=== PATIENT | male | born 1945 | race Caucasian/White ===

== ENCOUNTER 2016-07-06 10:10 | Observation (INO) ==
[2016-07-06] MEDS ORDERED: ENOXAPARIN 100 MG/ML SYRINGE SUBCUT STA (10:34)
--- NOTE | 2016-07-06 10:38 | EKG Report ---
Stationary ECG Study [facility] ER Test Date: 07/06/2016 10:18:29 AM Pat Name: RAHUL AWAN Department: Room: 265 Gender: M Records Assistant: : 1945 Requested by: Jadiel Stevenson Order Number: [id number] Reading MD: MITZI SANTIAGO Intervals [place] Rate: 73 P: 999 MN: 135 QRS: 265 QRSD: 172 T: 88 QT: 415 QTc: 440 Interpretive Statements ELECTRONIC ATRIO-VENTRICULAR SEQUENTIAL PACEMAKER Electronically Signed On 07-08-16 11:31:21 CDT by MITZI SANTIAGO [email or web address]
[2016-07-06] MEDS ORDERED: ENOXAPARIN 120 MG/0.8 ML SYRINGE SUBCUT ONE ×2 (10:44→22:00)
[2016-07-06] MEDS ORDERED: ACETAMINOPHEN 325 MG TABLET ONE (10:47)
[2016-07-06 10:50] LABS: Basophils # 0.1 10*3/uL (0.0-0.2); Basophils % 0.8 % (0.0-0.8); Eosinophils # 0.2 10*3/uL (0.0-0.87); Eosinophils % 2.8 % (0.00-10.9); Hematocrit 39.5 VOL% (42.0-52.0); Hemoglobin 13.8 GM/DL (14.0-18.0); Immature Granulocytes % 0.5 %; Immature Granulocytes Absolute 0.03 #; Lymphocytes # 1.2 10*3/uL (1.4-4.0); Lymphocytes % 20.3 % (21.2-54.2); Mean Corpuscular HGB Conc 34.9 GM/DL (32-36); Mean Corpuscular Hemoglobin 32 PG (27-34); Mean Corpuscular Volume 90.8 FL (87-102); Mean Platelet Volume 9.5 FL (9.6-12.0); Monocytes # 0.5 10*3/uL (0.11-0.8); Monocytes % 8.8 % (1.7-12.7); Neutrophils # 4.1 10*3/uL (1.4-7.4); Neutrophils % 66.8 % (38.7-73.9); Platelet Count 199 T/CUMM (130-400); Red Blood Count 4.35 MC/CUMM (3.8-5.5); Red Cell Distribution Width 12.9 % (9.3-17.3); White Blood Count 6.1 T/CUMM (4-12)
[2016-07-06] MEDS ORDERED: ACETAMINOPHEN 325 MG TABLET PO ONE (10:50)
--- NOTE | 2016-07-06 10:57 | XRay Report ---
Portable chest Date: 07/06/2016 Clinical history: Chest pain Comparison: 04/13/2016 Technique: Portable AP sitting chest Findings: The heart is borderline in size with left subclavian atrioventricular AICD. Chronic scarring in the lungs with stable mediastinum and osseous structures. Old healed clavicular fractures noted. Impression: No significant change in the appearance of the chest. The heart remains borderline in size with left subclavian atrioventricular AICD with chronic scarring in the lungs. PROCEDURE INTERPRETED AT [facility] DEPARTMENT OF RADIOLOGY Final Report Signed by: Dr. Valeria Turner
[2016-07-06 11:35] LABS: Albumin 3.5 G/DL (3.4-5.0); Bilirubin,Total 0.8 MG/DL (0.2-1.0); Calcium 8.8 MG/DL (8.5-10.1); Potassium 4.1 MMOL/L (3.5-5.1)
--- NOTE | 2016-07-06 11:46 | Emergency Department Note ---
Fco Walter Hilary, am scribing for, and in the presence of, Jadiel Franklin MD 10:38. Noemi Walter Phillip K, MD, personally performed the services described in this documentation, ascribed by Shira Eagle in my presence, and it is both accurate and complete 146 . Arrival - Arrival Chief Complaint: Chest Pain Stated Complaint: left pain in arm and chest pain ED Nursing Triage Note: c/o pain in chest onset 0600. c/o numbness in lt arm and headache. Mode of Arrival: Wheelchair Limitations: No Limitations Source: Patient, RN Notes Reviewed - History of Present Illness HPI Narrative: Pt is a 71 y/o male presenting to the ED with c/o left arm pain and chest pain which onset 0600. Pt confirms left arm pain and numbness, nausea, and slight chest pains but denies diaphoresis, fever, cough, swelling in legs or SOB. Pt states that the pain worsens with exertion and when he takes a Nitro it eases up but comes back. Pt has a PMHx of Cardiac Dysrhythmia, HTN, RI, Pacemaker,PVD , CAD and had a Cardiac cath Apr 13 2016. Onset (ago): hour(s) Consistency: constant Allergies/Adverse Reactions: Allergies Allergy/AdvReac Type Severity Reaction Status Date / Time hydrocodone [From Lortab] Allergy RASH Verified 11/01/14 09:45 indomethacin [From Indocin] Allergy ANAPHYLAXIS Verified 11/01/14 09:45 Penicillins Allergy HIVES Verified 11/01/14 09:45 Home Medications: Home Medications Medication Instructions Recorded Confirmed Type Ascorbic Acid [Vitamin C] 1,000 mg PO BID 11/01/14 07/06/16 History Aspirin [Ecotrin] 81 mg PO DAILY 11/01/14 07/06/16 History Atorvastatin Calcium [Lipitor] 80 mg PO BEDTIME 11/01/14 07/06/16 History Carvedilol [Coreg] 12.5 mg PO BID 11/01/14 07/06/16 History Cholecalciferol (Vitamin D3) 2,000 unit PO BID 11/01/14 07/06/16 History [Vitamin D3] Coenzyme Q10 200 mg PO DAILY 11/01/14 07/06/16 History Cyanocobalamin (Vitamin B-12) 2,000 mcg PO BID 11/01/14 07/06/16 History [Vitamin B-12] Digoxin Tab [Lanoxin Tab] 0.25 mg PO BEDTIME 11/01/14 07/06/16 History Docusate Sodium Cap [Colace Cap] 200 mg PO BID 11/01/14 07/06/16 History Eplerenone [Inspra] 25 mg PO DAILY 11/01/14 07/06/16 History Folic Acid 200 mg PO BID 11/01/14 07/06/16 History Furosemide Tab [Lasix Tab] 40 mg PO QAM 11/01/14 07/06/16 History Gabapentin 300 mg PO BEDTIME 11/01/14 07/06/16 History Iron 65 mg PO QOTHER DAY 11/01/14 07/06/16 History Isosorbide Mononitrate [Imdur] 60 mg PO DAILY 11/01/14 07/06/16 History Magnesium 500 mg PO BEDTIME 11/01/14 07/06/16 History NIFEdipine XL TAB [Procardia Xl] 30 mg PO DAILY 11/01/14 07/06/16 History Nitroglycerin Sl Tab [Nitrostat] 0.4 mg SL Q5M PRN 11/01/14 07/06/16 History Omeprazole [Prilosec] 20 mg PO BID 11/01/14 07/06/16 History Potassium Chloride 20 meq PO BID 11/01/14 07/06/16 History Pyridoxine HCl [Vitamin B-6] 200 mg PO BEDTIME 11/01/14 07/06/16 History QUEtiapine [SEROquel] 75 mg PO BEDTIME 11/01/14 07/06/16 History Ranolazine [Ranexa] 1,000 mg PO BID 11/01/14 07/06/16 History Sertraline [Zoloft] 200 mg PO DAILY 11/01/14 07/06/16 History Thyroid [[place] Thyroid] 120 mg PO DAILY 11/01/14 07/06/16 History buPROPion SR [Wellbutrin Sr] 300 mg PO DAILY 11/01/14 07/06/16 History Clopidogrel [Plavix] 75 mg PO DAILY #30 tablet 01/24/15 07/06/16 Rx Cilostazol [Pletal] 100 mg PO BID #60 tablet 04/14/16 07/06/16 Rx Review of System - Review of System 12 point system: reviewed and no additional remarkable complaints except as stated - Review of System Constitutional: Absent: diaphoresis, fever Respiratory: Present: respiratory distress (chronic SOB). Absent: cough Cardiovascular: Present: chest pain (Slight) Gastrointestinal: Absent: abdominal pain Musculoskeletal: Present: arm pain (Left arm pain and numbness). Absent: joint swelling Neurological: Present: numbness (left arm) Medical,Surgical,& Family Hx - Medical History Cardio: History of: Cardiac Dysrhythmia, CAD, Hypertension, RI, Pacemaker, PVD Psychological: History of: Anxiety Disorders, Depression, Psychiatric Problems Neurology: No history of: Seizures HEENT: History of: Eye Problem (right cataract) Endocrine: History of: Thyroid Disorder Gastrointestinal: History of: GERD Musculoskeletal: History of: Back/Neck Problems, Degenerative Disk Disease - Surgical History Cardiac Surgeries: Sugical HX of: Cardiac Catheterization (stents), Internal Defibrillator - Family History Family History: Reports;: Family Hypertension - Social History Smoking Status: Former smoker Frequency of Alcohol Use: None Type of Drug Use: None Exam Vital Signs: Vital Signs Temperature 97.9 F 07/06/16 10:22 Pulse Rate 70 07/06/16 11:00 Respiratory Rate 12 07/06/16 11:00 Blood Pressure 127/78 07/06/16 11:00 O2 Sat by Pulse Oximetry 96 07/06/16 11:00 - General General appearance: alert, in no apparent distress - Head Head exam: Present: atraumatic, normocephalic - Eye Eye exam: Present: normal appearance, PERRL, EOMI - ENT ENT exam: Present: mucous membranes moist, TM's normal bilaterally. Absent: mucous membranes dry - Neck Neck exam: Present: trachea midline. Absent: tenderness - Chest Chest inspection: Present: symmetric chest wall rise. Absent: tenderness - Respiratory Respiratory exam: Present: normal lung sounds bilaterally. Absent: respiratory distress - Cardiovascular Cardiovascular exam: Present: regular rate, normal rhythm, normal heart sounds. Absent: murmur, rubs, gallop - Abdominal Exam Abdominal exam: Present: soft, normal bowel sounds. Absent: distention, tenderness - Extremities Exam Extremities exam: Present: full ROM. Absent: tenderness, pedal edema - Back Exam Back exam: Present: full ROM, CVA tenderness (R), other (Right Paracervical tenderness, Right thoracic tenderness) - Neurological Exam Neurological exam: Present: alert, oriented X3, CN II-XII intact. Absent: motor sensory deficit - Psychiatric Psychiatric exam: Present: normal affect, normal mood - Skin Skin exam: Present: warm, dry, intact, normal color. Absent: rash Results - Labs CBC & BMP: 07/06/16 10:39 07/06/16 10:39 Lab Results: I have reviewed the patients labs (cardiac enzymes are negative) Labs: Laboratory Tests 07/06/16 10:39 WBC 6.1 RBC 4.35 Hgb 13.8 L Hct 39.5 L MPV 9.5 L Lymph % (Auto) 20.3 L Lymph # (Auto) 1.2 L Laboratory Tests 07/06/16 10:39 Sodium 143 Potassium 4.1 Chloride 107 Carbon Dioxide 28 Glucose 116 H Albumin/Globulin Ratio 1.0 L - EKG EKG results: interpreted by AJIT (pacemaker rhythm) - Diagnostic Findings Procedure: Chest x-ray: report reviewed by me (No significant change in the appearance of the chest. The heart remains borderline in size with left subclavian atrioventricular AICD with chronic scarring in the lungs. ) Disposition Clinical Impression: Unstable angina pectoris, Chest pain Case discussed with: patient, patient's family Disposition: Still a Patient Condition: Guarded Additional Instructions: Admitted to cardiology for further workup.
[2016-07-06] MEDS ORDERED: MAGNESIUM SULF RIDER 2 GM in PREMIX 1 EACH IV PRN ×3 (12:50→13:47)
[2016-07-06] MEDS ORDERED: DOCUSATE SODIUM 100 MG CAPSULE PO PRN (12:50)
[2016-07-06] MEDS ORDERED: ONDANSETRON 4 MG/2 ML VIAL IV PRN (12:50)
[2016-07-06] MEDS ORDERED: ZALEPLON 5 MG CAPSULE PO PRN (12:50)
[2016-07-06] MEDS ORDERED: MAGNESIUM SULF RIDER 4 GM in PREMIX 1 EACH IV PRN ×2 (12:50→13:47)
[2016-07-06] MEDS ORDERED: diphenhydrAMINE CAP 25 MG CAPSULE PO ONE (12:54)
[2016-07-06] MEDS ORDERED: DIAZEPAM 5 MG TABLET PO ONE (12:54)
[2016-07-06] MEDS ORDERED: POTASSIUM CHLORIDE RIDER 10 MEQ in PREMIX 1 EACH IV PRN (12:54)
--- NOTE | 2016-07-06 12:55 | Cardiology History & Physical ---
<Karina Mark E - Last Filed: 07/06/16 14:03> Assessment and Plan - Time spent with patient Time spent with patient: Greater than 30 minutes (1) CAD (coronary artery disease) Status: Chronic Assessment and plan: See plan of care listed below Current Visit: No (2) HTN (hypertension) Status: Chronic Assessment and plan: See plan of care listed below Current Visit: No (3) Hyperlipidemia Status: Chronic Assessment and plan: See plan of care listed below Current Visit: No (4) Paroxysmal atrial fibrillation Status: Chronic Assessment and plan: See plan of care listed below Current Visit: No (5) Chest pain Status: Acute Assessment and plan: See plan of care listed below Current Visit: Yes (6) ICD (implantable cardioverter-defibrillator) in place Status: Chronic Assessment and plan: See plan of care listed below Current Visit: No (7) Biventricular ICD (implantable cardioverter-defibrillator) in place Status: Chronic Assessment and plan: See plan of care listed below Current Visit: No (8) Ischemic cardiomyopathy Status: Chronic Assessment and plan: See plan of care listed below Current Visit: No (9) Left bundle branch block (LBBB) Status: Chronic Assessment and plan: See plan of care listed below Current Visit: No (10) Sleep apnea Status: Chronic Assessment and plan: See plan of care listed below Current Visit: No History of Present Illness Chief complaint: left arm pain, chest pain, SOB, known CAD History of present illness: NURSES' ASSOCIATION EXECUTIVE DIRECTOR: DR. JOSE CARLOS HAMMER PATIENT IS BEING SEEN IN THE ER OF [facility] Mr. Flood, 71WM, routinely followed by Dr. Hammer. He was last seen in marketing database analyst clinic April 27, 2016. Risk factors include: Age, known coronary artery disease, hypertension, hyperlipidemia, sedentary lifestyle, family history of premature coronary artery disease. He also has a history of compensated ischemic cardiomyopathy, status post ICD implantation, atrial fibrillation and sleep apnea. History of severe, complex, diffuse multivessel coronary artery disease. Most recently, April 13, 2016, patient underwent cardiac catheterization requiring PCI to the mid LAD, p.o. twice daily of the ostium of the first diagonal coronary artery. November 20, 2015 he underwent PCI of the mid LAD just proximal to and overlapping with the previously placed stent. PCI of some in-stent restenosis in the previously placed LAD artery stent. PCI to the first diagonal branch where it was jailed. Heart catheterization January 2015 patient required PCI to the mid LAD. At most recent discharge, patient has been maintained on aspirin, Plavix and Pletal. He has been compliant with his medications. Patient presented to the emergency department this morning after experiencing left arm pain. This is been occurring intermittently for approximately 3 weeks. He describes the discomfort as an aching sensation and cannot be reproduced with movement or palpation. He states that this discomfort is the same type of discomfort he had when PCI was being performed during heart catheterization. Patient also acknowledges he has had chest discomfort he labels as "indigestion" but describes as a heaviness and squeezing sensation in the center of his chest, occurring laterally across the mid chest area. This has been occurring over the past week intermittently. He is sedentary and therefore cannot identify a significant change in his exercise tolerance but does believe he is more short of breath with exertion over the past several weeks. He can identify no aggravating factors nor any alleviating factors. He rates the discomfort as a 7 on a scale of 1-10. He is currently chest pain and arm pain free. Patient also reports that this past week he felt as if he received an unusual sensation from his ICD. He felt as if he was "falling backwards" yet he was in bed asleep first 2 times. The third time he was awake sitting on the bedside when it occurred. He was not sure if it actually "fired" or just "felt funny". He had the device interrogated [facility]. He was found to be working appropriately without defibrillation. Cardiac biomarkers are negative. We will continue to cycle. EKG reveals a chronic left bundle branch block. I discussed with Dr. Bledsoe. Will admit him to telemetry, keep him n.p.o. after midnight tonight for cardiac catheterization to be performed by Dr. Hammer tomorrow around noon. He has received aspirin and Lovenox, nitrates. We will continue beta-blockers, lipid- lowering agents. Hold DOMINIC inhibitor until after heart catheterization. ASSESSMENT/PLAN: 1. CHEST PAIN - patient has severe, complex, diffuse multivessel coronary artery disease. Will keep n.p.o. for cardiac catheterization tomorrow 2. LEFT ARM PAIN -patient reports a left arm pain is "the exact pain Dr. Hammer was able to reproduce during the Product Sales Engineer procedure." Suspicious for angina 3. KNOWN, SEVERE CAD - see plan of care listed above 4. HYPERTENSION - will adjust medications accordingly during hospital stay 5. DYSLIPIDEMIA - continue lipid-lowering agent 6. SLEEP DISORDER - use sleep device while hospitalized 7. S/P ICD - recently interrogated and found to be working appropriately without a recent firing of the ICD Home Medications Medication Instructions Recorded Confirmed Type Ascorbic Acid [Vitamin C] 1,000 mg PO BID 11/01/14 07/06/16 History Aspirin [Ecotrin] 81 mg PO DAILY 11/01/14 07/06/16 History Atorvastatin Calcium [Lipitor] 80 mg PO BEDTIME 11/01/14 07/06/16 History Carvedilol [Coreg] 12.5 mg PO BID 11/01/14 07/06/16 History Cholecalciferol (Vitamin D3) 2,000 unit PO BID 11/01/14 07/06/16 History [Vitamin D3] Coenzyme Q10 200 mg PO DAILY 11/01/14 07/06/16 History Cyanocobalamin (Vitamin B-12) 2,000 mcg PO BID 11/01/14 07/06/16 History [Vitamin B-12] Digoxin Tab [Lanoxin Tab] 0.25 mg PO BEDTIME 11/01/14 07/06/16 History Docusate Sodium Cap [Colace Cap] 200 mg PO BID 11/01/14 07/06/16 History Eplerenone [Inspra] 25 mg PO DAILY 11/01/14 07/06/16 History Folic Acid 200 mg PO BID 11/01/14 07/06/16 History Furosemide Tab [Lasix Tab] 40 mg PO QAM 11/01/14 07/06/16 History Gabapentin 300 mg PO BEDTIME 11/01/14 07/06/16 History Iron 65 mg PO QOTHER DAY 11/01/14 07/06/16 History Isosorbide Mononitrate [Imdur] 60 mg PO DAILY 11/01/14 07/06/16 History Magnesium 500 mg PO BEDTIME 11/01/14 07/06/16 History NIFEdipine XL TAB [Procardia Xl] 30 mg PO DAILY 11/01/14 07/06/16 History Nitroglycerin Sl Tab [Nitrostat] 0.4 mg SL Q5M PRN 11/01/14 07/06/16 History Omeprazole [Prilosec] 20 mg PO BID 11/01/14 07/06/16 History Potassium Chloride 20 meq PO BID 11/01/14 07/06/16 History Pyridoxine HCl [Vitamin B-6] 200 mg PO BEDTIME 11/01/14 07/06/16 History QUEtiapine [SEROquel] 75 mg PO BEDTIME 11/01/14 07/06/16 History Ranolazine [Ranexa] 1,000 mg PO BID 11/01/14 07/06/16 History Sertraline [Zoloft] 200 mg PO DAILY 11/01/14 07/06/16 History Thyroid [[place] Thyroid] 120 mg PO DAILY 11/01/14 07/06/16 History buPROPion SR [Wellbutrin Sr] 300 mg PO DAILY 11/01/14 07/06/16 History Clopidogrel [Plavix] 75 mg PO DAILY #30 tablet 01/24/15 07/06/16 Rx Cilostazol [Pletal] 100 mg PO BID #60 tablet 04/14/16 07/06/16 Rx Allergies Allergy/AdvReac Type Severity Reaction Status Date / Time hydrocodone [From Lortab] Allergy RASH Verified 11/01/14 09:45 indomethacin [From Indocin] Allergy ANAPHYLAXIS Verified 11/01/14 09:45 Penicillins Allergy HIVES Verified 11/01/14 09:45 Review of systems: REVIEW OF SYSTEMS: See HPI - Constitutional Constitutional: Present: Chronic fatigue. Absent: syncope, anorexia, night sweats - EENT Eyes: Absent: blurry vision, loss of vision, diplopia Ears: Absent: decreased hearing, ear pain, ear discharge - Cardiovascular Cardiovascular: Present: chest pain with exertion and at rest. Dyspnea on exertion. Denies edema or palpitations. Absent: chest pain with deep breath, claudication - Respiratory Respiratory: Present: ZULETA, denies cough. Absent: wheezing, hemoptysis, change in phlegm color - Gastrointestinal Gastrointestinal: Denies constipation. Did have nausea this morning. Absent: abdominal pain, hematemesis, hematochezia, melena, change in bowel habits, nausea - Genitourinary Genitourinary: Absent: difficulty urinating, dysuria, urinary hesitancy, flank pain - Musculoskeletal Musculoskeletal: Present: back pain in mid and lower back previously requiring injections. Absent: joint swelling, muscle cramps, muscle weakness - Neurological Neurological: Present: normal gait without frequent falls. Absent: dizziness, hemiparesis - Psychiatric Psychiatric: Absent: anxiety, depression, difficulty concentrating - Endocrine Endocrine: Present: fatigue. Absent: cold intolerance, heat intolerance, polyuria, polyphagia, polydipsia - Hematologic/Lymphatic Hematologic/Lymphatic: Present: easy bruising. Absent: easy bleeding -Integumentary Integumentary: Absent: lesions, rashes, skin breakdown Medical,Surgical,& Family Hx - Medical History Cardio: History of: Cardiac Dysrhythmia, CAD, Hypertension, [place], Pacemaker, PVD Psychological: History of: Anxiety Disorders, Depression, Psychiatric Problems Neurology: No history of: Seizures HEENT: History of: Eye Problem (right cataract) Endocrine: History of: Thyroid Disorder Gastrointestinal: History of: GERD Musculoskeletal: History of: Back/Neck Problems, Degenerative Disk Disease - Surgical History Cardiac Surgeries: Sugical HX of: Cardiac Catheterization (stents), Internal Defibrillator - Family History Family History: Reports;: Family Hypertension - Social History Smoking Status: Former smoker Have you smoked in the last 12 months: No Frequency of Alcohol Use: None Type of Drug Use: None Marital Status: Lives With:: Spouse Functional capacity: independent ambulation Cardiology Physical Exam - Constitutional Vitals: Vital Signs Temp Pulse Resp BP Pulse Ox 97.9 F 72 13 137/74 95 07/06/16 10:22 07/06/16 11:30 07/06/16 11:30 07/06/16 11:30 07/06/16 11:30 Intake and Output 07/05/16 07/06/16 07/06/16 23:59 07:59 15:59 Other: Weight 113.852 kg Patient Weight 07/06/16 23:59 Weight 113.852 kg Exam: General: Awake alert and oriented 3. [Pleasant and cooperative. ] [Appears comfortable.] HEENT: [PERRL, normocephalic, atraumatic. Mucous membranes moist. No jaundice noted. Conjunctiva moist and clear, sclerae anicteric] Neck: No JVD/HJR, no thyromegaly or lymphadenopathy noted. No carotid bruit appreciated Cardiac: [Regular rate and rhythm.] [No obvious murmur rub or gallop.] 9 tender chest and shoulder area. Lungs: [Clear to auscultation without accessory muscle use to assist the respiratory pattern.] Using oxygen intermittently Abdomen: Soft, bowel sounds normoactive. Nontender and nondistended. No abdominal bruit or thrill noted. No masses noted. Musculoskeletal: No fluid collection. Decreased range of motion is noted. Extremities: No clubbing, cyanosis noted. [ No edema noted.] Upper extremity pulses 2+. Lower extremity pulses 2+. Capillary refill less than 3 seconds. Skin: No unusual lesions or rashes. No skin breakdown appreciated. Neuro: Moves all extremities well without hemiparesis or paralysis. No essential tremor is appreciated. Result/EKG - Labs CBC & BMP: 07/06/16 10:39 07/06/16 10:39 Lab Results: I have reviewed the past 24 hour labs Labs: Laboratory Results - last 24 hr 07/06/16 07/06/16 07/06/16 10:39 10:39 10:39 WBC 6.1 RBC 4.35 Hgb 13.8 L Hct 39.5 L MCV 90.8 MCH 32 MCHC 34.9 RDW 12.9 Plt Count 199 MPV 9.5 L Neut % (Auto) 66.8 Lymph % (Auto) 20.3 L [place] % (Auto) 8.8 Eos % (Auto) 2.8 Baso % (Auto) 0.8 Neut # (Auto) 4.1 Lymph # (Auto) 1.2 L [place] # (Auto) 0.5 Eos # (Auto) 0.2 Baso # (Auto) 0.1 Immature Gran % 0.5 Nucleated RBC % 0.0 Immature Gran # 0.03 Nucleated RBCs # 0.00 Sodium 143 Potassium 4.1 Chloride 107 Carbon Dioxide 28 Anion Gap 12.1 BUN 13 Creatinine 0.90 GFR Calculation 120 BUN/Creatinine Ratio 14.00 Glucose 116 H Calculated Osmolality 285.0 Calcium 8.8 Magnesium Total Bilirubin 0.80 AST 21 ALT 27 Alkaline Phosphatase 84 Troponin I 0.044 B-Natriuretic Peptide Total Protein 7.0 Albumin 3.5 Globulin 3.5 Albumin/Globulin Ratio 1.0 L 07/06/16 07/06/16 10:39 10:39 WBC RBC Hgb Hct MCV MCH MCHC RDW Plt Count MPV Neut % (Auto) Lymph % (Auto) [place] % (Auto) Eos % (Auto) Baso % (Auto) Neut # (Auto) Lymph # (Auto) [place] # (Auto) Eos # (Auto) Baso # (Auto) Immature Gran % Nucleated RBC % Immature Gran # Nucleated RBCs # Sodium Potassium Chloride Carbon Dioxide Anion Gap BUN Creatinine GFR Calculation BUN/Creatinine Ratio Glucose Calculated Osmolality Calcium Magnesium 2.3 Total Bilirubin AST ALT Alkaline Phosphatase Troponin I B-Natriuretic Peptide 79 Total Protein Albumin Globulin Albumin/Globulin Ratio - Diagnostic Findings Procedure: Chest x-ray: report reviewed by me - EKG EKG results: interpreted by me EKG shows: sinus rhythm (Left bundle branch block, chronic) <Caitlyn Bledsoe - Last Filed: 07/06/16 19:51> History of Present Illness History of present illness: I have personally interviewed and evaluated the patient, reviewed the chart and discussed medical decision-making with Practitioner Deedee. I have read this note and agree with her documentation here in. The patient has an anginal equivalent or left arm pain, and has been experiencing exertional symptoms of this angina. We will proceed with left heart catheterization tomorrow with Dr. Hammer. Patient is agreeable. No history of dye allergy. Cardiology Physical Exam - Constitutional Vitals: Vital Signs Temp Pulse Resp BP Pulse Ox 98.5 F 75 18 152/89 96 07/06/16 19:24 07/06/16 19:24 07/06/16 19:24 07/06/16 19:24 07/06/16 19:24 Intake and Output 07/06/16 07/06/16 07/06/16 07:59 15:59 23:59 Other: Weight 113.852 kg Patient Weight 07/06/16 23:59 Weight 113.852 kg Result/EKG - Labs CBC & BMP: 07/06/16 10:39 07/06/16 10:39 Labs: Laboratory Results - last 24 hr 07/06/16 07/06/16 15:48 18:42 Troponin I 0.031 0.043
[2016-07-06] MEDS: SODIUM CHLORIDE 0.45% 1,000 ML IV SCH (16:00)
[2016-07-06] MEDS: CARVEDILOL 12.5 MG TABLET PO SCH (22:59)
[2016-07-06] MEDS: POTASSIUM CHLORIDE 20 MEQ TABLET PO SCH (23:00)
[2016-07-06] MEDS: DIGOXIN 0.25 MG TABLET PO SCH (23:00)
[2016-07-06] MEDS: ATORVASTATIN 80 MG TABLET PO SCH (23:00)
[2016-07-06] MEDS: FOLIC ACID 0.4 MG TABLET PO SCH (23:00)
[2016-07-06] MEDS: GABAPENTIN 300 MG CAPSULE PO SCH (23:01)
[2016-07-06] MEDS: MAGNESIUM GLUCONATE 500 MG TABLET PO SCH (23:01)
[2016-07-06] MEDS: QUEtiapine 25 MG TABLET PO SCH (23:05)
[2016-07-06] MEDS: RANOLAZINE 500 MG TABLET PO SCH (23:05)
[2016-07-06] MEDS: CYANOCOBALAMIN 500 MCG TABLET PO SCH (23:05)
[2016-07-06] MEDS: PYRIDOXINE 100 MG TABLET PO SCH (23:05)
[2016-07-06] MEDS: CILOSTAZOL 100 MG TABLET PO SCH (23:05)
[2016-07-06] MEDS: CHOLECALCIFEROL 1,000 UNIT TABLET PO SCH (23:06)
[2016-07-06] MEDS: ASCORBIC ACID 500 MG TABLET PO SCH (23:06)
[2016-07-07] MEDS: NITROGLYCERIN SL 0.4 MG TABLET SL PRN ×3 (02:47→02:58)
[2016-07-07] MEDS ORDERED: MORPHINE 2 MG/1 ML SYRINGE ONE (03:11)
[2016-07-07] MEDS ORDERED: MORPHINE 2 MG/1 ML SYRINGE IV PRN (03:12)
[2016-07-07 04:50] LABS: Basophils % 0.5 % (0.0-0.8); Eosinophils # 0.2 10*3/uL (0.0-0.87); Eosinophils % 3.6 % (0.00-10.9); Hematocrit 36.2 VOL% (42.0-52.0); Hemoglobin 12.6 GM/DL (14.0-18.0); Immature Granulocytes % 0.5 %; Immature Granulocytes Absolute 0.03 #; Lymphocytes # 1.6 10*3/uL (1.4-4.0); Lymphocytes % 27.5 % (21.2-54.2); Mean Corpuscular HGB Conc 34.8 GM/DL (32-36); Mean Corpuscular Hemoglobin 32 PG (27-34); Mean Corpuscular Volume 91.4 FL (87-102); Mean Platelet Volume 9.6 FL (9.6-12.0); Monocytes # 0.5 10*3/uL (0.11-0.8); Monocytes % 8.7 % (1.7-12.7); Neutrophils # 3.4 10*3/uL (1.4-7.4); Neutrophils % 59.2 % (38.7-73.9); Platelet Count 172 T/CUMM (130-400); Red Blood Count 3.96 MC/CUMM (3.8-5.5); Red Cell Distribution Width 12.8 % (9.3-17.3); White Blood Count 5.8 T/CUMM (4-12)
[2016-07-07 05:29] LABS: Albumin 3.2 G/DL (3.4-5.0); Bilirubin,Total 0.8 MG/DL (0.2-1.0); Calcium 8.3 MG/DL (8.5-10.1); Osmolality,Calculated 283.1 MOS/KG (273-304); Potassium 3.6 MMOL/L (3.5-5.1); Risk Ratio 2.96; Total Protein 6.1 G/DL (6.4-8.3); VLDL CHOLESTEROL 20.4 MG/DL
--- NOTE | 2016-07-07 07:09 | EKG Report ---
Stationary ECG Study [facility] Test Date: 07/06/2016 5:13:58 PM Pat Name: RAHUL AWAN Department: Room: 265 Gender: M Pulverizer Feeder: Ct : 1945 Requested by: Jadiel Stevenson Order Number: [id number] Reading MD: PANFILO REMY Intervals [place] Rate: 70 P: 999 NV: 141 QRS: -69 QRSD: 168 T: 91 QT: 426 QTc: 447 Interpretive Statements ELECTRONIC VENTRICULAR PACEMAKER NO FURTHER INTERPRETATION POSSIBLE ATYPICAL ECG Electronically Signed On 07-08-16 15:16:26 CDT by PANFILO REMY [email or web address]
--- NOTE | 2016-07-07 07:10 | EKG Report ---
Stationary ECG Study [facility] Test Date: 07/07/2016 2:46:21 AM Pat Name: RAHUL AWAN Department: Room: 265 Gender: M It Technical Support Specialist: Giovanni : 1945 Requested by: Cl Galvan Order Number: [id number] Reading MD: CL GALVAN Intervals [place] Rate: 70 P: 999 NV: 101 QRS: 266 QRSD: 167 T: 80 QT: 442 QTc: 463 Interpretive Statements ELECTRONIC A-VENTRICULAR PACEMAKER NO FURTHER INTERPRETATION POSSIBLE ATYPICAL ECG Electronically Signed On 07-08-16 14:55:29 CDT by CL GALVAN [email or web address]
[2016-07-07] MEDS: CYANOCOBALAMIN 500 MCG TABLET PO SCH ×2 (09:10→22:15)
[2016-07-07] MEDS: buPROPion SR 150 MG TABLET PO SCH (09:11)
[2016-07-07] MEDS: RANOLAZINE 500 MG TABLET PO SCH ×2 (09:11→22:12)
[2016-07-07] MEDS: ASCORBIC ACID 500 MG TABLET PO SCH ×2 (09:12→22:17)
[2016-07-07] MEDS: CILOSTAZOL 100 MG TABLET PO SCH ×2 (09:12→22:15)
[2016-07-07] MEDS: CHOLECALCIFEROL 1,000 UNIT TABLET PO SCH ×2 (09:12→22:16)
[2016-07-07] MEDS: COENZYME Q10 100 MG CAPSULE PO SCH (09:13)
[2016-07-07] MEDS: THYROID 60 MG TABLET PO SCH (09:13)
[2016-07-07] MEDS: EPLERENONE 25 MG TABLET PO SCH (09:13)
[2016-07-07] MEDS: FOLIC ACID 0.4 MG TABLET PO SCH ×2 (09:13→22:13)
[2016-07-07] MEDS: CLOPIDOGREL 75 MG TABLET PO SCH (09:14)
[2016-07-07] MEDS: ISOSORBIDE MONONITRATE 60 MG TABLET PO SCH (09:14)
[2016-07-07] MEDS: CARVEDILOL 12.5 MG TABLET PO SCH ×2 (09:14→22:13)
[2016-07-07] MEDS: PANTOPRAZOLE 40 MG TABLET PO SCH (09:14)
[2016-07-07] MEDS: POTASSIUM CHLORIDE 20 MEQ TABLET PO SCH ×2 (09:14→22:14)
[2016-07-07] MEDS: SERTRALINE 100 MG TABLET PO SCH (09:14)
[2016-07-07] MEDS: ASPIRIN EC 81 MG TABLET PO SCH (09:15)
[2016-07-07] MEDS: FUROSEMIDE 40 MG TABLET PO SCH (09:16)
[2016-07-07] MEDS ORDERED: LIDOCAINE 1% 20 ML VIAL ONE ×2 (09:56→11:01)
[2016-07-07] MEDS ORDERED: DIAZEPAM 5 MG TABLET PO ONE (10:00)
[2016-07-07] MEDS ORDERED: diphenhydrAMINE CAP 25 MG CAPSULE PO ONE (10:00)
[2016-07-07] MEDS: SODIUM CHLORIDE 0.45% 1,000 ML IV SCH (10:04)
[2016-07-07] MEDS ORDERED: HEPARIN/NACL 0.9% 2 UNITS/ML 1,000 ML IV ONE (11:01)
[2016-07-07] MEDS ORDERED: HYDROmorphone 2 MG/1 ML VIAL ONE (11:35)
[2016-07-07] MEDS ORDERED: MIDAZOLAM 2 MG/2 ML VIAL ONE (11:35)
[2016-07-07] MEDS ORDERED: ENOXAPARIN 60 MG/0.6 ML SYRINGE ONE (11:52)
[2016-07-07] MEDS ORDERED: CLOPIDOGREL 300 MG TABLET ONE (11:55)
[2016-07-07] MEDS ORDERED: ACETAMINOPHEN 325 MG TABLET PO PRN (12:20)
[2016-07-07] MEDS ORDERED: ACETAMINOPHEN/CODEINE 300-30 MG TABLET PO PRN (12:20)
[2016-07-07] MEDS ORDERED: SODIUM CHLORIDE 0.9% 1,000 ML IV SCH (12:30)
--- NOTE | 2016-07-07 12:31 | Cardiac Catheterization ---
Date of Procedure:: 07/07/16 Procedure: CLINICAL SUMMARY: The patient presented with recurrent symptoms of unstable angina. He has known severe diffuse multivessel coronary artery disease and is now undergoing cardiac catheterization for definitive coronary artery assessment and possible revascularization. PROCEDURES PERFORMED: 1. Right femoral percutaneous arteriotomy 2. Resting hemodynamics. 3. Coronary arteriography. 4. Successful percutaneous coronary intervention to the proximal left anterior descending coronary artery with a 2.5 x 12 mm Xience Alpine drug-eluting stent. 5. Successful percutaneous coronary intervention to the first diagonal branch with balloon angioplasty through the side of the stent with a 2.5 x 12 mm Farrell angioplasty balloon. 6. Right femoral arteriogram. 7. Angio-Seal closure of the right femoral artery. DESCRIPTION OF PROCEDURE: After obtaining informed consent, the patient was brought to the cardiac catheterization lab where the right groin was prepped and draped in the usual sterile manner. Using IV sedation, local anesthesia, and Modified Seldinger technique, a needle was placed in the right femoral artery and a sheath was positioned without difficulty. A left coronary catheter was advanced over a guidewire under fluoroscopic control to the ascending aorta where angiograms of the left coronary artery were undertaken in multiple views. After adequate angiograms, this catheter was withdrawn and we proceeded directly to percutaneous coronary intervention. We engaged the left main coronary artery with an EBU 3.75 interventional guide and passed PT Graphix wire beyond the area of stenosis in the proximal left anterior setting coronary artery. Performed balloon angioplasty of a high-grade lesion with a 2.5 x 12 mm Farrell angioplasty balloon. I then pulled the wire backing crossed into the diagonal branch and used the same balloon to perform balloon angioplasty of the ostial first diagonal branch. I then reposition the wire in the distal left anterior descending coronary artery and I stented the left anterior descending coronary artery with a 2.5 x 12 mm Xience Alpine drug- eluting stent. This stent was within a previously placed in an overlapping with the next previously placed stent. An excellent angiographic result was achieved at the site of intervention with no significant residual stenosis. We then pulled our wire back and passed into the diagonal branch again. We had to use a new 2.5 x 12 mm Farrell balloon but we were able to perform balloon angioplasty of the jailed first diagonal branch. A good angiographic result was achieved. There were no problems or complications with the intervention. After the intervention, a right femoral arteriogram was performed showing adequate sheath placement for closure device deployment. The sheath was then removed and an Angio-Seal device was used to obtain hemostasis. The patient was transferred back to the room having suffered no immediate complications. HEMODYNAMICS: See the accompanying data sheet. CORONARY ARTERIOGRAPHY: LEFT MAIN: The left main coronary artery is a large caliber vessel, which trifurcates into the left anterior descending , ramus intermedius and left circumflex coronary arteries. The left main coronary artery has no significant obstructive disease. LEFT CIRCUMFLEX: The left circumflex coronary artery is a moderate size vessel which gives off a small diffusely diseased first obtuse marginal branch and a moderate size second obtuse marginal branch. There are some diffuse atherosclerotic disease but no significant focal obstruction in the left circumflex system. There has been no significant change in this vessel since the previous catheterization. RAMUS INTERMEDIUS: Ramus intermedius is a moderate size vessel which courses over the anterolateral wall. It has diffuse mild to moderate atherosclerosis but no significant focal obstruction. There is a stent in the distal portion of this vessel which is widely patent. LEFT ANTERIOR DESCENDING: The left anterior descending artery is a moderate size vessel which gives off a moderate-sized diagonal branch proximally. The left anterior descending artery wraps the apex. There is significant in-stent restenosis within the previously placed in the proximal left anterior descending coronary artery involving the origin of the first diagonal branch of up to 90%. There is also a 90% stenosis of the origin of the diagonal branch. The previously placed stents in the midportion of the vessel which were done at his previous catheterization are widely patent. The distal left anterior see a artery has some diffuse disease but no focal high-grade obstruction. RIGHT CORONARY ARTERY: The right coronary artery is known to be occluded in its midsegment from multiple catheterizations in the past and was not reengaged at this time. There is filling of the distal vessel via contralateral collaterals. LEFT VENTRICULOGRAPHY: Left ventriculogram was not performed at this time. PERIPHERAL ARTERIOGRAPHY: Right femoral arteriogram shows a normal right iliofemoral artery with adequate sheath placement for closure device deployment. IMPRESSIONS: 1. Successful for continues coronary intervention to the proximal left anterior setting coronary artery at the site of in-stent restenosis with a 2.5 x 12 mm Xience Alpine drug-eluting stent. 2. Successful percutaneous coronary intervention to the jailed first diagonal branch with a 2.5 x 12 mm Farrell angioplasty balloon. 3. The right coronary artery is known to be occluded. The distal vessel fills via collaterals. 4. Known severe ischemic cardiomyopathy. I did not repeat ventriculography at this time. 5. Normal right iliofemoral artery with successful and distal closure. PLAN: The patient was transferred to his room for post-interventional monitoring and management. If he does well overnight and probably send him home tomorrow with follow-up in a week or 2. Anesthesia: minimal conscious sedation Surgeon / Physician: Jose Hammer Estimated blood loss: minimal Condition: stable Disposition: floor - Medications / Follow-up
--- NOTE | 2016-07-07 13:53 | EKG Report ---
Stationary ECG Study [facility] Test Date: 07/07/2016 1:53:14 PM Pat Name: RAHUL AWAN Department: Room: 265 Gender: M Physician Assistant Psychiatry: ALEXUS : 1945 Requested by: Maryuri Garcia Order Number: [id number] Lc MD: NASEEM SOLOMON Intervals [place] Rate: 70 P: 114 AK: 164 QRS: 263 QRSD: 180 T: 86 QT: 430 QTc: 451 Interpretive Statements AV SEQUENTIAL PACED RHYTHM NO OTHER INTERPRETATION POSSIBLE Electronically Signed On 07-12-16 07:16:11 CDT by NASEEM SOLOMON [email or web address]
[2016-07-07] MEDS: QUEtiapine 25 MG TABLET PO SCH (22:13)
[2016-07-07] MEDS: DIGOXIN 0.25 MG TABLET PO SCH (22:14)
[2016-07-07] MEDS: ATORVASTATIN 80 MG TABLET PO SCH (22:14)
[2016-07-07] MEDS: PYRIDOXINE 100 MG TABLET PO SCH (22:14)
[2016-07-07] MEDS: GABAPENTIN 300 MG CAPSULE PO SCH (22:14)
[2016-07-07] MEDS: MAGNESIUM GLUCONATE 500 MG TABLET PO SCH (22:15)
[2016-07-08 04:38] LABS: Basophils % 0.5 % (0.0-0.8); Eosinophils # 0.2 10*3/uL (0.0-0.87); Eosinophils % 3.6 % (0.00-10.9); Hematocrit 36.7 VOL% (42.0-52.0); Hemoglobin 12.8 GM/DL (14.0-18.0); Immature Granulocytes % 0.4 %; Immature Granulocytes Absolute 0.02 #; Lymphocytes # 0.9 10*3/uL (1.4-4.0); Lymphocytes % 16.9 % (21.2-54.2); Mean Corpuscular HGB Conc 34.9 GM/DL (32-36); Mean Corpuscular Hemoglobin 32 PG (27-34); Mean Corpuscular Volume 92.7 FL (87-102); Mean Platelet Volume 9.4 FL (9.6-12.0); Monocytes # 0.5 10*3/uL (0.11-0.8); Monocytes % 8.8 % (1.7-12.7); Neutrophils # 3.9 10*3/uL (1.4-7.4); Neutrophils % 69.8 % (38.7-73.9); Platelet Count 158 T/CUMM (130-400); Red Blood Count 3.96 MC/CUMM (3.8-5.5); Red Cell Distribution Width 12.8 % (9.3-17.3); White Blood Count 5.6 T/CUMM (4-12)
[2016-07-08 05:29] LABS: Blood Urea Nitrogen 15 MG/DL (7-18); Calcium 8.8 MG/DL (8.5-10.1); Glucose 112 MG/DL (74-106); Osmolality,Calculated 284.1 MOS/KG (273-304); Potassium 4.3 MMOL/L (3.5-5.1); Sodium 142 MMOL/L (136-145)
[2016-07-08 05:38] LABS: Troponin I Only 0.194 NG/ML (0.00-0.045)
[2016-07-08] MEDS: SODIUM CHLORIDE 0.45% 1,000 ML IV SCH ×2 (06:09→06:11)
[2016-07-08 07:48] VITALS: BP 138/75
--- NOTE | 2016-07-08 08:26 | EKG Report ---
Stationary ECG Study [facility] Test Date: 07/08/2016 8:25:49 AM Pat Name: RAHUL AWAN Department: Room: 265 Gender: M Turner And Former Automatic: ALEXUS : 1945 Requested by: Maryuri Garcia Order Number: [id number] Lc MD: NASEEM SOLOMON Intervals [place] Rate: 82 P: 106 IA: 163 QRS: -89 QRSD: 180 T: 122 QT: 407 QTc: 445 Interpretive Statements ELECTRONIC ATRIAL PACEMAKER ELECTRONIC VENTRICULAR PACEMAKER ABNORMAL RHYTHM ECG Electronically Signed On 07-12-16 07:45:42 CDT by NASEEM SOLOMON [email or web address]
[2016-07-08] MEDS: RANOLAZINE 500 MG TABLET PO SCH (08:54)
[2016-07-08] MEDS: CYANOCOBALAMIN 500 MCG TABLET PO SCH (08:54)
[2016-07-08] MEDS: CHOLECALCIFEROL 1,000 UNIT TABLET PO SCH (08:55)
[2016-07-08] MEDS: PANTOPRAZOLE 40 MG TABLET PO SCH (08:55)
[2016-07-08] MEDS: POTASSIUM CHLORIDE 20 MEQ TABLET PO SCH (08:55)
[2016-07-08] MEDS: ISOSORBIDE MONONITRATE 60 MG TABLET PO SCH (08:55)
[2016-07-08] MEDS: FUROSEMIDE 40 MG TABLET PO SCH (08:55)
[2016-07-08] MEDS: CARVEDILOL 12.5 MG TABLET PO SCH (08:55)
[2016-07-08] MEDS: CLOPIDOGREL 75 MG TABLET PO SCH (08:55)
[2016-07-08] MEDS: FOLIC ACID 0.4 MG TABLET PO SCH (08:55)
[2016-07-08] MEDS: SERTRALINE 100 MG TABLET PO SCH (08:55)
[2016-07-08] MEDS: THYROID 60 MG TABLET PO SCH (08:56)
[2016-07-08] MEDS: CILOSTAZOL 100 MG TABLET PO SCH (08:56)
[2016-07-08] MEDS: COENZYME Q10 100 MG CAPSULE PO SCH (08:56)
[2016-07-08] MEDS: EPLERENONE 25 MG TABLET PO SCH (08:56)
[2016-07-08] MEDS: ASPIRIN EC 81 MG TABLET PO SCH (08:56)
[2016-07-08] MEDS ORDERED: FERROUS SULFATE 325 MG TABLET PO SCH (09:00)
[2016-07-08] MEDS: buPROPion SR 150 MG TABLET PO SCH (09:00)
[2016-07-08] MEDS: ASCORBIC ACID 500 MG TABLET PO SCH (09:00)
--- NOTE | 2016-07-08 10:52 | Discharge Summary ---
<Karina Mark E - Last Filed: 07/08/16 10:52> Hospital Course - Hospital Course Hospital Course: MANA[employer]: DR. JOSE HAMMER Patient presented to the emergency department at [facility] July 06, 2016 with complaints of left arm pain. The symptoms were concerning for angina. He underwent elective cardiac catheterization July 07, [address] Hammer with the following impression noted: IMPRESSIONS: 1. Successful for continues coronary intervention to the proximal left anterior setting coronary artery at the site of in-stent restenosis with a 2.5 x 12 mm Xience Alpine drug-eluting stent. 2. Successful percutaneous coronary intervention to the jailed first diagonal branch with a 2.5 x 12 mm [place] angioplasty balloon. 3. The right coronary artery is known to be occluded. The distal vessel fills via collaterals. 4. Known severe ischemic cardiomyopathy. I did not repeat ventriculography at this time. 5. Normal right iliofemoral artery with successful and distal closure. He tolerated the procedure well without complication was returned to our telemetry unit in stable condition. Overnight, he did well without chest pain, heaviness, tightness. No complaints of left arm and shoulder pain. He has been ambulating without complaints. Labs are stable. Right groin soft, free of hematoma or bruit. He is anxious for release home. Having felt him at maximal medical therapy, patient is being discharged home in stable condition. He is being given a 1-2 week follow-up appointment with Dr. Hammer. At that visit the following will be obtained: BMP, magnesium, CBC. EKG Cardiac discharge medications include the following: Aspirin 81 mg orally daily Coreg 12.5 mg orally twice daily Plavix 75 mg orally daily Cilostazol 100 mg orally twice daily Digoxin 0.25 mg orally each evening Lasix 40 mg orally daily Imdur 60 mg orally daily Nifedipine 30 Milgram's orally daily Ranexa 1000mg orally BID Atorvastatin 80 mg orally each evening BP unable to tolerate DOMINIC-Inhibitor. - Time spent with patient Time with patient DS: Greater than 30 minutes Diagnosis - Discharge Diagnosis (1) CAD (coronary artery disease) Status: Chronic (2) HTN (hypertension) Status: Chronic (3) Hyperlipidemia Status: Chronic (4) Paroxysmal atrial fibrillation Status: Chronic (5) Chest pain Status: Resolved (6) ICD (implantable cardioverter-defibrillator) in place Status: Chronic (7) Biventricular ICD (implantable cardioverter-defibrillator) in place Status: Chronic (8) Ischemic cardiomyopathy Status: Chronic (9) Left bundle branch block (LBBB) Status: Chronic (10) Sleep apnea Status: Chronic Specialty Discharge - Follow Up or Referrals Follow up with: Jose Hammer MD [Primary Care Provider] - 07/20/16 1:20 pm (BMP, Mg, CBC. EKG. BE there at 1:10 pm for lab work. ) Discharge Plan - Discharge Data Disposition: Disch To Home/Self Care Condition at Discharge: Stable Discharge Diet: heart healthy Activity: other (Post cath expectations) Hygiene: other (Post cath expectations) Weight Bearing at Discharge: other (Post cath expectations) Driving: other (Post cath expectations) Contact your physician if you experience:: fever over 101, Difficulty voiding, Redness or swelling, Nausea/Vomiting, Shortness of breath, Bleeding, pain uncontrolled by pain medications - Discharge Medications Continue Nitroglycerin Sl Tab [Nitrostat] 0.4 mg SL Q5M PRN PRN Reason: Chest Pain Ascorbic Acid [Vitamin C] 1,000 mg PO BID Pyridoxine HCl [Vitamin B-6] 200 mg PO BEDTIME Magnesium 500 mg PO BEDTIME Folic Acid 200 mg PO BID Cyanocobalamin (Vitamin B-12) [Vitamin B-12] 2,000 mcg PO BID Coenzyme Q10 200 mg PO DAILY Cholecalciferol (Vitamin D3) [Vitamin D3] 2,000 unit PO BID Gabapentin 300 mg PO BEDTIME Docusate Sodium Cap [Colace Cap] 200 mg PO BID Potassium Chloride 20 meq PO BID Omeprazole [Prilosec] 20 mg PO BID Sertraline [Zoloft] 200 mg PO DAILY QUEtiapine [SEROquel] 75 mg PO BEDTIME buPROPion SR [Wellbutrin Sr] 300 mg PO DAILY Digoxin Tab [Lanoxin Tab] 0.25 mg PO BEDTIME Atorvastatin Calcium [Lipitor] 80 mg PO BEDTIME Carvedilol [Coreg] 12.5 mg PO BID Ranolazine [Ranexa] 1,000 mg PO BID Eplerenone [Inspra] 25 mg PO DAILY NIFEdipine XL TAB [Procardia Xl] 30 mg PO DAILY Aspirin [Ecotrin] 81 mg PO DAILY Isosorbide Mononitrate [Imdur] 60 mg PO DAILY Iron 65 mg PO QOTHER DAY Thyroid [[place] Thyroid] 120 mg PO DAILY Furosemide Tab [Lasix Tab] 40 mg PO QAM Clopidogrel [Plavix] 75 mg PO DAILY #30 tablet Cilostazol [Pletal] 100 mg PO BID #60 tablet - Follow Up or Referral Follow Up: Jose Hammer MD [Primary Care Provider] - 07/20/16 1:20 pm (BMP, Mg, CBC. EKG. BE there at 1:10 pm for lab work. ) - Forms/Instructions Instructions: Right Heart Catheterization (DC), Acute Coronary Syndrome Exam - Constitutional Vitals: Period Temp Pulse Resp BP Sys/Franco Pulse Ox Last 24 Hr 97.8 F-98.2 F 69-84 18-20 120-138/57-79 92-95 Exam: General: [Appears well with no apparent distress.] [Pleasant and cooperative. ] [Appears comfortable.] HEENT: [PERRL, normocephalic, atraumatic. Mucous membranes moist. No jaundice noted. Conjunctiva moist and clear, sclerae anicteric] Neck: No JVD/HJR, no thyromegaly or lymphadenopathy noted. No carotid bruit appreciated Cardiac: [Regular rate and rhythm.] [No murmur rub or gallop.] Lungs: [Clear to auscultation without accessory muscle use to assist the respiratory pattern.] Not requiring oxygen Abdomen: Soft, bowel sounds normoactive. Nontender and nondistended. No abdominal bruit or thrill noted. No masses noted. Musculoskeletal: No fluid collection. Decreased range of motion is noted. Extremities: Right groin soft, free of hematoma or bruit no clubbing, cyanosis noted. [ No edema noted.] Upper extremity pulses 2+. Lower extremity pulses 2+ . Capillary refill less than 3 seconds. Skin: No unusual lesions or rashes. No skin breakdown appreciated. Neuro: Awake, alert and oriented 3. Moves all extremities well without hemiparesis or paralysis. No essential tremor is appreciated. Discharge Results Labs on day of discharge: Labs from last 24 hours 07/08/16 07/08/16 04:09 04:09 WBC 5.6 RBC 3.96 Hgb 12.8 L Hct 36.7 L MCV 92.7 MCH 32 MCHC 34.9 RDW 12.8 Plt Count 158 MPV 9.4 L Neut % (Auto) 69.8 Lymph % (Auto) 16.9 L [place] % (Auto) 8.8 Eos % (Auto) 3.6 Baso % (Auto) 0.5 Neut # (Auto) 3.9 Lymph # (Auto) 0.9 L [place] # (Auto) 0.5 Eos # (Auto) 0.2 Baso # (Auto) 0.0 Immature Gran % 0.4 Nucleated RBC % 0.0 Immature Gran # 0.02 Nucleated RBCs # 0.00 Sodium 142 Potassium 4.3 Chloride 107 Carbon Dioxide 29 Anion Gap 10.3 BUN 15 Creatinine 0.90 GFR Calculation 120 BUN/Creatinine Ratio 16.00 Glucose 112 H Calculated Osmolality 284.1 Calcium 8.8 Total Creatine Kinase 48 CK-MB (CK-2) 1.8 Troponin I 0.194 H D - Imaging and Cardiology Cardiology Procedure: report reviewed by me Procedure: Chest x-ray: report reviewed by me DS: Provider Date of admission: 07/06/16 13:47 Primary care physician: Jose Hammer MD Attending physician on admission: Caitlyn Bledsoe, Consults: 07/06/16 15:03 Consult to Pharmacy [CONS] Routine Reason for Pharmacy Consult: Adjust Meds Renal Funct Discharging clinician: Karina Mark NP Expected date of discharge: 07/08/16 <Caitlyn Bledsoe - Last Filed: 07/08/16 15:14> Hospital Course - Hospital Course Hospital Course: I have personally interviewed and evaluated the patient, reviewed the chart and discussed medical decision-making with Practitioner Deedee. I have read this note and agree with her documentation here in.
== END 2016-07-08 11:47 | disposition home or self-care (01) ==
LOC: N.ED 10:10 → N.EDINP 10:10 → N.TELES 14:04
PROVIDERS: ADMIT Internal Medicine Cardiovascular Disease; ATTEND Internal Medicine Cardiovascular Disease

== ENCOUNTER 2016-10-11 06:20 | Observation (INO) ==
[2016-10-11] MEDS ORDERED: NITROGLYCERIN 2% OINT 1 INCH/GM PACK TOP STA (06:41)
[2016-10-11] MEDS ORDERED: ONDANSETRON 4 MG/2 ML VIAL IV STA (06:41)
--- NOTE | 2016-10-11 06:44 | EKG Report ---
Stationary ECG Study [facility] ER Test Date: 10/11/2016 6:30:33 AM Pat Name: RAHUL AWAN Department: Room: Gender: M Gas Controller: : 1945 Requested by: Archie Nova Order Number: [id number] Lc MD: ELO KRISHNAMURTHY Intervals [place] Rate: 73 P: 121 LA: 164 QRS: -85 QRSD: 181 T: 86 QT: 454 QTc: 480 Interpretive Statements ELECTRONIC ATRIAL PACEMAKER ELECTRONIC VENTRICULAR PACEMAKER ABNORMAL RHYTHM ECG Electronically Signed On 10-11-16 11:02:49 CDT by ELO KRISHNAMURTHY [email or web address]
--- NOTE | 2016-10-11 06:45 | Emergency Department Note ---
Arrival - Arrival Chief Complaint: Chest Pain Stated Complaint: Heart attack ED Nursing Triage Note: pt presented to triage ambulatory and c/o intermittent L CP x 1 week. pain worse this morning and woke him from his sleep. Nitro taken COUNTER HELPER. pt brought immediately back to RM 14 and triaged, gown and connected to monitor. Mode of Arrival: Ambulatory Limitations: No Limitations Source: Patient Time Seen by Provider: 10/11/16 06:41 - History of Present Illness HPI Narrative: This 71-year-old white male presents with one-week of intermittent left arm pain associated with shortness of breath, diaphoresis, and nausea. The patient has a prior history of ischemic heart disease followed by Dr. Hammer for which is recently in June he has had stenting. He had been doing well up until the past week. He presents this morning after awakening to several bouts of discomfort although at this moment he is pain-free. He does have a history of prior myocardial infarct and pacemaker. At the moment he is medically stable. Onset (ago): week(s) (Patient presents with one-week of symptoms) Allergies/Adverse Reactions: Allergies Allergy/AdvReac Type Severity Reaction Status Date / Time hydrocodone [From Lortab] Allergy RASH Verified 11/01/14 09:45 indomethacin [From Indocin] Allergy ANAPHYLAXIS Verified 11/01/14 09:45 Penicillins Allergy HIVES Verified 11/01/14 09:45 Home Medications: Home Medications Medication Instructions Recorded Confirmed Type Ascorbic Acid [Vitamin C] 1,000 mg PO BID 11/01/14 07/06/16 History Aspirin [Ecotrin] 81 mg PO DAILY 11/01/14 07/06/16 History Atorvastatin Calcium [Lipitor] 80 mg PO BEDTIME 11/01/14 07/06/16 History Carvedilol [Coreg] 12.5 mg PO BID 11/01/14 07/06/16 History Cholecalciferol (Vitamin D3) 2,000 unit PO BID 11/01/14 07/06/16 History [Vitamin D3] Coenzyme Q10 200 mg PO DAILY 11/01/14 07/06/16 History Cyanocobalamin (Vitamin B-12) 2,000 mcg PO BID 11/01/14 07/06/16 History [Vitamin B-12] Digoxin Tab [Lanoxin Tab] 0.25 mg PO BEDTIME 11/01/14 07/06/16 History Docusate Sodium Cap [Colace Cap] 200 mg PO BID 11/01/14 07/06/16 History Eplerenone [Inspra] 25 mg PO DAILY 11/01/14 07/06/16 History Folic Acid 200 mg PO BID 11/01/14 07/06/16 History Furosemide Tab [Lasix Tab] 40 mg PO QAM 11/01/14 07/06/16 History Gabapentin 300 mg PO BEDTIME 11/01/14 07/06/16 History Iron 65 mg PO QOTHER DAY 11/01/14 07/06/16 History Isosorbide Mononitrate [Imdur] 60 mg PO DAILY 11/01/14 07/06/16 History Magnesium 500 mg PO BEDTIME 11/01/14 07/06/16 History NIFEdipine XL TAB [Procardia Xl] 30 mg PO DAILY 11/01/14 07/06/16 History Nitroglycerin Sl Tab [Nitrostat] 0.4 mg SL Q5M PRN 11/01/14 07/06/16 History Omeprazole [Prilosec] 20 mg PO BID 11/01/14 07/06/16 History Potassium Chloride 20 meq PO BID 11/01/14 07/06/16 History Pyridoxine HCl [Vitamin B-6] 200 mg PO BEDTIME 11/01/14 07/06/16 History QUEtiapine [SEROquel] 75 mg PO BEDTIME 11/01/14 07/06/16 History Ranolazine [Ranexa] 1,000 mg PO BID 11/01/14 07/06/16 History Sertraline [Zoloft] 200 mg PO DAILY 11/01/14 07/06/16 History Thyroid [[place] Thyroid] 120 mg PO DAILY 11/01/14 07/06/16 History buPROPion SR [Wellbutrin Sr] 300 mg PO DAILY 11/01/14 07/06/16 History Clopidogrel [Plavix] 75 mg PO DAILY #30 tablet 01/24/15 07/06/16 Rx Cilostazol [Pletal] 100 mg PO BID #60 tablet 04/14/16 07/06/16 Rx Review of System - Review of System 12 point system: reviewed and no additional remarkable complaints except as stated - Review of System Constitutional: Present: as per HPI Respiratory: Present: as per HPI Cardiovascular: Present: as per HPI Gastrointestinal: Present: as per HPI Medical,Surgical,& Family Hx - Medical History Cardio: History of: Cardiac Dysrhythmia, CAD, Hypertension, [place], Pacemaker, PVD Psychological: History of: Anxiety Disorders, Depression, Violent Behavior (PTSD ), Psychiatric Problems Neurology: No history of: Seizures HEENT: History of: Eye Problem (right cataract) Endocrine: History of: Thyroid Disorder Gastrointestinal: History of: GERD Musculoskeletal: History of: Back/Neck Problems, Degenerative Disk Disease - Surgical History Cardiac Surgeries: Sugical HX of: Cardiac Catheterization (stents), Internal Defibrillator - Family History Family History: Reports;: Family Hypertension - Social History Smoking Status: Former smoker Frequency of Alcohol Use: Occasionally Type of Drug Use: None Exam Physical Examination: GENERAL: Well developed, well nourished elderly white male in no acute distress. HEENT: Normocephalic. No trauma. Moist mucous membranes. EOMI. PERRLA. ENT NML NECK: Supple. No adenopathy. CARDIAC: Regular. No murmurs. Heart rate 73 CHEST: Clear to auscultation. No respiratory distress. O2 sat 96% ABDOMEN: Soft. Nontender. Active bowel sounds. EXTREMITIES: No trauma. Normal ROM. No pedal edema. SKIN: No diaphoresis. No rash. NEURO: Alert. Oriented 3. Motor, sensory, vibratory intact. No focal deficits. Vital Signs: Vital Signs Temperature 98 F 10/11/16 06:42 Pulse Rate 74 10/11/16 06:42 Respiratory Rate 16 10/11/16 06:42 Blood Pressure 166/86 10/11/16 06:42 O2 Sat by Pulse Oximetry 96 10/11/16 06:24 Course - Reevaluation(s) Reevaluation #1: Discussed with patient and family the need for hospitalization to further elaborate his chest pain. - Consultations Consultation #1: Discussed with Dr. Bledsoe who will see the patient for further evaluation. Results - Labs CBC & BMP: 10/11/16 06:36 10/11/16 06:36 - Impressions EKG: Paced rhythm at 72. No other comments can be made. - Diagnostic Findings Procedure: Chest x-ray: image reviewed by me, report reviewed by me (Borderline cardiomegaly with some peripheral scarring and left chest pacemaker with no interval change in appearance.) Disposition Clinical Impression: Chest pain, Ischemic heart disease, Pacemaker Case discussed with: patient, patient's family Disposition: Still a Patient Condition: Guarded Time of Disposition: 07:32
[2016-10-11] MEDS ORDERED: ONDANSETRON 4 MG/2 ML VIAL ONE (06:47)
[2016-10-11] MEDS ORDERED: NITROGLYCERIN 2% OINT 1 INCH/GM PACK TOP ONE (06:47)
[2016-10-11 06:50] LABS: Basophils % 0.4 % (0.0-0.8); Eosinophils # 0.2 10*3/uL (0.0-0.87); Eosinophils % 3.4 % (0.00-10.9); Hematocrit 38.2 VOL% (42.0-52.0); Hemoglobin 13.8 GM/DL (14.0-18.0); Immature Granulocytes % 0.4 %; Immature Granulocytes Absolute 0.03 #; Lymphocytes # 1.4 10*3/uL (1.4-4.0); Lymphocytes % 21.4 % (21.2-54.2); Mean Corpuscular HGB Conc 36.1 GM/DL (32-36); Mean Corpuscular Hemoglobin 33 PG (27-34); Mean Corpuscular Volume 91.8 FL (87-102); Mean Platelet Volume 9.3 FL (9.6-12.0); Monocytes # 0.5 10*3/uL (0.11-0.8); Monocytes % 7.6 % (1.7-12.7); Neutrophils # 4.4 10*3/uL (1.4-7.4); Neutrophils % 66.8 % (38.7-73.9); Platelet Count 173 T/CUMM (130-400); Red Blood Count 4.16 MC/CUMM (3.8-5.5); Red Cell Distribution Width 12.8 % (9.3-17.3); White Blood Count 6.7 T/CUMM (4-12)
[2016-10-11 07:00] LABS: PT Patient Result 10.4 SECS
[2016-10-11 07:11] LABS: Alanine Aminotransferase 29 U/L (16-61); Albumin 3.4 G/DL (3.4-5.0); Alkaline Phosphatase 81 U/L (45-117); Aspartate Amino Transferase 21 U/L (0-37); Blood Urea Nitrogen 14 MG/DL (7-18); Calcium 9.2 MG/DL (8.5-10.1); Glucose 128 MG/DL (74-106); Osmolality,Calculated 285.1 MOS/KG (273-304); Potassium 3.6 MMOL/L (3.5-5.1); Sodium 142 MMOL/L (136-145); Total Protein 6.8 G/DL (6.4-8.3)
[2016-10-11 07:12] LABS: Troponin I Only 0.077 NG/ML (0.00-0.045)
--- NOTE | 2016-10-11 07:59 | XRay Report ---
XR chest 2V Indication: Chest pain Comparison: Chest x-ray dated July 06, 2016 Technique: Frontal and lateral views of the chest. Findings: Continued borderline cardiomegaly. Pacemaker apparatus again demonstrated. Chronic change of the lungs without focal consolidation, pleural effusion, or pneumothorax. Visualized osseous and surrounding soft tissue structures appear grossly unchanged. IMPRESSION: Stable chest x-ray without acute cardiopulmonary process demonstrated. PROCEDURE INTERPRETED AT [facility] DEPARTMENT OF RADIOLOGY Final Report Signed by: Dr Conner Sibley
--- NOTE | 2016-10-11 08:26 | Cardiology History & Physical ---
<Karina Mark E - Last Filed: 10/11/16 08:43> Assessment and Plan - Time spent with patient Time spent with patient: Greater than 30 minutes (1) Cardiac enzymes elevated Status: Chronic Assessment and plan: SEE PLAN OF CARE Current Visit: No (2) Biventricular ICD (implantable cardioverter-defibrillator) in place Status: Chronic Assessment and plan: SEE PLAN OF CARE Current Visit: No (3) CAD (coronary artery disease) Status: Chronic Assessment and plan: SEE PLAN OF CARE Current Visit: No Qualifiers: Coronary Disease-Associated Artery/Lesion type: [place] artery [place] vs. transplanted heart: [place] heart (4) HTN (hypertension) Status: Chronic Assessment and plan: SEE PLAN OF CARE Current Visit: No (5) Hyperlipidemia Status: Chronic Assessment and plan: SEE PLAN OF CARE Current Visit: No (6) Ischemic cardiomyopathy Status: Chronic Assessment and plan: SEE PLAN OF CARE Current Visit: No (7) Left bundle branch block (LBBB) Status: Chronic Assessment and plan: SEE PLAN OF CARE Current Visit: No (8) PTSD (post-traumatic stress disorder) Status: Chronic Assessment and plan: SEE PLAN OF CARE Current Visit: No (9) Paroxysmal atrial fibrillation Status: Chronic Assessment and plan: SEE PLAN OF CARE Current Visit: No (10) Sleep apnea Status: Chronic Assessment and plan: SEE PLAN OF CARE Current Visit: No History of Present Illness Chief complaint: chest pain History of present illness: PIGMENT WEIGHER: DR. JOSE CARLOS HAMMER PATIENT IS BEING SEEN IN THE ER OF [facility] Mr. Flood, 71WM, routinely followed by Dr. Hammer. [facility]. Risk factors include: age, known coronary artery disease, hypertension, hyperlipidemia, sedentary lifestyle, family history of premature coronary artery disease. He also has a history of compensated ischemic cardiomyopathy, status post ICD implantation, atrial fibrillation and sleep apnea. History of severe, complex, diffuse multivessel coronary artery disease. Most recently, July 07, 2016, patient underwent cardiac catheterization requiring PCI to the proximal LAD, POBA through side of D1 stent. He has had numerous heart catheterizations over the past year requiring PCI. He is now maintained on Aspirin, Plavix and Pletal. He reports compliance with medications. Patient presented to the ED of [facility] this morning after lower left chest pain located along the rib cage. This is been occurring for approximately 1 week and seemed to worsen this morning. He is exquisitely tender to touch, movement and palpation reproducing the discomfort. Not associated with shortness of breath. It is been reported he has been diaphoretic with this intense pain described as "sharp and tender" rates the discomfort as a 7 on a scale of 1-10. Currently chest pain-free. Patient does have ICD. During the night, while sleeping, he believes he may have received defibrillation 3 or [address] to the ED, he felt a jolt as if he was defibrillated again. Denies having shortness of breath with exertion. Troponin 0.077 and 0.075. EKG does not reveal an acute LA. Chest x-ray stable. Mid epigastric area and left upper abdominal quadrant is tender to palpation as well. No prior history of pancreatitis. reports that he falls frequently due to poor gait. We will verify patient has received aspirin, Plavix and Pletal. Will administer 1 dose of Lovenox as well. Continue cycle cardiac biomarkers. I have asked that the ICD be interrogated to determine if the patient received shock. Continue with nitrates. Will further discuss with Dr. Bledsoe and await additional recommendations. ASSESSMENT/PLAN: 1. CHEST PAIN - patient has severe, complex, diffuse multivessel coronary artery disease. The chest pain for which he sought medical advice is reproducible. However, patient's cardiac disease is quite complicated. Will continue cycle cardiac biomarkers, follow EKG. Treat with NSAIDs. Device interrogation. 2. KNOWN, SEVERE CAD - see plan of care listed above 3. HYPERTENSION - will adjust medications accordingly during hospital stay 4. DYSLIPIDEMIA - continue lipid-lowering agent 5. SLEEP DISORDER - use sleep device while hospitalized 6. S/P ICD - interrogation this morning. 7. LEFT UPPER ABDOMINAL QUAD PAIN - adding amylase and lipase. Home Medications Medication Instructions Recorded Confirmed Type Ascorbic Acid [Vitamin C] 1,000 mg PO BID 11/01/14 10/11/16 History Aspirin [Ecotrin] 81 mg PO DAILY 11/01/14 10/11/16 History Atorvastatin Calcium [Lipitor] 80 mg PO BEDTIME 11/01/14 10/11/16 History Carvedilol [Coreg] 12.5 mg PO BID 11/01/14 10/11/16 History Cholecalciferol (Vitamin D3) 2,000 unit PO BID 11/01/14 10/11/16 History [Vitamin D3] Coenzyme Q10 200 mg PO DAILY 11/01/14 10/11/16 History Cyanocobalamin (Vitamin B-12) 2,000 mcg PO BID 11/01/14 10/11/16 History [Vitamin B-12] Digoxin Tab [Lanoxin Tab] 0.25 mg PO BEDTIME 11/01/14 10/11/16 History Docusate Sodium Cap [Colace Cap] 100 mg PO BID 11/01/14 10/11/16 History Eplerenone [Inspra] 25 mg PO DAILY 11/01/14 10/11/16 History Furosemide Tab [Lasix Tab] 40 mg PO QAM 11/01/14 10/11/16 History Gabapentin 300 mg PO BEDTIME 11/01/14 10/11/16 History Iron 65 mg PO BEDTIME 11/01/14 10/11/16 History Isosorbide Mononitrate [Imdur] 60 mg PO QAM 11/01/14 10/11/16 History Magnesium 500 mg PO BEDTIME 11/01/14 10/11/16 History NIFEdipine XL TAB [Procardia Xl] 30 mg PO DAILY 11/01/14 10/11/16 History Nitroglycerin Sl Tab [Nitrostat] 0.4 mg SL Q5M PRN 11/01/14 10/11/16 History Omeprazole [Prilosec] 20 mg PO BID 11/01/14 10/11/16 History Potassium Chloride 20 meq PO BID 11/01/14 10/11/16 History Pyridoxine HCl [Vitamin B-6] 200 mg PO BEDTIME 11/01/14 10/11/16 History Ranolazine [Ranexa] 1,000 mg PO BID 11/01/14 10/11/16 History Sertraline [Zoloft] 200 mg PO QAM 11/01/14 10/11/16 History Thyroid [[place] Thyroid] 60 mg PO DAILY 11/01/14 10/11/16 History Clopidogrel [Plavix] 75 mg PO DAILY #30 tablet 01/24/15 10/11/16 Rx Cilostazol [Pletal] 100 mg PO BID #60 tablet 04/14/16 10/11/16 Rx Folic Acid Tab 0.4 mg PO QAM 10/11/16 10/11/16 History Quetiapine Fumarate [Seroquel] 75 mg PO BEDTIME 10/11/16 10/11/16 History buPROPion XL [Wellbutrin Xl] 300 mg PO QAM 10/11/16 10/11/16 History Allergies Allergy/AdvReac Type Severity Reaction Status Date / Time hydrocodone [From Lortab] Allergy RASH Verified 11/01/14 09:45 indomethacin [From Indocin] Allergy ANAPHYLAXIS Verified 11/01/14 09:45 Penicillins Allergy HIVES Verified 11/01/14 09:45 Review of systems: REVIEW OF SYSTEMS: See HPI - Constitutional Constitutional: Present: Fatigue. Absent: syncope, anorexia, night sweats - EENT Eyes: Absent: blurry vision, loss of vision, diplopia Ears: Absent: decreased hearing, ear pain, ear discharge - Cardiovascular Cardiovascular: Present: chest pain with movement and palpation. Denies dyspnea on exertion, edema, palpitations. Absent: chest pain with deep breath, claudication, - Respiratory Respiratory: Denies: ZULETA, cough. Absent: wheezing, hemoptysis, change in phlegm color - Gastrointestinal Gastrointestinal: Absent: constipation. Present: Left upper abdominal quadrant pain, mid epigastric pain to palpation. Recent diarrhea. - Genitourinary Genitourinary: Absent: difficulty urinating, dysuria, urinary hesitancy, flank pain - Musculoskeletal Musculoskeletal: Present: back pain Absent: joint swelling, muscle cramps, muscle weakness - Neurological Neurological: Present: Poor gait with frequent falls per . Absent: dizziness, hemiparesis - Psychiatric Psychiatric: Absent: anxiety, depression, difficulty concentrating - Endocrine Endocrine: Present: fatigue. Absent: cold intolerance, heat intolerance, polyuria, polyphagia, polydipsia - Hematologic/Lymphatic Hematologic/Lymphatic: Present: easy bruising. Absent: easy bleeding -Integumentary Integumentary: Absent: lesions, rashes, skin breakdown Medical,Surgical,& Family Hx - Medical History Cardio: History of: Cardiac Dysrhythmia, CAD, Hypertension, LA, Pacemaker, PVD Psychological: History of: Anxiety Disorders, Depression, Violent Behavior (PTSD ), Psychiatric Problems Neurology: No history of: Seizures HEENT: History of: Eye Problem (right cataract) Endocrine: History of: Thyroid Disorder Gastrointestinal: History of: GERD Musculoskeletal: History of: Back/Neck Problems, Degenerative Disk Disease - Surgical History Cardiac Surgeries: Sugical HX of: Cardiac Catheterization (stents), Internal Defibrillator - Family History Family History: Reports;: Family Hypertension - Social History Smoking Status: Former smoker Have you smoked in the last 12 months: No Frequency of Alcohol Use: Occasionally Type of Drug Use: None Marital Status: Lives With:: Spouse Functional capacity: independent ambulation Cardiology Physical Exam - Constitutional Vitals: Vital Signs Temp Pulse Resp BP Pulse Ox 98 F 74 16 166/86 96 10/11/16 06:42 10/11/16 06:42 10/11/16 06:42 10/11/16 06:42 10/11/16 06:24 Intake and Output 10/10/16 10/11/16 10/11/16 23:59 07:59 15:59 Other: Weight 114.759 kg Patient Weight 10/11/16 23:59 Weight 114.759 kg Exam: General: [Appears well with no apparent distress.] [Pleasant and cooperative. ] [Appears comfortable.] HEENT: [PERRL, normocephalic, atraumatic. Mucous membranes moist. No jaundice noted. Conjunctiva moist and clear, sclerae anicteric] Neck: No JVD/HJR, no thyromegaly or lymphadenopathy noted. No carotid bruit appreciated Cardiac: [Regular rate and rhythm.] [No murmur rub or gallop.] PMI is nondisplaced. Lungs: [Clear to auscultation without accessory muscle use to assist the respiratory pattern.] Not requiring oxygen Abdomen: Soft, bowel sounds normoactive. Nontender and nondistended. No abdominal bruit or thrill noted. No masses noted. Musculoskeletal: No fluid collection. Decreased range of motion is noted. Extremities: No clubbing, cyanosis noted. [ No edema noted.] Upper extremity pulses 2+. Lower extremity pulses 2+. Capillary refill less than 3 seconds. Skin: No unusual lesions or rashes. No skin breakdown appreciated. Neuro: Awake, alert and oriented 3. Moves all extremities well without hemiparesis or paralysis. No essential tremor is appreciated. Result/EKG - Labs CBC & BMP: 10/11/16 06:36 10/11/16 06:36 Lab Results: I have reviewed the past 24 hour labs Labs: Laboratory Results - last 24 hr 07/31/17 07/31/17 07/31/17 06:36 06:36 06:36 WBC RBC Hgb Hct MCV MCH MCHC RDW Plt Count MPV Neut % (Auto) Lymph % (Auto) [place] % (Auto) Eos % (Auto) Baso % (Auto) Neut # (Auto) Lymph # (Auto) [place] # (Auto) Eos # (Auto) Baso # (Auto) Immature Gran % Nucleated RBC % Immature Gran # Nucleated RBCs # Immature Plt Fraction INR 1.0 PT Patient/Control Mix 10.4 Circ Anticoag PTT Sodium 142 Potassium 3.6 Chloride 107 Carbon Dioxide 28 Anion Gap 10.6 BUN 14 Creatinine 0.90 GFR Calculation 121 BUN/Creatinine Ratio 15.00 Glucose 128 H Calculated Osmolality 285.1 Calcium 9.2 Total Bilirubin 0.60 AST 21 ALT 29 Alkaline Phosphatase 81 Total Creatine Kinase 54 CK-MB (CK-2) 2.2 Troponin I 0.077 H B-Natriuretic Peptide 159 H Total Protein 6.8 Albumin 3.4 Globulin 3.4 Albumin/Globulin Ratio 1.0 L 10/11/16 10/11/16 10/11/16 06:36 06:36 06:36 WBC 6.7 RBC 4.16 Hgb 13.8 L Hct 38.2 L MCV 91.8 MCH 33 MCHC 36.1 H RDW 12.8 Plt Count 173 MPV 9.3 L Neut % (Auto) 66.8 Lymph % (Auto) 21.4 Grant % (Auto) 7.6 Eos % (Auto) 3.4 Baso % (Auto) 0.4 Neut # (Auto) 4.4 Lymph # (Auto) 1.4 Grant # (Auto) 0.5 Eos # (Auto) 0.2 Baso # (Auto) 0.0 Immature Gran % 0.4 Nucleated RBC % 0.0 Immature Gran # 0.03 Nucleated RBCs # 0.00 Immature Plt Fraction 0.0 INR PT Patient/Control Mix Circ Anticoag PTT 28.5 D Sodium Potassium Chloride Carbon Dioxide Anion Gap BUN Creatinine GFR Calculation BUN/Creatinine Ratio Glucose Calculated Osmolality Calcium Total Bilirubin AST ALT Alkaline Phosphatase Total Creatine Kinase CK-MB (CK-2) Troponin I 0.075 H B-Natriuretic Peptide Total Protein Albumin Globulin Albumin/Globulin Ratio - Diagnostic Findings Procedure: Chest x-ray: report reviewed by me - EKG EKG results: interpreted by va EKG shows: sinus rhythm (Pacing) <Caitlyn Bledsoe - Last Filed: 10/11/16 14:25> History of Present Illness History of present illness: I have personally interviewed and evaluated the patient, reviewed the chart and discussed medical decision-making with Practitioner Deedee. I have read this note and agree with her documentation here in. Patient's cardiac biomarkers have remain elevated. This afternoon he developed a secondary chest pain that is similar to his usual angina, and he has required PCI after episodes of this kind of chest pain. This was a central chest pressure that radiates into his left arm with some associated shortness of breath and tingling in the left arm. This has been waxing and waning. He also continues to have the secondary "chest pain" which is really left flank pain and left lower rib cage pain. This however is a separate entity. Given his complex cardiac history, mildly abnormal cardiac biomarkers, we will refer for cardiac catheterization. Cardiology Physical Exam - Constitutional Vitals: Vital Signs Temp Pulse Resp BP Pulse Ox 97.9 F 73 20 158/85 96 10/11/16 12:00 10/11/16 12:00 10/11/16 12:00 10/11/16 12:00 10/11/16 12:00 Intake and Output 10/10/16 10/11/16 10/11/16 23:59 07:59 15:59 Other: Weight 114.759 kg 112.264 kg Patient Weight 10/11/16 23:59 Weight 112.264 kg Result/EKG - Labs CBC & BMP: 10/11/16 06:36 10/11/16 06:36 Labs: Laboratory Results - last 24 hr 10/11/16 10/11/16 10/11/16 06:36 06:36 06:36 WBC RBC Hgb Hct MCV MCH MCHC RDW Plt Count MPV Neut % (Auto) Lymph % (Auto) [place] % (Auto) Eos % (Auto) Baso % (Auto) Neut # (Auto) Lymph # (Auto) Grant # (Auto) Eos # (Auto) Baso # (Auto) Immature Gran % Nucleated RBC % Immature Gran # Nucleated RBCs # Immature Plt Fraction INR 1.0 PT Patient/Control Mix 10.4 Circ Anticoag PTT Sodium 142 Potassium 3.6 Chloride 107 Carbon Dioxide 28 Anion Gap 10.6 BUN 14 Creatinine 0.90 GFR Calculation 121 BUN/Creatinine Ratio 15.00 Glucose 128 H Calculated Osmolality 285.1 Calcium 9.2 Total Bilirubin 0.60 AST 21 ALT 29 Alkaline Phosphatase 81 Total Creatine Kinase 54 CK-MB (CK-2) 2.2 Troponin I 0.077 H B-Natriuretic Peptide 159 H Total Protein 6.8 Albumin 3.4 Globulin 3.4 Albumin/Globulin Ratio 1.0 L Amylase Lipase TSH 3rd Generation 10/11/16 10/11/16 10/11/16 06:36 06:36 06:36 WBC 6.7 RBC 4.16 Hgb 13.8 L Hct 38.2 L MCV 91.8 MCH 33 MCHC 36.1 H RDW 12.8 Plt Count 173 MPV 9.3 L Neut % (Auto) 66.8 Lymph % (Auto) 21.4 Grant % (Auto) 7.6 Eos % (Auto) 3.4 Baso % (Auto) 0.4 Neut # (Auto) 4.4 Lymph # (Auto) 1.4 Grant # (Auto) 0.5 Eos # (Auto) 0.2 Baso # (Auto) 0.0 Immature Gran % 0.4 Nucleated RBC % 0.0 Immature Gran # 0.03 Nucleated RBCs # 0.00 Immature Plt Fraction 0.0 INR PT Patient/Control Mix Circ Anticoag PTT 28.5 D Sodium Potassium Chloride Carbon Dioxide Anion Gap BUN Creatinine GFR Calculation BUN/Creatinine Ratio Glucose Calculated Osmolality Calcium Total Bilirubin AST ALT Alkaline Phosphatase Total Creatine Kinase CK-MB (CK-2) Troponin I 0.075 H B-Natriuretic Peptide Total Protein Albumin Globulin Albumin/Globulin Ratio Amylase Lipase TSH 3rd Generation 10/11/16 10/11/16 10/11/16 06:36 06:36 11:44 WBC RBC Hgb Hct MCV MCH MCHC RDW Plt Count MPV Neut % (Auto) Lymph % (Auto) [place] % (Auto) Eos % (Auto) Baso % (Auto) Neut # (Auto) Lymph # (Auto) Grant # (Auto) Eos # (Auto) Baso # (Auto) Immature Gran % Nucleated RBC % Immature Gran # Nucleated RBCs # Immature Plt Fraction INR PT Patient/Control Mix Circ Anticoag PTT Sodium Potassium Chloride Carbon Dioxide Anion Gap BUN Creatinine GFR Calculation BUN/Creatinine Ratio Glucose Calculated Osmolality Calcium Total Bilirubin AST ALT Alkaline Phosphatase Total Creatine Kinase CK-MB (CK-2) Troponin I 0.064 H B-Natriuretic Peptide Total Protein Albumin Globulin Albumin/Globulin Ratio Amylase 20 L Lipase 92.0 TSH 3rd Generation 1.250
[2016-10-11] MEDS ORDERED: ENOXAPARIN 120 MG/0.8 ML SYRINGE SUBCUT STA (08:52)
[2016-10-11] MEDS ORDERED: MAGNESIUM SULF RIDER 4 GM in PREMIX 1 EACH IV PRN (08:54)
[2016-10-11] MEDS ORDERED: BISACODYL 5 MG TABLET PO PRN (08:54)
[2016-10-11] MEDS ORDERED: ACETAMINOPHEN 325 MG TABLET PO PRN (08:54)
[2016-10-11] MEDS ORDERED: MORPHINE 2 MG/1 ML SYRINGE IV PRN (08:54)
[2016-10-11] MEDS ORDERED: MAGNESIUM SULF RIDER 2 GM in PREMIX 1 EACH IV PRN ×2 (08:54→16:17)
[2016-10-11] MEDS ORDERED: PANTOPRAZOLE 40 MG TABLET PO SCH (09:00)
[2016-10-11] MEDS ORDERED: ISOSORBIDE MONONITRATE 60 MG TABLET PO SCH (09:00)
[2016-10-11] MEDS ORDERED: KETOROLAC 30 MG/1 ML VIAL IV ONE (12:32)
[2016-10-11] MEDS: FERROUS SULFATE 325 MG TABLET PO SCH (12:44)
[2016-10-11] MEDS: DOCUSATE SODIUM 100 MG CAPSULE PO SCH ×2 (12:44→22:19)
[2016-10-11] MEDS: FOLIC ACID 0.4 MG TABLET PO SCH ×2 (12:45→22:12)
[2016-10-11] MEDS: SERTRALINE 100 MG TABLET PO SCH (12:45)
[2016-10-11] MEDS: POTASSIUM CHLORIDE 20 MEQ TABLET PO SCH ×2 (12:45→22:12)
[2016-10-11] MEDS: THYROID 60 MG TABLET PO SCH (12:46)
[2016-10-11] MEDS: FUROSEMIDE 40 MG TABLET PO SCH (12:46)
[2016-10-11] MEDS: CLOPIDOGREL 75 MG TABLET PO SCH (12:46)
[2016-10-11] MEDS: RANOLAZINE 500 MG TABLET PO SCH ×2 (12:46→22:11)
[2016-10-11] MEDS: CARVEDILOL 12.5 MG TABLET PO SCH ×2 (12:46→22:19)
[2016-10-11] MEDS: ASPIRIN EC 81 MG TABLET PO SCH (12:46)
[2016-10-11] MEDS: EPLERENONE 25 MG TABLET PO SCH (12:47)
[2016-10-11] MEDS: PANTOPRAZOLE 40 MG TABLET PO SCH ×2 (12:47→22:12)
[2016-10-11] MEDS: CILOSTAZOL 100 MG TABLET PO SCH ×2 (12:47→22:11)
--- NOTE | 2016-10-11 13:34 | EKG Report ---
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
[2016-10-11] MEDS: NITROGLYCERIN SL 0.4 MG TABLET SL PRN ×2 (13:40→13:46)
--- NOTE | 2016-10-11 13:45 | EKG Report ---
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
[2016-10-11] MEDS ORDERED: ENOXAPARIN 120 MG/0.8 ML SYRINGE SUBCUT ONE (13:51)
[2016-10-11] MEDS: NITROGLYCERIN 2% OINT 1 INCH/GM PACK TOP SCH ×2 (13:52→17:22)
[2016-10-11] MEDS ORDERED: DIAZEPAM 5 MG TABLET PO ONE (16:17)
[2016-10-11] MEDS ORDERED: POTASSIUM CHLORIDE RIDER 10 MEQ in PREMIX 1 EACH IV PRN (16:17)
[2016-10-11] MEDS ORDERED: diphenhydrAMINE CAP 25 MG CAPSULE PO ONE (16:17)
[2016-10-11 17:22] LABS: Troponin I Only 0.067 NG/ML (0.00-0.045)
[2016-10-11] MEDS: SODIUM CHLORIDE 0.45% 1,000 ML IV SCH (17:22)
[2016-10-11] MEDS: DIGOXIN 0.25 MG TABLET PO SCH (22:10)
[2016-10-11] MEDS: PYRIDOXINE 100 MG TABLET PO SCH (22:11)
[2016-10-11] MEDS: ATORVASTATIN 80 MG TABLET PO SCH (22:12)
[2016-10-11] MEDS: MAGNESIUM GLUCONATE 500 MG TABLET PO SCH (22:12)
[2016-10-11] MEDS: QUEtiapine 25 MG TABLET PO SCH (22:19)
[2016-10-11] MEDS: GABAPENTIN 300 MG CAPSULE PO SCH (22:25)
[2016-10-12] MEDS: NITROGLYCERIN SL 0.4 MG TABLET SL PRN ×3 (00:38→01:27)
[2016-10-12] MEDS ORDERED: KETOROLAC 30 MG/1 ML VIAL IV ONE (01:00)
[2016-10-12] MEDS: NITROGLYCERIN 2% OINT 1 INCH/GM PACK TOP SCH ×4 (01:21→19:05)
[2016-10-12 01:27] LABS: Basophils % 0.7 % (0.0-0.8); Eosinophils # 0.2 10*3/uL (0.0-0.87); Eosinophils % 2.9 % (0.00-10.9); Hematocrit 37.1 VOL% (42.0-52.0); Immature Granulocytes % 0.5 %; Immature Granulocytes Absolute 0.03 #; Lymphocytes # 1.6 10*3/uL (1.4-4.0); Lymphocytes % 27.6 % (21.2-54.2); Mean Corpuscular Hemoglobin 33 PG (27-34); Mean Corpuscular Volume 93.2 FL (87-102); Mean Platelet Volume 9.7 FL (9.6-12.0); Monocytes # 0.5 10*3/uL (0.11-0.8); Monocytes % 8.2 % (1.7-12.7); Neutrophils # 3.5 10*3/uL (1.4-7.4); Neutrophils % 60.1 % (38.7-73.9); Platelet Count 175 T/CUMM (130-400); Red Blood Count 3.98 MC/CUMM (3.8-5.5); Red Cell Distribution Width 12.8 % (9.3-17.3); White Blood Count 5.9 T/CUMM (4-12)
[2016-10-12 01:51] LABS: Troponin I Only 0.068 NG/ML (0.00-0.045)
[2016-10-12 02:01] LABS: Bilirubin,Total 1.1 MG/DL (0.2-1.0); Calcium 8.6 MG/DL (8.5-10.1); Magnesium 2.3 MG/DL (1.8-2.4); Potassium 4.1 MMOL/L (3.5-5.1); Risk Ratio 3.43; VLDL CHOLESTEROL 31.4 MG/DL
[2016-10-12] MEDS: SODIUM CHLORIDE 0.45% 1,000 ML IV SCH (06:41)
--- NOTE | 2016-10-12 09:00 | EKG Report ---
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
[2016-10-12] MEDS: traMADol 50 MG TABLET PO PRN ×2 (09:03→15:49)
[2016-10-12] MEDS: POTASSIUM CHLORIDE 20 MEQ TABLET PO SCH ×2 (09:55→21:46)
[2016-10-12] MEDS: CLOPIDOGREL 75 MG TABLET PO SCH (09:55)
[2016-10-12] MEDS: CARVEDILOL 12.5 MG TABLET PO SCH ×2 (09:55→21:46)
[2016-10-12] MEDS: ASPIRIN EC 81 MG TABLET PO SCH (09:55)
[2016-10-12] MEDS: CILOSTAZOL 100 MG TABLET PO SCH ×2 (09:55→21:44)
[2016-10-12] MEDS: PANTOPRAZOLE 40 MG TABLET PO SCH ×2 (09:56→21:48)
[2016-10-12] MEDS ORDERED: LIDOCAINE 1%/EPI INJ 20 ML VIAL ONE ×2 (10:02→10:05)
[2016-10-12] MEDS ORDERED: HEPARIN/NACL 0.9% 2 UNITS/ML 1,000 ML IV ONE (10:05)
[2016-10-12] MEDS ORDERED: MIDAZOLAM 2 MG/2 ML VIAL ONE ×2 (10:05→10:34)
[2016-10-12] MEDS ORDERED: fentaNYL 100 MCG/2 ML VIAL ONE (10:05)
--- NOTE | 2016-10-12 10:18 | History and Physical Update ---
Sedation H&P Update - History and Physical H&P was reviewed, the patient examined and there: are no changes in the patients condition since last H&P was completed. - Sedation Plan for Sedation: moderate Patient Consent: Procedure disscussed with patient and patinet has consented., Risks and benefits were discussed with patient,including infection,, bleeding, injury to surrounding structures, seizure, temporary nerve, Patient understands and accepts potential risks/benefits and agrees to, proceed. ASA Class: III
[2016-10-12] MEDS ORDERED: diphenhydrAMINE CAP 25 MG CAPSULE PO ONE (10:30)
[2016-10-12] MEDS ORDERED: DIAZEPAM 5 MG TABLET PO ONE (10:30)
[2016-10-12] MEDS ORDERED: HEPARIN 5,000 UNIT/1 ML VIAL ONE (10:34)
[2016-10-12] MEDS ORDERED: TIROFIBAN 5,000 MCG/100 ML PREMIX IV ONE (10:39)
[2016-10-12] MEDS ORDERED: TIROFIBAN 5,000 MCG/100 ML PREMIX IV SCH (10:47)
[2016-10-12] MEDS ORDERED: CLOPIDOGREL 300 MG TABLET ONE (10:50)
--- NOTE | 2016-10-12 11:20 | Cardiac Catheterization ---
Date of Procedure:: 10/12/16 Pre-op Diagnosis: Patient with history of multiple stents now with anginal chest pain for evaluation Post-op diagnosis: same Procedure: Clinical summary: This is a 71-year-old man who has a history of cardiomyopathy had multiple stents placed to his LAD now with recurring anginal chest pain. He is for diagnostic evaluation intervention if indicated Procedure performed: 1: Left heart catheterization 2: Coronary angiography 3: Left ventriculography 4: Balloon angioplasty to focal restenotic segment of the prior stented site with a 2.5 x 8 mm arias trek balloon 5: Percutaneous coronary intervention with a 2.25 x 12 mm ZiJelastic Alpine drug- eluting stent to the distal portion of the prior stented segment with a good angiographic result 6: Right femoral sheath angiography 7: Minx closure right femoral arteriotomy site Description procedure: After obtaining informed consent the Origination Specialist of the right groin was prepped and draped in usual sterile manner. Using intravenous sedation local anesthesia needle was inserted right femoral artery without difficulty and a 6 Albanian sheath was positioned without difficulty. A Supriay left diagnostic catheter was advanced over guidewire under fluoroscopic control to the ascending aorta where the left main coronary was engaged. Multiple angiograms of the left coronary system were undertaken multiple views. After adequate angiograms of the left coronary artery were obtained this catheter was withdrawn and in a.m. Frank right coronary catheter was advanced over guidewire under fluoroscopic control deviation aorta where a angiograms of the right coronary was undertaken in multiple views. After adequate angiograms of the right coronary obtained this catheter was withdrawn and a pigtail ventriculographic catheter was advanced over guidewire under fluoroscopic control to the ascending aorta and then across the aortic valve where ventriculograms obtained in the MERAZ projection. Intraventricular pressures were measured before and after ventriculography. This catheter was then pulled back from the ventricle to the aorta under hemodynamic monitoring and removed. At this point we elected to proceed with percutaneous intervention of the proximal LAD and at the distal stented area. An EBU 4.0 catheter was advanced over guidewire under fluoroscopic control to the ascending aorta with the left main coronary was engaged. An 014 BMW wire was advanced to the distal LAD and a 2.5 x 8 mm arias trek balloon was advanced to the proximal area of stenosis and inflated to a maximum 12 dylon. There was good resolution of the prior restenotic segment and the balloon was then removed. There was a roughly 90% stenosis noted at the distal stent margin and this was treated with a two-point 2 5 x 12 mm Zi[employer]obead [employer]ine stent advanced to the distal stent margin deployed to a maximum 12 dylon. There was good resolution of the stenosis. There was FRANKI grade III flow down the vessel noted at the end of the procedure. At this point balloons and wires were removed from the guide. The guide was then pulled back and removed from the sheath. Patient underwent right femoral arterial sheath angiography which demonstrated anatomy appropriate for minx closure. This was performed without difficulty. Good hemostasis was obtained. The patient was transferred to his feng having suffered no significant immediate complications. Hemodynamics: Please see coming data sheet Coronary angiography Left coronary artery: Left main coronary developed and free of significant obstructing lesions. The circumflex is a large nondominant vessel that possesses no significant lesions through its course. The branches of the circumflex likewise are free of significant obstructing lesions. There is a large ramus branch which is free of significant obstructing lesions. Left anterior descending coronary is a large vessel extends around the apex of ventricle. There is intracoronary stent noted in the proximal one third of the LAD. There is a focal area of 90% stenosis noted in the mid segment of the stented area which is consistent with in-stent restenosis. The distal margin of the stented segment is an area of probably 90% stenosis noted as well. The distal vessel is diffusely diseased and fairly small but no significant focal stenosis can be identified. There is a large diagonal which arises from the stented segment which appears to be free of significant obstructing lesions. There is filling of the distal right coronary via collaterals from the circumflex and well as from the septal perforators of the LAD. Right coronary artery: Right coronary is completely occluded in its proximal portion. Filling of the distal right is noted only very faintly antegrade. Majority of the filling of the right coronary distally is noted from collaterals of the circumflex and of the LAD. Left ventriculography: After injection of contrast left ventricle is known to be enlarged with diffuse severe left ventricular hypokinesis. Overall ejection fraction measures in the 35-40% range. Mitral and aortic structures appear normal by ventriculography. Percutaneous coronary intervention: After the above-described procedure lesion went from roughly 90% flow-limiting to less than 0% flow-limiting after balloon angioplasty of the in-stent restenotic segment. The distal stented segment appeared to be widely patent with FRANKI grade III flow down the vessel noted after stent deployment distally. Right femoral sheath angiography: There is a high bifurcation and the sheath appears to enter right at the bifurcation of the profunda and the deep femoral. This appears to be appropriate for minx closure. No significant disease of the distal iliac, common femoral or bifurcation can be noted. Conclusions: 1: Successful percutaneous intervention of the restenotic segment of the prior stented proximal LAD with a good angiographic result 2: Percutaneous intervention of the distal stented segment with a 2.25 x 12 mm Zions drug-eluting stent with a good angiographic result 3: Total occlusion of the right coronary filling via collaterals from the circumflex and septal perforators of the LAD 4: Ischemic cardiomyopathy ejection fraction in the 35-40% range 5: Minx closure right femoral arteriotomy site Discussion and recommendations: Patient presents with precordial discomfort known history coronary disease. He is undergone evaluation which demonstrates a restenosis at the prior stented LAD segment. He also had not had what appears to be progression of the disease at the distal margin of the stent which is been successfully stented. Hopefully this will result in improvement in his symptoms. He will be maintained on appropriate antiplatelet and antithrombotic medications. Surgeon / Physician: Buddy Arciniega Estimated blood loss: minimal Specimens: none sent Condition: stable - Medications / Follow-up
[2016-10-12] MEDS ORDERED: ONDANSETRON 4 MG/2 ML VIAL IV PRN (11:21)
[2016-10-12] MEDS: DOCUSATE SODIUM 100 MG CAPSULE PO SCH ×2 (12:24→21:49)
[2016-10-12] MEDS: THYROID 60 MG TABLET PO SCH (12:25)
[2016-10-12] MEDS: SERTRALINE 100 MG TABLET PO SCH (12:25)
[2016-10-12] MEDS: RANOLAZINE 500 MG TABLET PO SCH ×2 (12:25→21:46)
[2016-10-12] MEDS: FOLIC ACID 0.4 MG TABLET PO SCH ×2 (12:26→21:46)
[2016-10-12] MEDS: FUROSEMIDE 40 MG TABLET PO SCH (12:26)
[2016-10-12] MEDS: EPLERENONE 25 MG TABLET PO SCH (12:26)
--- NOTE | 2016-10-12 15:30 | EKG Report ---
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
[2016-10-12] MEDS: PYRIDOXINE 100 MG TABLET PO SCH (21:44)
[2016-10-12] MEDS: DIGOXIN 0.25 MG TABLET PO SCH (21:45)
[2016-10-12] MEDS: GABAPENTIN 300 MG CAPSULE PO SCH (21:46)
[2016-10-12] MEDS: MAGNESIUM GLUCONATE 500 MG TABLET PO SCH (21:48)
[2016-10-12] MEDS: QUEtiapine 25 MG TABLET PO SCH (21:48)
[2016-10-13] MEDS: SODIUM CHLORIDE 0.45% 1,000 ML IV SCH ×2 (00:43→13:04)
[2016-10-13] MEDS: ATORVASTATIN 80 MG TABLET PO SCH (00:43)
[2016-10-13] MEDS: NITROGLYCERIN 2% OINT 1 INCH/GM PACK TOP SCH ×3 (00:44→13:04)
[2016-10-13 05:18] LABS: Basophils % 0.4 % (0.0-0.8); Eosinophils # 0.2 10*3/uL (0.0-0.87); Eosinophils % 3.2 % (0.00-10.9); Hematocrit 36.8 VOL% (42.0-52.0); Hemoglobin 12.9 GM/DL (14.0-18.0); Immature Granulocytes % 0.3 %; Immature Granulocytes Absolute 0.02 #; Lymphocytes # 1.1 10*3/uL (1.4-4.0); Lymphocytes % 15.2 % (21.2-54.2); Mean Corpuscular HGB Conc 35.1 GM/DL (32-36); Mean Corpuscular Hemoglobin 33 PG (27-34); Mean Corpuscular Volume 93.4 FL (87-102); Mean Platelet Volume 9.6 FL (9.6-12.0); Monocytes # 0.6 10*3/uL (0.11-0.8); Monocytes % 9.1 % (1.7-12.7); Neutrophils % 71.8 % (38.7-73.9); Platelet Count 162 T/CUMM (130-400); Red Blood Count 3.94 MC/CUMM (3.8-5.5); Red Cell Distribution Width 12.5 % (9.3-17.3)
[2016-10-13 06:06] LABS: Troponin I Only 0.209 NG/ML (0.00-0.045)
[2016-10-13 06:14] LABS: Calcium 8.1 MG/DL (8.5-10.1); Magnesium 2.2 MG/DL (1.8-2.4); Osmolality,Calculated 280.3 MOS/KG (273-304); Potassium 3.9 MMOL/L (3.5-5.1)
--- NOTE | 2016-10-13 07:50 | EKG Report ---
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
[2016-10-13] MEDS: FERROUS SULFATE 325 MG TABLET PO SCH (09:57)
[2016-10-13] MEDS: CILOSTAZOL 100 MG TABLET PO SCH (09:57)
[2016-10-13] MEDS: SERTRALINE 100 MG TABLET PO SCH (09:57)
[2016-10-13] MEDS: FUROSEMIDE 40 MG TABLET PO SCH (09:58)
[2016-10-13] MEDS: RANOLAZINE 500 MG TABLET PO SCH (09:58)
[2016-10-13] MEDS: CARVEDILOL 12.5 MG TABLET PO SCH (09:58)
[2016-10-13] MEDS: DOCUSATE SODIUM 100 MG CAPSULE PO SCH (09:58)
[2016-10-13] MEDS: FOLIC ACID 0.4 MG TABLET PO SCH (09:58)
[2016-10-13] MEDS: PANTOPRAZOLE 40 MG TABLET PO SCH (09:58)
[2016-10-13] MEDS: THYROID 60 MG TABLET PO SCH (09:58)
[2016-10-13] MEDS: ASPIRIN EC 81 MG TABLET PO SCH (09:59)
[2016-10-13] MEDS: EPLERENONE 25 MG TABLET PO SCH (10:01)
[2016-10-13] MEDS: CLOPIDOGREL 75 MG TABLET PO SCH (10:01)
[2016-10-13] MEDS: POTASSIUM CHLORIDE 20 MEQ TABLET PO SCH (10:01)
[2016-10-13 12:08] VITALS: BP 122/56
--- NOTE | 2016-10-13 12:18 | Discharge Summary ---
Sadiq Walter Vanessa, RN, am scribing for, and in the presence of, Caitlyn Bledsoe MD 12:16. Hospital Course - Hospital Course Hospital Course: PRIMARY WIRE MACHINE CUTTER: DR. HAMMER DISCHARGE SUMMARY: The patient was admitted with chest pain syndrome. He has a history of coronary artery disease, ischemic cardiomyopathy, and recent PCI to his LAD and first diagonal arteries. He was readmitted again with chest pain which was initially atypical, but evolved into more of his typical angina the following day. Artur biomarkers were very mildly elevated. He underwent cardiac catheterization which revealed restenosis of the previously stented segment as well as a distal stent edge stenosis and underwent PCI with stenting to these areas. Please see the operative report for full details. His postoperative course was otherwise uneventful and on the day of discharge he is without complaints. He is being discharged home in stable condition. - Time spent with patient Time with patient DS: Greater than 30 minutes Diagnosis - Discharge Diagnosis (1) Biventricular ICD (implantable cardioverter-defibrillator) in place Status: Chronic (2) Cardiac enzymes elevated Status: Chronic (3) HTN (hypertension) Status: Chronic (4) Hyperlipidemia Status: Chronic (5) Hypothyroidism Status: Chronic (6) Ischemic cardiomyopathy Status: Chronic (7) Left bundle branch block (LBBB) Status: Chronic (8) PTSD (post-traumatic stress disorder) Status: Chronic (9) Paroxysmal atrial fibrillation Status: Chronic (10) Sleep apnea Status: Chronic Specialty Discharge - Follow Up or Referrals Follow up with: Jose Hammer MD [Primary Care Provider] - 1 Week (Follow up appointment with Dr. Hammer in 1 week with EKG, CBC, BMP, Mg+.) Discharge Plan - Discharge Data Disposition: Disch To Home/Self Care Condition at Discharge: Stable Discharge Diet: advance to your usual diet, heart healthy, low fat, low cholesterol, low salt diet Activity: no lifting (For 1 week), other (routine post cath instructions) Hygiene: may shower, keep area(s) dry Weight Bearing at Discharge: full weight bearing Driving: not until seen by doctor Contact your physician if you experience:: fever over 101, Difficulty voiding, Redness or swelling, Nausea/Vomiting, Shortness of breath, Bleeding, pain uncontrolled by pain medications - Discharge Medications Continue Nitroglycerin Sl Tab [Nitrostat] 0.4 mg SL Q5M PRN PRN Reason: Chest Pain Ascorbic Acid [Vitamin C] 1,000 mg PO BID Pyridoxine HCl [Vitamin B-6] 200 mg PO BEDTIME Magnesium 500 mg PO BEDTIME Cyanocobalamin (Vitamin B-12) [Vitamin B-12] 2,000 mcg PO BID Coenzyme Q10 200 mg PO DAILY Cholecalciferol (Vitamin D3) [Vitamin D3] 2,000 unit PO BID Gabapentin 300 mg PO BEDTIME Docusate Sodium Cap [Colace Cap] 100 mg PO BID Potassium Chloride 20 meq PO BID Omeprazole [Prilosec] 20 mg PO BID Sertraline [Zoloft] 200 mg PO QAM Digoxin Tab [Lanoxin Tab] 0.25 mg PO BEDTIME Atorvastatin Calcium [Lipitor] 80 mg PO BEDTIME Carvedilol [Coreg] 12.5 mg PO BID Ranolazine [Ranexa] 1,000 mg PO BID Eplerenone [Inspra] 25 mg PO DAILY NIFEdipine XL TAB [Procardia Xl] 30 mg PO DAILY Aspirin [Ecotrin] 81 mg PO DAILY Isosorbide Mononitrate [Imdur] 60 mg PO QAM Iron 65 mg PO BEDTIME Thyroid [[place] Thyroid] 60 mg PO DAILY Furosemide Tab [Lasix Tab] 40 mg PO QAM Clopidogrel [Plavix] 75 mg PO DAILY #30 tablet Quetiapine Fumarate [Seroquel] 75 mg PO BEDTIME buPROPion XL [Wellbutrin Xl] 300 mg PO QAM Cilostazol [Pletal] 100 mg PO BID #60 tablet Folic Acid Tab 0.4 mg PO QAM - Follow Up or Referral Follow Up: Jose Hammer MD [Primary Care Provider] - 1 Week (Follow up appointment with Dr. Hammer in 1 week with EKG, CBC, BMP, Mg+.) - Forms/Instructions Instructions: Left Heart Catheterization (DC), Heart Healthy Diet (GEN), Coronary Intravascular Stent Placement (DC) Exam - Constitutional Vitals: Period Temp Pulse Resp BP Sys/Franco Pulse Ox Last 24 Hr 97.7 F-98.3 F 70-80 17-20 125-175/72-92 89-99 Exam: General: Appears well with no apparent distress. Pleasant and cooperative. HEENT: PERRL, normocephalic, atraumatic. Mucous membranes moist. No jaundice noted. Conjunctiva moist and clear, sclerae anicteric Neck: No JVD/HJR, no thyromegaly or lymphadenopathy noted. No carotid bruit appreciated Cardiac: Regular rate and rhythm. No murmur rub or gallop. PMI is nondisplaced. Lungs: Clear to auscultation without accessory muscle use to assist the respiratory pattern. Not requiring oxygen Abdomen: Soft, bowel sounds normoactive. Nontender and nondistended. No abdominal bruit or thrill noted. No masses noted. Musculoskeletal: No fluid collection. Decreased range of motion is noted. Extremities: No clubbing, cyanosis noted. No edema noted. Upper extremity pulses 2+. Capillary refill less than 3 seconds. RFA cath site area is soft without bruise, hematoma, or femoral bruit. Distal pulses are present and palpable bilaterally. Skin: No unusual lesions or rashes. No skin breakdown appreciated. Skin is warm, dry, and intact. Neuro: Awake, alert and oriented 3. Moves all extremities well without hemiparesis or paralysis. No essential tremor is appreciated. Patient is not anxious or depressed. Discharge Results Labs on day of discharge: Labs from last 24 hours 10/13/16 10/13/16 10/13/16 03:50 03:50 03:50 WBC 7.0 RBC 3.94 Hgb 12.9 L Hct 36.8 L MCV 93.4 MCH 33 MCHC 35.1 RDW 12.5 Plt Count 162 MPV 9.6 Neut % (Auto) 71.8 Lymph % (Auto) 15.2 L O'Brien % (Auto) 9.1 Eos % (Auto) 3.2 Baso % (Auto) 0.4 Neut # (Auto) 5.0 Lymph # (Auto) 1.1 L O'Brien # (Auto) 0.6 Eos # (Auto) 0.2 Baso # (Auto) 0.0 Immature Gran % 0.3 Nucleated RBC % 0.0 Immature Gran # 0.02 Nucleated RBCs # 0.00 Immature Plt Fraction 0.0 Sodium 141 Potassium 3.9 Chloride 105 Carbon Dioxide 31 Anion Gap 8.9 BUN 12 Creatinine 0.90 GFR Calculation 120 BUN/Creatinine Ratio 13.00 Glucose 96 Calculated Osmolality 280.3 Calcium 8.1 L Magnesium 2.2 Total Creatine Kinase 43 CK-MB (CK-2) 1.9 Troponin I 0.209 H D 10/12/16 10/12/16 19:48 11:50 WBC RBC Hgb Hct MCV MCH MCHC RDW Plt Count MPV Neut % (Auto) Lymph % (Auto) O'Brien % (Auto) Eos % (Auto) Baso % (Auto) Neut # (Auto) Lymph # (Auto) O'Brien # (Auto) Eos # (Auto) Baso # (Auto) Immature Gran % Nucleated RBC % Immature Gran # Nucleated RBCs # Immature Plt Fraction Sodium Potassium Chloride Carbon Dioxide Anion Gap BUN Creatinine GFR Calculation BUN/Creatinine Ratio Glucose Calculated Osmolality Calcium Magnesium Total Creatine Kinase CK-MB (CK-2) Troponin I 0.119 H D 0.054 H D DS: Provider Primary care physician: Caitlyn Bledsoe MD Consults: 10/12/16 11:21 Consult to Cardiac Rehabilitation [CONS] Routine Reason for Cardiac Rehabilitation: Risk Factor Modification Discharging clinician: Caitlyn Bledsoe MD Expected date of discharge: 10/13/16 Rakan Walter Jennifer, MD, personally performed the services described in this documentation, ascribed by Kasandra Babcock, RN in my presence, and it is both accurate and complete 218 .
== END 2016-10-13 13:15 | disposition home or self-care (01) ==
LOC: N.ED 06:20 → N.EDINP 06:20 → N.TELEN 12:01
PROVIDERS: ADMIT Internal Medicine Cardiovascular Disease; ATTEND Internal Medicine Cardiovascular Disease
PROC: CLCCHCL (ICD-10-PCS; 2016-10-12 12:15)

== ENCOUNTER 2017-07-12 16:54 | Inpatient (IN) ==
[2017-07-12] MEDS ORDERED: MAGNESIUM SULF RIDER 4 GM in PREMIX 1 EACH IV PRN (19:14)
[2017-07-12] MEDS ORDERED: POTASSIUM CHLORIDE 20 MEQ TABLET PO PRN (19:14)
[2017-07-12] MEDS ORDERED: ONDANSETRON 4 MG/2 ML VIAL IV PRN (19:14)
[2017-07-12] MEDS ORDERED: ACETAMINOPHEN 325 MG TABLET PO PRN (19:14)
[2017-07-12] MEDS ORDERED: POTASSIUM CHLORIDE 20 MEQ/15 ML UDCUP PER TUBE PRN (19:14)
[2017-07-12] MEDS ORDERED: MAGNESIUM SULF RIDER 2 GM in PREMIX 1 EACH IV PRN (19:14)
[2017-07-12] MEDS ORDERED: NITROGLYCERIN SL 0.4 MG TABLET SL PRN (19:18)
[2017-07-12] MEDS: FERROUS SULFATE 325 MG TABLET PO SCH (21:43)
[2017-07-12] MEDS: POTASSIUM CHLORIDE 20 MEQ TABLET PO SCH (21:44)
[2017-07-12] MEDS: DOCUSATE SODIUM 100 MG CAPSULE PO SCH (21:47)
[2017-07-12] MEDS: CARVEDILOL 12.5 MG TABLET PO SCH (21:47)
[2017-07-12] MEDS: DIGOXIN 0.25 MG TABLET PO SCH (21:47)
[2017-07-12] MEDS: ATORVASTATIN 80 MG TABLET PO SCH (21:48)
[2017-07-12] MEDS: MAGNESIUM GLUCONATE 500 MG TABLET PO SCH (21:48)
[2017-07-12] MEDS: GABAPENTIN 300 MG CAPSULE PO SCH (21:49)
[2017-07-12] MEDS: PANTOPRAZOLE 40 MG TABLET PO SCH (21:49)
[2017-07-12] MEDS: QUEtiapine 25 MG TABLET PO SCH (21:49)
[2017-07-12] MEDS: CYANOCOBALAMIN 500 MCG TABLET PO SCH (21:49)
[2017-07-12] MEDS: PYRIDOXINE 100 MG TABLET PO SCH (21:49)
[2017-07-12] MEDS: RANOLAZINE 500 MG TABLET PO SCH (21:49)
[2017-07-12] MEDS: CILOSTAZOL 100 MG TABLET PO SCH (21:49)
[2017-07-12] MEDS: CHOLECALCIFEROL 1,000 UNIT TABLET PO SCH (21:50)
[2017-07-12] MEDS: ASCORBIC ACID 500 MG TABLET PO SCH (21:50)
[2017-07-12] MEDS: FUROSEMIDE 40 MG/4 ML VIAL IV SCH (21:54)
[2017-07-13 01:17] LABS: Basophils # 0.1 10*3/uL (0.0-0.2); Eosinophils # 0.2 10*3/uL (0.0-0.87); Eosinophils % 3.4 % (0.00-10.9); Hematocrit 37.8 VOL% (42.0-52.0); Hemoglobin 13.3 GM/DL (14.0-18.0); Immature Granulocytes % 0.9 %; Immature Granulocytes Absolute 0.06 #; Lymphocytes # 1.5 10*3/uL (1.4-4.0); Lymphocytes % 22.7 % (21.2-54.2); Mean Corpuscular HGB Conc 35.2 GM/DL (32-36); Mean Corpuscular Hemoglobin 32 PG (27-34); Mean Corpuscular Volume 92.2 FL (87-102); Mean Platelet Volume 10.1 FL (9.6-12.0); Monocytes # 0.6 10*3/uL (0.11-0.8); Monocytes % 9.2 % (1.7-12.7); Neutrophils # 4.2 10*3/uL (1.4-7.4); Neutrophils % 62.8 % (38.7-73.9); Platelet Count 184 T/CUMM (130-400); White Blood Count 6.7 T/CUMM (4-12)
[2017-07-13 01:38] LABS: Calcium 8.3 MG/DL (8.5-10.1); Osmolality,Calculated 284.1 MOS/KG (273-304); Potassium 3.3 MMOL/L (3.5-5.1); Risk Ratio 2.66; VLDL CHOLESTEROL 10.6 MG/DL
[2017-07-13] MEDS ORDERED: ASPIRIN CHEW 81 MG TABLET PO ONE (02:22)
[2017-07-13] MEDS: FUROSEMIDE 40 MG/4 ML VIAL IV SCH ×4 (02:38→20:57)
[2017-07-13] MEDS ORDERED: ISOSORBIDE MONONITRATE 60 MG TABLET PO SCH (09:00)
[2017-07-13] MEDS ORDERED: CLOPIDOGREL 75 MG TABLET PO SCH (09:00)
[2017-07-13] MEDS ORDERED: THYROID 60 MG TABLET PO SCH (09:00)
[2017-07-13] MEDS ORDERED: COENZYME Q10 100 MG CAPSULE PO SCH (09:00)
[2017-07-13] MEDS ORDERED: ENOXAPARIN 40 MG/0.4 ML SYRINGE SUBCUT SCH (09:00)
[2017-07-13] MEDS ORDERED: SERTRALINE 100 MG TABLET PO SCH (09:00)
[2017-07-13] MEDS ORDERED: ASPIRIN EC 81 MG TABLET PO SCH (09:00)
[2017-07-13] MEDS ORDERED: EPLERENONE 25 MG TABLET PO SCH ×2 (09:00→13:42)
[2017-07-13] MEDS ORDERED: FOLIC ACID 0.4 MG TABLET PO SCH (09:00)
[2017-07-13] MEDS: DOCUSATE SODIUM 100 MG CAPSULE PO SCH ×2 (09:25→21:06)
[2017-07-13] MEDS: CARVEDILOL 12.5 MG TABLET PO SCH ×2 (09:25→20:57)
[2017-07-13] MEDS: CILOSTAZOL 100 MG TABLET PO SCH ×2 (09:26→20:51)
[2017-07-13] MEDS: POTASSIUM CHLORIDE 20 MEQ TABLET PO SCH ×2 (09:26→20:50)
[2017-07-13] MEDS: PANTOPRAZOLE 40 MG TABLET PO SCH ×2 (09:27→20:57)
[2017-07-13] MEDS: CYANOCOBALAMIN 500 MCG TABLET PO SCH ×2 (09:27→20:51)
[2017-07-13] MEDS: ASCORBIC ACID 500 MG TABLET PO SCH ×2 (09:27→20:51)
[2017-07-13] MEDS: RANOLAZINE 500 MG TABLET PO SCH ×2 (09:27→20:51)
[2017-07-13] MEDS: CHOLECALCIFEROL 1,000 UNIT TABLET PO SCH ×2 (09:27→20:50)
[2017-07-13] MEDS ORDERED: LOSARTAN 25 MG TABLET PO SCH ×2 (09:30)
[2017-07-13] MEDS ORDERED: POTASSIUM CHLORIDE 20 MEQ TABLET PO ONE (13:42)
[2017-07-13] MEDS: DIGOXIN 0.25 MG TABLET PO SCH (14:25)
[2017-07-13] MEDS: GABAPENTIN 300 MG CAPSULE PO SCH (20:51)
[2017-07-13] MEDS: PYRIDOXINE 100 MG TABLET PO SCH (20:51)
[2017-07-13] MEDS: QUEtiapine 25 MG TABLET PO SCH (20:56)
[2017-07-13] MEDS: ATORVASTATIN 80 MG TABLET PO SCH (20:57)
[2017-07-13] MEDS: FERROUS SULFATE 325 MG TABLET PO SCH (20:57)
[2017-07-13] MEDS: MAGNESIUM GLUCONATE 500 MG TABLET PO SCH (20:57)
[2017-07-14] MEDS: FUROSEMIDE 40 MG/4 ML VIAL IV SCH (03:28)
[2017-07-14 07:05] LABS: Basophils % 0.7 % (0.0-0.8); Eosinophils # 0.2 10*3/uL (0.0-0.87); Eosinophils % 3.8 % (0.00-10.9); Hemoglobin 14.8 GM/DL (14.0-18.0); Immature Granulocytes % 0.2 %; Immature Granulocytes Absolute 0.01 #; Lymphocytes # 1.2 10*3/uL (1.4-4.0); Lymphocytes % 19.4 % (21.2-54.2); Mean Corpuscular HGB Conc 35.2 GM/DL (32-36); Mean Corpuscular Hemoglobin 32 PG (27-34); Mean Corpuscular Volume 91.9 FL (87-102); Monocytes # 0.6 10*3/uL (0.11-0.8); Monocytes % 9.2 % (1.7-12.7); Neutrophils # 4.1 10*3/uL (1.4-7.4); Neutrophils % 66.7 % (38.7-73.9); Platelet Count 203 T/CUMM (130-400); Red Blood Count 4.57 MC/CUMM (3.8-5.5); Red Cell Distribution Width 12.9 % (9.3-17.3); White Blood Count 6.1 T/CUMM (4-12)
[2017-07-14 07:34] LABS: Calcium 8.8 MG/DL (8.5-10.1); Osmolality,Calculated 283.1 MOS/KG (273-304); Potassium 3.2 MMOL/L (3.5-5.1)
[2017-07-14] MEDS ORDERED: POTASSIUM CHLORIDE 20 MEQ TABLET PO ONE (07:52)
[2017-07-14 09:00] VITALS: BP 106/70
== END 2017-07-14 09:16 | disposition home or self-care (01) | DRG 293 ==
LOC: N.5E 18:43 → SUATTDRO 18:43
PROVIDERS: ADMIT Internal Medicine

== ENCOUNTER 2018-11-16 02:01 | Inpatient (IN) ==
[2018-11-16] MEDS ORDERED: methylPREDNISolone SOD SUC 125 MG/2 ML VIAL IV STA (02:47)
[2018-11-16] MEDS ORDERED: ONDANSETRON 4 MG/2 ML VIAL IV STA (02:47)
[2018-11-16] MEDS ORDERED: ALBUTEROL/IPRATROPIUM 3 ML NEB RESP TX STA (02:47)
[2018-11-16] MEDS ORDERED: MORPHINE 4 MG/1 ML VIAL IV STA (02:47)
[2018-11-16 03:00] LABS: Basophils % 0.1 % (0.0-0.8); Hematocrit 37.7 VOL% (42.0-52.0); Hemoglobin 12.7 GM/DL (14.0-18.0); Immature Granulocytes % 0.7 %; Lymphocytes # 0.8 10*3/uL (1.4-4.0); Lymphocytes % 5.6 % (21.2-54.2); Mean Corpuscular HGB Conc 33.7 GM/DL (32-36); Mean Corpuscular Volume 95.2 FL (87-102); Mean Platelet Volume 9.5 FL (9.6-12.0); Monocytes % 3.3 % (1.7-12.7); Neutrophils % 90.3 % (38.7-73.9); Platelet Count 215 T/CUMM (130-400); Red Blood Count 3.96 MC/CUMM (3.8-5.5)
[2018-11-16 03:12] LABS: PT Patient Result 11.3 SECS (9.6-12.2)
[2018-11-16 03:25] LABS: Albumin 3.4 G/DL (3.4-5.0); Bilirubin,Total 0.5 MG/DL (0.2-1.0); Calcium 9.2 MG/DL (8.5-10.1); Osmolality,Calculated 283.4 MOS/KG (273-304); Total Protein 7.3 G/DL (6.4-8.3)
[2018-11-16] MEDS ORDERED: LEVOFLOXACIN INJ 750 MG in PREMIX 1 EACH IV STA (03:34)
[2018-11-16] MEDS ORDERED: ENOXAPARIN 100 MG/ML SYRINGE SUBCUT STA (03:36)
[2018-11-16] MEDS ORDERED: MAGNESIUM SULF RIDER 2 GM in PREMIX 1 EACH IV PRN ×2 (03:40→12:36)
[2018-11-16] MEDS ORDERED: ONDANSETRON 4 MG/2 ML VIAL IV PRN (03:40)
[2018-11-16] MEDS ORDERED: ALBUTEROL 2.5 MG/3 ML NEB RESP TX PRN (03:43)
[2018-11-16 07:35] LABS: Risk Ratio 2.32; VLDL CHOLESTEROL 4.2 MG/DL
[2018-11-16] MEDS: ALBUTEROL/IPRATROPIUM 3 ML NEB RESP TX SCH ×3 (07:35→19:45)
[2018-11-16] MEDS ORDERED: APIXABAN 5 MG TABLET PO SCH (09:00)
[2018-11-16 09:20] LABS: Troponin I 0.401 NG/ML (0.00-0.045)
[2018-11-16] MEDS: CILOSTAZOL 100 MG TABLET PO SCH ×2 (10:07→20:44)
[2018-11-16] MEDS: FOLIC ACID 0.4 MG TABLET PO SCH ×2 (10:07→20:43)
[2018-11-16] MEDS: LOSARTAN 25 MG TABLET PO SCH (10:07)
[2018-11-16] MEDS: MONTELUKAST 10 MG TABLET PO SCH (10:07)
[2018-11-16] MEDS: CARVEDILOL 12.5 MG TABLET PO SCH ×2 (10:08→17:09)
[2018-11-16] MEDS: MAGNESIUM OXIDE 400 MG TABLET PO SCH ×2 (10:16→20:44)
[2018-11-16] MEDS: POTASSIUM CHLORIDE 10 MEQ TABLET PO SCH ×2 (10:16→20:43)
[2018-11-16] MEDS: CHOLECALCIFEROL 1,000 UNIT TABLET PO SCH ×2 (10:16→20:45)
[2018-11-16] MEDS: RANOLAZINE 500 MG TABLET PO SCH ×2 (10:16→20:44)
[2018-11-16 11:18] LABS: Free T4 (Free Thyroxine) 0.68 NG/DL (0.76-1.46); Thyroid Stimulating Hormone 0.148 uIU/ml (0.358-3.74)
[2018-11-16] MEDS: methylPREDNISolone SOD SUC 40 MG/1 ML VIAL IV SCH ×2 (11:20→22:29)
[2018-11-16] MEDS: NITROGLYCERIN 2% OINT 1 INCH/GM PACK TOP SCH ×3 (11:21→17:55)
[2018-11-16] MEDS ORDERED: oxyCODONE/ACETAMINOPHEN 5-325 MG TABLET PO PRN (11:35)
[2018-11-16] MEDS: oxyCODONE/ACETAMINOPHEN 5-325 MG TABLET PO PRN ×2 (11:54→20:40)
[2018-11-16] MEDS ORDERED: DIAZEPAM 5 MG TABLET PO ONE (12:36)
[2018-11-16] MEDS ORDERED: POTASSIUM CHLORIDE RIDER 10 MEQ in PREMIX 1 EACH IV PRN (12:36)
[2018-11-16] MEDS ORDERED: diphenhydrAMINE CAP 25 MG CAPSULE PO ONE (12:36)
[2018-11-16] MEDS ORDERED: HEPARIN/NACL 0.9% 2 UNITS/ML 1,000 ML IV ONE (12:47)
[2018-11-16] MEDS ORDERED: NITROGLYCERIN DRIP 50 MG/250 ML BOTTLE IV ONE (12:56)
[2018-11-16] MEDS ORDERED: LIDOCAINE 1% 20 ML VIAL ONE (12:56)
[2018-11-16] MEDS ORDERED: VERAPAMIL 5 MG/2 ML VIAL ONE (12:57)
[2018-11-16] MEDS ORDERED: MIDAZOLAM 2 MG/2 ML VIAL ONE (13:16)
[2018-11-16] MEDS ORDERED: HYDROmorphone 2 MG/1 ML VIAL ONE ×2 (13:16→14:13)
[2018-11-16] MEDS ORDERED: ASPIRIN 325 MG TABLET ONE (13:31)
[2018-11-16] MEDS ORDERED: BIVALIRUDIN 250 MG VIAL IV ONE (13:48)
[2018-11-16] MEDS ORDERED: CLOPIDOGREL 300 MG TABLET ONE (13:49)
[2018-11-16] MEDS ORDERED: SODIUM CHLORIDE 0.9% 1,000 ML IV SCH (14:30)
[2018-11-16] MEDS: FUROSEMIDE 20 MG/2 ML VIAL IV SCH ×2 (15:05→17:09)
[2018-11-16] MEDS: ENOXAPARIN 100 MG/ML SYRINGE SUBCUT SCH (17:09)
[2018-11-16] MEDS: PANTOPRAZOLE 40 MG TABLET PO SCH (17:09)
[2018-11-16 18:58] LABS: Apearance,Urine CLEAR (Clear); Bilirubin,Urine Negative (Negative); Blood, Urine Negative (Negative); Glucose,Urine (UA) Negative (Negative); Ketones,Urine Negative (Negative); Nitrite,Urine Negative (Negative); Protein,Urine Negative; RBC,Urine 3 /HPF (0-4); Urine Color Yellow (Yellow); Urine Specific Gravity 1.047 (1.001-1.035); Urine Urobilinogen < 2.0 EU/DL (0.2-1.0); WBC,Urine <1 /HPF (0-6)
[2018-11-16 19:04] LABS: Barbiturates Screen,Urine Negative (Negative); Benzodiazepines Screen,Urine Positive (Negative); Cannabinoid Screen,Urine Negative (Negative); Opiate Screen,Urine Positive (Negative); Phencyclidine Screen,Urine Negative (Negative)
[2018-11-16] MEDS: CYANOCOBALAMIN 500 MCG TABLET PO SCH (20:44)
[2018-11-16] MEDS ORDERED: QUEtiapine 25 MG TABLET PO SCH (21:00)
[2018-11-16] MEDS ORDERED: GABAPENTIN 300 MG CAPSULE PO SCH (21:00)
[2018-11-16] MEDS ORDERED: DIGOXIN 0.25 MG TABLET PO SCH (21:00)
[2018-11-16] MEDS ORDERED: ATORVASTATIN 80 MG TABLET PO SCH (21:00)
[2018-11-16] MEDS ORDERED: PYRIDOXINE 100 MG TABLET PO SCH (21:00)
[2018-11-17] MEDS: ALBUTEROL/IPRATROPIUM 3 ML NEB RESP TX SCH ×3 (00:55→13:36)
[2018-11-17] MEDS: MORPHINE 4 MG/1 ML VIAL IV PRN ×2 (01:38→04:14)
[2018-11-17] MEDS: NITROGLYCERIN 2% OINT 1 INCH/GM PACK TOP SCH ×2 (01:38→06:15)
[2018-11-17] MEDS: ENOXAPARIN 100 MG/ML SYRINGE SUBCUT SCH (03:19)
[2018-11-17] MEDS ORDERED: LEVOFLOXACIN INJ 750 MG in PREMIX 1 EACH IV SCH (04:00)
[2018-11-17] MEDS: oxyCODONE/ACETAMINOPHEN 5-325 MG TABLET PO PRN (04:15)
[2018-11-17] MEDS: NITROGLYCERIN SL 0.4 MG TABLET SL PRN ×2 (04:19→10:05)
[2018-11-17 04:41] LABS: Basophils % 0.1 % (0.0-0.8); Hematocrit 34.4 VOL% (42.0-52.0); Hemoglobin 11.5 GM/DL (14.0-18.0); Immature Granulocytes % 0.6 %; Lymphocytes # 0.8 10*3/uL (1.4-4.0); Lymphocytes % 4.2 % (21.2-54.2); Mean Corpuscular HGB Conc 33.4 GM/DL (32-36); Mean Corpuscular Volume 97.5 FL (87-102); Mean Platelet Volume 9.9 FL (9.6-12.0); Monocytes % 2.5 % (1.7-12.7); Neutrophils % 92.6 % (38.7-73.9); Platelet Count 187 T/CUMM (130-400); Red Blood Count 3.53 MC/CUMM (3.8-5.5); Red Cell Distribution Width 13.2 % (9.3-17.3); White Blood Count 17.7 T/CUMM (4-12)
[2018-11-17 04:44] LABS: Blood Urea Nitrogen 22 MG/DL (7-18); Calcium 8.7 MG/DL (8.5-10.1); Glucose 149 MG/DL (74-106); Osmolality,Calculated 282.5 MOS/KG (273-304)
[2018-11-17 04:53] LABS: Troponin I 0.359 NG/ML (0.00-0.045)
[2018-11-17 05:14] LABS: Calcium 8.4 MG/DL (8.5-10.1); Osmolality,Calculated 288.1 MOS/KG (273-304)
[2018-11-17 05:34] LABS: Hypochromasia Slight; Lymphocytes 4 % (20-55); Platelet Estimate Decreased; Segmented Neutrophils 96 % (50-85); Total Cells Counted 100
[2018-11-17] MEDS ORDERED: THYROID 60 MG TABLET PO SCH (06:30)
[2018-11-17] MEDS: PANTOPRAZOLE 40 MG TABLET PO SCH (07:35)
[2018-11-17] MEDS: CARVEDILOL 12.5 MG TABLET PO SCH (08:45)
[2018-11-17] MEDS: FUROSEMIDE 20 MG/2 ML VIAL IV SCH (08:45)
[2018-11-17] MEDS ORDERED: ASCORBIC ACID 500 MG TABLET PO SCH (09:00)
[2018-11-17] MEDS ORDERED: CLOPIDOGREL 75 MG TABLET PO SCH (09:00)
[2018-11-17] MEDS ORDERED: COENZYME Q10 100 MG CAPSULE PO SCH (09:00)
[2018-11-17] MEDS ORDERED: ASPIRIN EC 81 MG TABLET PO SCH (09:00)
[2018-11-17] MEDS ORDERED: ISOSORBIDE MONONITRATE 60 MG TABLET PO SCH (09:00)
[2018-11-17] MEDS ORDERED: SERTRALINE 100 MG TABLET PO SCH (09:00)
[2018-11-17] MEDS ORDERED: EPLERENONE 50 MG TABLET PO SCH (09:00)
[2018-11-17] MEDS ORDERED: NITROGLYCERIN 2% OINT 1 INCH/GM PACK TOP SCH ×2 (09:49→10:31)
[2018-11-17] MEDS: CILOSTAZOL 100 MG TABLET PO SCH (10:20)
[2018-11-17] MEDS: MONTELUKAST 10 MG TABLET PO SCH (10:20)
[2018-11-17] MEDS: MAGNESIUM OXIDE 400 MG TABLET PO SCH (10:20)
[2018-11-17] MEDS: LOSARTAN 25 MG TABLET PO SCH (10:20)
[2018-11-17] MEDS: CYANOCOBALAMIN 500 MCG TABLET PO SCH (10:20)
[2018-11-17] MEDS: POTASSIUM CHLORIDE 10 MEQ TABLET PO SCH (10:20)
[2018-11-17] MEDS: FOLIC ACID 0.4 MG TABLET PO SCH (10:20)
[2018-11-17] MEDS: methylPREDNISolone SOD SUC 40 MG/1 ML VIAL IV SCH (10:20)
[2018-11-17] MEDS: RANOLAZINE 500 MG TABLET PO SCH (10:20)
[2018-11-17] MEDS: ACETAMINOPHEN 325 MG TABLET PO SCH ×2 (10:20→13:00)
[2018-11-17] MEDS: CHOLECALCIFEROL 1,000 UNIT TABLET PO SCH (10:20)
[2018-11-17] MEDS ORDERED: DULoxetine 20 MG CAPSULE PO SCH (12:26)
[2018-11-17 15:02] VITALS: BP 126/70
[2018-11-17] MEDS ORDERED: APIXABAN 2.5 MG TABLET PO SCH (21:00)
[2018-11-18] MEDS ORDERED: EPLERENONE 25 MG TABLET PO SCH (09:00)
== END 2018-11-17 15:25 | disposition home or self-care (01) | DRG 246 ==
LOC: N.ED 02:01 → N.EDINP 03:40 → N.5E 05:18 → N.ICU 14:42
PROVIDERS: ADMIT Internal Medicine; ATTEND Internal Medicine

== ENCOUNTER 2019-04-10 08:34 | Inpatient (IN) ==
[2019-04-10] MEDS ORDERED: DEXTROSE 50% 25 GM/50 ML VIAL IV PRN (09:20)
[2019-04-10] MEDS ORDERED: GLUCAGON 1 MG VIAL IM PRN (09:20)
[2019-04-10] MEDS ORDERED: CEFUROXIME INJ 1,500 MG in SYRINGE 1 EACH IV ONE (09:20)
[2019-04-10 09:56] LABS: Basophils % 0.5 % (0.0-0.8); Eosinophils # 0.3 10*3/uL (0.0-0.87); Eosinophils % 3.4 % (0.00-10.9); Hematocrit 35.3 VOL% (42.0-52.0); Hemoglobin 11.2 GM/DL (14.0-18.0); Immature Granulocytes % 0.8 %; Immature Granulocytes Absolute 0.06 #; Lymphocytes # 0.8 10*3/uL (1.4-4.0); Mean Corpuscular HGB Conc 31.7 GM/DL (32-36); Mean Corpuscular Volume 86.7 FL (87-102); Mean Platelet Volume 9.5 FL (9.6-12.0); Monocytes % 6.8 % (1.7-12.7); Neutrophils % 78.5 % (38.7-73.9); Platelet Count 197 T/CUMM (130-400); Red Blood Count 4.07 MC/CUMM (3.8-5.5); Red Cell Distribution Width 19.9 % (9.3-17.3); White Blood Count 7.7 T/CUMM (4-12)
[2019-04-10 10:13] LABS: Albumin 2.8 G/DL (3.4-5.0); Bilirubin,Total 0.5 MG/DL (0.2-1.0); Calcium 8.4 MG/DL (8.5-10.1); Osmolality,Calculated 275.8 MOS/KG (273-304); Total Protein 6.6 G/DL (6.4-8.3)
[2019-04-10] MEDS ORDERED: NITROGLYCERIN SL 0.4 MG TABLET SL PRN (10:18)
[2019-04-10 11:25] LABS: ABG Base Excess 3.1 MMOL/L (-2.5-2.5); ABG HCO3 27.1 MMOL/L (20-26); ABG Oxygen Saturation 95.7 % (95-100); ABG PCO2 38.9 MM HG (35-48); ABG PH 7.452 (7.35-7.45); ABG PO2 78.1 MM HG (80-95); ABG TCO2 24.1 MMOL/L (23-27); Allen Test Positive; Pt O2 Delivery Device Room Air
[2019-04-10] MEDS ORDERED: CLORAZEPATE 3.75 MG TABLET PO PRN (12:01)
[2019-04-10] MEDS: MORPHINE 4 MG/1 ML VIAL IV PRN ×3 (12:24→21:01)
[2019-04-10] MEDS: CHLORHEXIDINE 4% SOLN 118 ML BOTTLE TOP SCH ×2 (15:19→21:04)
[2019-04-10] MEDS: CHLORHEXIDINE 0.12% ORAL RINSE 60 ML BOTTLE SWISH/SPIT SCH (21:05)
[2019-04-10] MEDS: SODIUM CHLORIDE 0.9% 1,000 ML IV SCH (22:17)
[2019-04-11] MEDS ORDERED: PAPAVERINE 60 MG/2 ML VIAL ONE (04:21)
[2019-04-11] MEDS ORDERED: VANCOMYCIN 500 MG VIAL ONE (04:22)
[2019-04-11] MEDS ORDERED: VANCOMYCIN 1,000 MG VIAL ONE (04:22)
[2019-04-11] MEDS ORDERED: SUFentanil 250 MCG/5 ML AMP ONE (05:28)
[2019-04-11] MEDS ORDERED: MIDAZOLAM 10 MG/2 ML VIAL ONE ×2 (05:29)
[2019-04-11] MEDS ORDERED: DIAZEPAM 5 MG TABLET PO ONE (05:30)
[2019-04-11] MEDS ORDERED: LIDOCAINE 2% 5 ML VIAL ONE ×2 (05:30→11:18)
[2019-04-11] MEDS ORDERED: PANTOPRAZOLE 40 MG TABLET PO ONE (05:30)
[2019-04-11] MEDS ORDERED: CEFUROXIME INJ 1,500 MG in SYRINGE 1 EACH IV ONE (05:30)
[2019-04-11] MEDS ORDERED: VECURONIUM 10 MG VIAL IV ONE (05:30)
[2019-04-11] MEDS ORDERED: ETOMIDATE 40 MG/20 ML VIAL IV ONE (05:31)
[2019-04-11] MEDS ORDERED: CALCIUM CHLORIDE 1,000 MG/10 ML VIAL IV ONE (05:32)
[2019-04-11] MEDS ORDERED: NITROGLYCERIN DRIP 50 MG/250 ML BOTTLE IV ONE (05:32)
[2019-04-11] MEDS ORDERED: PHENYLEPHRINE DRIP 20 MG/250 ML PREMIX IV ONE (05:32)
[2019-04-11] MEDS ORDERED: SODIUM CHLORIDE 0.9% 250 ML IV ONE (05:33)
[2019-04-11] MEDS ORDERED: AMINOCAPROIC ACID 5,000 MG/20 ML VIAL ONE (05:33)
[2019-04-11] MEDS ORDERED: HEPARIN/NACL 0.9% 2 UNITS/ML 500 ML IV ONE (05:34)
[2019-04-11] MEDS: SODIUM CHLORIDE 0.9% 1,000 ML IV SCH ×2 (06:06→09:00)
[2019-04-11] MEDS ORDERED: NITROPRUSSIDE 50 MG/2 ML VIAL ONE (07:41)
[2019-04-11] MEDS ORDERED: SODIUM BICARBONATE 50 MEQ/50 ML VIAL IV ONE ×2 (07:42→11:18)
[2019-04-11] MEDS ORDERED: CALCIUM CHLORIDE 1,000 MG/10 ML SYRINGE IV ONE (07:42)
[2019-04-11] MEDS ORDERED: POTASSIUM CHLORIDE RIDER 100 ML IV ONE (07:42)
[2019-04-11] MEDS ORDERED: PHENYLEPHRINE DRIP 40 MG/250 ML PREMIX IV ONE (07:42)
[2019-04-11 08:04] LABS: ABG Base Excess 1.8 MMOL/L (-2.5-2.5); ABG HCO3 27.8 MMOL/L (20-26); ABG PCO2 50.3 MM HG (35-48); ABG PH 7.361 (7.35-7.45); ABG PO2 218.3 MM HG (80-95); ABG TCO2 29.4 MMOL/L (23-27); Glucose Heart Surgery 109 MG/DL (74-106); Hemoglobin Heart Surgery 11.4 G/DL (14.0-18.0); Ionized Calcium Arterial 1.16 MMOL/L (1.21-1.46); PCO2 Patient Temp Arterial 50.3 MMHG; PH Patient Temp Arterial 7.361; PO2 Patient Temp Arterial 218.3 MM HG; Patient Temperature 37 CELCIUS; Potassium Heart/CVR 3.6 MMOL/L (3.5-5.1); Sodium Heart/CVR 139 MMOL/L (135-145)
[2019-04-11 08:10] LABS: Apearance,Urine CLEAR (Clear); Bacteria,Urine Occasional /HPF (Few); Bilirubin,Urine Negative (Negative); Blood, Urine Negative (Negative); Glucose,Urine (UA) Negative (Negative); Hyaline Casts,Urine 29 /LPF (0-3); Ketones,Urine Negative (Negative); Mucus,Urine Occasional /LPF (Occasional); Nitrite,Urine Negative (Negative); Protein,Urine Negative; RBC,Urine 3 /HPF (0-4); Squamous Epithelial Cell,Urine Occasional /HPF (0-10); Urine Color Amber (Yellow); Urine Specific Gravity 1.019 (1.001-1.035); WBC,Urine 3 /HPF (0-6)
[2019-04-11] MEDS: CHLORHEXIDINE 0.12% ORAL RINSE 60 ML BOTTLE SWISH/SPIT SCH ×2 (09:00→20:39)
[2019-04-11] MEDS: CHLORHEXIDINE 4% SOLN 118 ML BOTTLE TOP SCH (09:00)
[2019-04-11 09:50] LABS: Hematocrit Heart Surgery 24.4 PERCENT (42-52); Hemoglobin Heart Surgery 7.8 G/DL (14.0-18.0); PH Patient Temp Venous 7.469; PO2 Patient Temp Venous 44.5 MM HG; Potassium Heart/CVR 3.9 MMOL/L (3.5-5.1); VBG Base Excess 4.5 MEQ/L (0-4); VBG HCO3 28.3 MEQ/L (24-28); VBG PH 7.454; VBG PO2 47.6 MMHG (17-40)
[2019-04-11 10:20] LABS: Hematocrit Heart Surgery 24.9 PERCENT (42-52); PCO2 Patient Temp Venous 33.8 MM HG; PH Patient Temp Venous 7.51; PO2 Patient Temp Venous 38.9 MM HG; VBG Base Excess 4.1 MEQ/L (0-4); VBG HCO3 27.9 MEQ/L (24-28); VBG PH 7.465; VBG PO2 47.8 MMHG (17-40)
[2019-04-11] MEDS ORDERED: THROMBIN TOPICAL (RECOMBINANT) 5,000 UNIT VIAL TOP ONE (11:04)
[2019-04-11] MEDS ORDERED: MAGNESIUM SULFATE 5 GM/10 ML VIAL IV ONE (11:18)
[2019-04-11] MEDS ORDERED: MANNITOL 100 GM/500 ML BAG IV ONE (11:18)
[2019-04-11] MEDS ORDERED: PROTAMINE SULFATE 250 MG/25 ML VIAL IV ONE (11:18)
[2019-04-11] MEDS ORDERED: DEXTROSE 5% KCL 20 MEQ 20 MEQ/1,000 ML BAG IV ONE (11:18)
[2019-04-11] MEDS ORDERED: ALBUMIN 25% 25 GM/100 ML VIAL IV ONE (11:18)
[2019-04-11] MEDS ORDERED: HEPARIN 10,000 UNIT/10 ML VIAL ONE (11:19)
[2019-04-11] MEDS ORDERED: methylPREDNISolone SOD SUC 1,000 MG/8 ML VIAL ONE (11:19)
[2019-04-11] MEDS ORDERED: FUROSEMIDE 20 MG/2 ML VIAL ONE (11:19)
[2019-04-11 11:20] LABS: ABG Base Excess 1.3 MMOL/L (-2.5-2.5); ABG HCO3 25.6 MMOL/L (20-26); ABG PCO2 33.1 MM HG (35-48); ABG PH 7.477 (7.35-7.45); ABG TCO2 22.5 MMOL/L (23-27); Glucose Heart Surgery 203 MG/DL (74-106); Hematocrit Heart Surgery 27.9 PERCENT (42-52); Ionized Calcium Arterial 1.19 MMOL/L (1.21-1.46); PCO2 Patient Temp Arterial 33.1 MMHG; PH Patient Temp Arterial 7.477; Patient Temperature 37 CELCIUS; Potassium Heart/CVR 3.3 MMOL/L (3.5-5.1); Sodium Heart/CVR 140 MMOL/L (135-145)
[2019-04-11] MEDS ORDERED: AMIODARONE 450 MG/9 ML VIAL IV ONE ×2 (12:25→20:07)
[2019-04-11] MEDS ORDERED: DOBUTamine 500 MG/250 ML PREMIX IV PRN (12:30)
[2019-04-11] MEDS ORDERED: AMIODARONE INJ 450 MG in DEXTROSE 5% 241 ML IV SCH ×2 (12:30→20:30)
[2019-04-11] MEDS ORDERED: LACTATED RINGERS 1,000 ML IV ONE ×2 (12:40→12:41)
[2019-04-11] MEDS ORDERED: SODIUM CHLORIDE 0.9% 2,000 ML IV ONE (12:40)
[2019-04-11] MEDS ORDERED: AMIODARONE 150 MG/3 ML VIAL ONE (12:40)
[2019-04-11] MEDS ORDERED: SEVOFLURANE 1 UNIT/15 MINUTE INH ONE (12:40)
[2019-04-11] MEDS ORDERED: DOBUTamine 500 MG/250 ML PREMIX IV ONE (12:40)
[2019-04-11] MEDS ORDERED: PHENYLEPHRINE 1 MG/10 ML SYRINGE IV ONE (12:40)
[2019-04-11] MEDS ORDERED: SODIUM CHLORIDE 0.9% 400 ML IV ONE (12:40)
[2019-04-11] MEDS ORDERED: VECURONIUM 10 MG VIAL IV PRN ×2 (12:49)
[2019-04-11] MEDS ORDERED: LACTATED RINGERS 250 ML IV PRN (12:49)
[2019-04-11] MEDS ORDERED: INSULIN REGULAR 100 UNIT/ML IV PRN (12:49)
[2019-04-11] MEDS ORDERED: ALBUMIN 5% 12.5 GM in PREMIX 1 EACH IV PRN (12:49)
[2019-04-11] MEDS ORDERED: ONDANSETRON 4 MG/2 ML VIAL IV PRN (12:49)
[2019-04-11] MEDS ORDERED: MIDAZOLAM 2 MG/2 ML VIAL IV PRN (12:49)
[2019-04-11] MEDS ORDERED: ACETAMINOPHEN 650 MG SUPP RECTAL PRN (12:49)
[2019-04-11] MEDS ORDERED: PHENYLEPHRINE DRIP 40 MG/250 ML PREMIX IV PRN (12:49)
[2019-04-11] MEDS ORDERED: INSULIN REGULAR DRIP 100 ML IV SCH (12:49)
[2019-04-11] MEDS ORDERED: MIDAZOLAM 10 MG/2 ML VIAL IV PRN (12:49)
[2019-04-11] MEDS ORDERED: CHLORHEXIDINE 4% SOLN 118 ML BOTTLE TOP PRN (12:49)
[2019-04-11] MEDS ORDERED: CALCIUM CHLORIDE 1,000 MG/10 ML SYRINGE IV PRN (12:49)
[2019-04-11] MEDS ORDERED: MAGNESIUM SULF RIDER 4 GM in PREMIX 1 EACH IV PRN (12:49)
[2019-04-11] MEDS ORDERED: INSULIN REGULAR 100 UNIT/ML IV ONE (12:49)
[2019-04-11] MEDS ORDERED: MAGNESIUM SULF RIDER 2 GM in PREMIX 1 EACH IV PRN (12:49)
[2019-04-11] MEDS ORDERED: MORPHINE 10 MG/1 ML VIAL IV PRN (12:49)
[2019-04-11] MEDS ORDERED: NITROPRUSSIDE 100 MG in DEXTROSE 5% 250 ML IV PRN (12:49)
[2019-04-11] MEDS ORDERED: SODIUM CHLORIDE 0.45% 1,000 ML IV SCH ×2 (12:49)
[2019-04-11] MEDS ORDERED: PROTAMINE SULFATE 50 MG/5 ML VIAL IV ONE ×2 (12:57→12:59)
[2019-04-11 13:00] LABS: ABG Base Excess 0.5 MMOL/L (-2.5-2.5); ABG HCO3 24.9 MMOL/L (20-26); ABG Oxygen Saturation 99.9 % (95-100); ABG PH 7.391 (7.35-7.45); ABG TCO2 23.4 MMOL/L (23-27); Glucose Heart Surgery 186 MG/DL (74-106); Hematocrit Heart Surgery 28.3 PERCENT (42-52); Hemoglobin Heart Surgery 9.1 G/DL (14.0-18.0)
[2019-04-11] MEDS ORDERED: DEXTROSE 10% 250 ML BAG IV PRN ×2 (13:00→13:01)
[2019-04-11 13:05] LABS: Basophils % 0.2 % (0.0-0.8); Eosinophils # 0.1 10*3/uL (0.0-0.87); Eosinophils % 0.9 % (0.00-10.9); Hematocrit 27.7 VOL% (42.0-52.0); Hemoglobin 8.8 GM/DL (14.0-18.0); Immature Granulocytes % 1.3 %; Immature Granulocytes Absolute 0.14 #; Lymphocytes # 0.5 10*3/uL (1.4-4.0); Lymphocytes % 4.6 % (21.2-54.2); Mean Corpuscular HGB Conc 31.8 GM/DL (32-36); Mean Corpuscular Volume 87.9 FL (87-102); Mean Platelet Volume 9.7 FL (9.6-12.0); Platelet Count 148 T/CUMM (130-400); Red Blood Count 3.15 MC/CUMM (3.8-5.5); Red Cell Distribution Width 20.4 % (9.3-17.3); White Blood Count 10.5 T/CUMM (4-12)
[2019-04-11 13:15] LABS: INR 1.2
[2019-04-11] MEDS: POTASSIUM CHLORIDE RIDER 20 MEQ in PREMIX 1 EACH IV PRN ×7 (13:15→23:06)
[2019-04-11 13:25] LABS: Band Neutrophils 1 % (0-10); Elliptocytes 1+; Hypochromasia 1+; Lymphocytes 7 % (20-55); Segmented Neutrophils 89 % (50-85); Total Cells Counted 100
[2019-04-11 13:26] LABS: Anisocytosis Slight; Platelet Estimate Adequate; Polychromasia Few; Schistocytes Few
[2019-04-11 13:36] LABS: CKMB % 8.3 %
[2019-04-11 13:39] LABS: Troponin I 2.54 NG/ML (0.00-0.045)
[2019-04-11 13:48] LABS: Albumin 2.7 G/DL (3.4-5.0); Bilirubin,Total 1.1 MG/DL (0.2-1.0); Calcium 7.6 MG/DL (8.5-10.1); Osmolality,Calculated 294.6 MOS/KG (273-304); Total Protein 5.4 G/DL (6.4-8.3)
[2019-04-11 14:20] LABS: ABG Base Excess 1.2 MMOL/L (-2.5-2.5); ABG HCO3 25.5 MMOL/L (20-26); ABG Oxygen Saturation 94.8 % (95-100); ABG PCO2 43.1 MM HG (35-48); ABG PH 7.393 (7.35-7.45); ABG PO2 79.2 MM HG (80-95); ABG TCO2 24.3 MMOL/L (23-27); Glucose Heart Surgery 188 MG/DL (74-106); Hematocrit Heart Surgery 27.6 PERCENT (42-52); Hemoglobin Heart Surgery 8.9 G/DL (14.0-18.0); Potassium Heart/CVR 3.8 MMOL/L (3.5-5.1)
[2019-04-11] MEDS: POTASSIUM CHLORIDE RIDER 10 MEQ in PREMIX 1 EACH IV PRN ×3 (15:35→21:10)
[2019-04-11 17:01] LABS: ABG Base Excess -1.3 MMOL/L (-2.5-2.5); ABG HCO3 24.4 MMOL/L (20-26); ABG Oxygen Saturation 96.9 % (95-100); ABG PCO2 44.4 MM HG (35-48); ABG PH 7.357 (7.35-7.45); ABG PO2 99.9 MM HG (80-95); ABG TCO2 25.7 MMOL/L (23-27); Glucose Heart Surgery 164 MG/DL (74-106); Hemoglobin Heart Surgery 11.8 G/DL (14.0-18.0); Potassium Heart/CVR 3.8 MMOL/L (3.5-5.1)
[2019-04-11] MEDS ORDERED: HALOPERIDOL 5 MG/ML AMP IV PRN (17:56)
[2019-04-11 19:59] LABS: ABG HCO3 23.6 MMOL/L (20-26); ABG PH 7.335 (7.35-7.45); Glucose Heart Surgery 134 MG/DL (74-106); Hematocrit Heart Surgery 31.2 PERCENT (42-52); Hemoglobin Heart Surgery 10.1 G/DL (14.0-18.0); Potassium Heart/CVR 3.6 MMOL/L (3.5-5.1)
[2019-04-11 20:29] LABS: CKMB % 8.9 %
[2019-04-11 20:33] LABS: Troponin I 4.86 NG/ML (0.00-0.045)
[2019-04-11] MEDS: FUROSEMIDE 40 MG/4 ML VIAL IV PRN (20:33)
[2019-04-11] MEDS: CEFUROXIME INJ 1,500 MG in SYRINGE 1 EACH IV SCH (20:37)
[2019-04-11 22:26] LABS: ABG Base Excess 0.6 MMOL/L (-2.5-2.5); ABG HCO3 24.9 MMOL/L (20-26); ABG PCO2 44.8 MM HG (35-48); ABG PH 7.373 (7.35-7.45); ABG TCO2 23.6 MMOL/L (23-27); Glucose Heart Surgery 121 MG/DL (74-106); Hematocrit Heart Surgery 32.4 PERCENT (42-52); Hemoglobin Heart Surgery 10.5 G/DL (14.0-18.0); Potassium Heart/CVR 3.4 MMOL/L (3.5-5.1)
[2019-04-11] MEDS ORDERED: POTASSIUM CHLORIDE RIDER 200 ML IV ONE (22:33)
[2019-04-11] MEDS: MORPHINE 4 MG/1 ML VIAL IV PRN (22:46)
[2019-04-12 01:30] LABS: ABG Base Excess 0.4 MMOL/L (-2.5-2.5); ABG HCO3 24.8 MMOL/L (20-26); ABG Oxygen Saturation 97.3 % (95-100); ABG PCO2 51.8 MM HG (35-48); ABG PH 7.327 (7.35-7.45); ABG TCO2 24.6 MMOL/L (23-27); Glucose Heart Surgery 142 MG/DL (74-106); Hemoglobin Heart Surgery 10.7 G/DL (14.0-18.0); Potassium Heart/CVR 3.4 MMOL/L (3.5-5.1)
[2019-04-12] MEDS: POTASSIUM CHLORIDE RIDER 20 MEQ in PREMIX 1 EACH IV PRN ×4 (01:40→05:12)
[2019-04-12] MEDS ORDERED: FUROSEMIDE 40 MG/4 ML VIAL IV ONE (02:43)
[2019-04-12 03:16] LABS: ABG Base Excess 1.5 MMOL/L (-2.5-2.5); ABG HCO3 25.8 MMOL/L (20-26); ABG Oxygen Saturation 98.6 % (95-100); ABG PCO2 35.7 MM HG (35-48); ABG PH 7.455 (7.35-7.45); ABG TCO2 22.8 MMOL/L (23-27); Glucose Heart Surgery 131 MG/DL (74-106); Hematocrit Heart Surgery 30.9 PERCENT (42-52); Potassium Heart/CVR 3.5 MMOL/L (3.5-5.1)
[2019-04-12 03:38] LABS: Basophils % 0.1 % (0.0-0.8); Hematocrit 31.1 VOL% (42.0-52.0); Hemoglobin 10.1 GM/DL (14.0-18.0); Immature Granulocytes % 0.5 %; Immature Granulocytes Absolute 0.07 #; Lymphocytes # 0.4 10*3/uL (1.4-4.0); Lymphocytes % 3.3 % (21.2-54.2); Mean Corpuscular HGB Conc 32.5 GM/DL (32-36); Mean Corpuscular Volume 87.6 FL (87-102); Mean Platelet Volume 10.3 FL (9.6-12.0); Monocytes % 4.2 % (1.7-12.7); Neutrophils % 91.9 % (38.7-73.9); Platelet Count 149 T/CUMM (130-400); Red Blood Count 3.55 MC/CUMM (3.8-5.5); Red Cell Distribution Width 19.3 % (9.3-17.3); White Blood Count 13.4 T/CUMM (4-12)
[2019-04-12 03:40] LABS: ABG Base Excess 1.4 MMOL/L (-2.5-2.5); ABG HCO3 25.7 MMOL/L (20-26); ABG Oxygen Saturation 98.6 % (95-100); ABG PCO2 46.1 MM HG (35-48); ABG PH 7.375 (7.35-7.45); ABG TCO2 24.4 MMOL/L (23-27); Glucose Heart Surgery 131 MG/DL (74-106); Hematocrit Heart Surgery 33.1 PERCENT (42-52); Hemoglobin Heart Surgery 10.7 G/DL (14.0-18.0); Potassium Heart/CVR 3.3 MMOL/L (3.5-5.1)
[2019-04-12 03:45] LABS: Albumin 2.8 G/DL (3.4-5.0); Bilirubin,Direct 0.48 MG/DL (0.0-0.20); Bilirubin,Total 0.9 MG/DL (0.2-1.0); Calcium 7.6 MG/DL (8.5-10.1); Osmolality,Calculated 284.1 MOS/KG (273-304); Total Protein 6.2 G/DL (6.4-8.3)
[2019-04-12 03:55] LABS: CKMB % 8.9 %
[2019-04-12 03:56] LABS: Band Neutrophils 3 % (0-10); Lymphocytes 2 % (20-55); Segmented Neutrophils 92 % (50-85); Total Cells Counted 100
[2019-04-12 03:57] LABS: Hypochromasia 1+; Ovalocytes Slight; Platelet Estimate Adequate
[2019-04-12 04:02] LABS: Free T4 (Free Thyroxine) 0.78 NG/DL (0.76-1.46); Thyroid Stimulating Hormone 0.276 uIU/ml (0.358-3.74)
[2019-04-12 04:03] LABS: Troponin I 6.98 NG/ML (0.00-0.045)
[2019-04-12 04:35] LABS: ABG Base Excess 0.7 MMOL/L (-2.5-2.5); ABG Oxygen Saturation 98.6 % (95-100); ABG PCO2 47.4 MM HG (35-48); ABG PH 7.357 (7.35-7.45); Glucose Heart Surgery 134 MG/DL (74-106); Hematocrit Heart Surgery 33.5 PERCENT (42-52); Hemoglobin Heart Surgery 10.9 G/DL (14.0-18.0); Potassium Heart/CVR 3.4 MMOL/L (3.5-5.1)
[2019-04-12] MEDS: INSULIN REGULAR 100 UNIT/ML SUBCUT SCH ×4 (07:45→21:09)
[2019-04-12] MEDS: CEFUROXIME INJ 1,500 MG in SYRINGE 1 EACH IV SCH ×2 (07:50→21:14)
[2019-04-12 08:16] LABS: ABG HCO3 25.3 MMOL/L (20-26); ABG Oxygen Saturation 98.4 % (95-100); ABG PCO2 45.2 MM HG (35-48); ABG PH 7.377 (7.35-7.45); ABG TCO2 23.9 MMOL/L (23-27); Glucose Heart Surgery 128 MG/DL (74-106); Hematocrit Heart Surgery 33.6 PERCENT (42-52); Hemoglobin Heart Surgery 10.9 G/DL (14.0-18.0); Potassium Heart/CVR 3.7 MMOL/L (3.5-5.1)
[2019-04-12] MEDS: MORPHINE 4 MG/1 ML VIAL IV PRN ×4 (08:37→21:25)
[2019-04-12] MEDS: AMIODARONE 200 MG TABLET PO SCH ×2 (08:40→21:12)
[2019-04-12] MEDS: SODIUM CHLOR 0.45% KCL 20 MEQ 20 MEQ/1,000 ML BAG IV SCH (08:40)
[2019-04-12] MEDS: CHLORHEXIDINE 0.12% ORAL RINSE 60 ML BOTTLE SWISH/SPIT SCH ×2 (09:20→21:16)
[2019-04-12] MEDS ORDERED: carvediloL 12.5 MG TABLET PO SCH (12:00)
[2019-04-12] MEDS ORDERED: metOLazone 2.5 MG TABLET PO ONE (13:09)
[2019-04-12 13:16] LABS: CKMB % 6.8 %
[2019-04-12 13:19] LABS: Troponin I 6.6 NG/ML (0.00-0.045)
[2019-04-12] MEDS ORDERED: NITROGLYCERIN SL 0.4 MG TABLET SL PRN (13:22)
[2019-04-12] MEDS ORDERED: metOLazone 2.5 MG TABLET PO PRN (13:22)
[2019-04-12] MEDS: ATORVASTATIN 80 MG TABLET PO SCH (18:28)
[2019-04-12] MEDS: carvediloL 12.5 MG TABLET PO SCH (18:28)
[2019-04-12] MEDS: CHOLECALCIFEROL 1,000 UNIT TABLET PO SCH (18:28)
[2019-04-12] MEDS: PANTOPRAZOLE 20 MG TABLET PO SCH (18:29)
[2019-04-12] MEDS ORDERED: DIGOXIN 0.25 MG TABLET PO SCH (19:00)
[2019-04-12] MEDS ORDERED: ASCORBIC ACID 500 MG TABLET PO SCH (21:00)
[2019-04-12] MEDS ORDERED: cilostazoL 100 MG TABLET PO SCH (21:00)
[2019-04-12] MEDS: COENZYME Q10 100 MG CAPSULE PO SCH (21:10)
[2019-04-12] MEDS: PYRIDOXINE 100 MG TABLET PO SCH (21:10)
[2019-04-12] MEDS: MAGNESIUM OXIDE 400 MG TABLET PO SCH (21:11)
[2019-04-12] MEDS: GABAPENTIN 300 MG CAPSULE PO SCH (21:11)
[2019-04-12] MEDS: QUEtiapine 25 MG TABLET PO SCH (21:11)
[2019-04-12] MEDS: CYANOCOBALAMIN 500 MCG TABLET PO SCH (21:12)
[2019-04-12] MEDS: ASCORBIC ACID 500 MG TABLET PO SCH (21:12)
[2019-04-12] MEDS: FERROUS SULFATE 325 MG TABLET PO SCH (21:12)
[2019-04-12] MEDS: DOCUSATE SODIUM 100 MG CAPSULE PO SCH (21:13)
[2019-04-12 23:28] LABS: ABG Base Excess 2.1 MMOL/L (-2.5-2.5); ABG HCO3 26.3 MMOL/L (20-26); ABG PCO2 40.2 MM HG (35-48); ABG PH 7.428 (7.35-7.45); ABG PO2 86.3 MM HG (80-95); ABG TCO2 23.8 MMOL/L (23-27); Glucose Heart Surgery 115 MG/DL (74-106); Hematocrit Heart Surgery 34.1 PERCENT (42-52); Hemoglobin Heart Surgery 11.1 G/DL (14.0-18.0); Potassium Heart/CVR 3.5 MMOL/L (3.5-5.1)
[2019-04-12] MEDS ORDERED: AMIODARONE INJ 100 MG in DEXTROSE 5% 100 ML IV ONE (23:40)
[2019-04-12] MEDS ORDERED: HALOPERIDOL 5 MG/ML AMP IV PRN (23:44)
[2019-04-13] MEDS: INSULIN REGULAR 100 UNIT/ML SUBCUT SCH ×7 (00:55→23:40)
[2019-04-13] MEDS: IBUPROFEN 800 MG TABLET PO PRN (01:36)
[2019-04-13 04:48] LABS: Basophils % 0.2 % (0.0-0.8); Eosinophils % 0.2 % (0.00-10.9); Hematocrit 31.4 VOL% (42.0-52.0); Hemoglobin 9.8 GM/DL (14.0-18.0); Immature Granulocytes % 0.6 %; Immature Granulocytes Absolute 0.08 #; Lymphocytes # 0.7 10*3/uL (1.4-4.0); Lymphocytes % 5.8 % (21.2-54.2); Mean Corpuscular HGB Conc 31.2 GM/DL (32-36); Mean Corpuscular Volume 90.2 FL (87-102); Mean Platelet Volume 10.3 FL (9.6-12.0); Monocytes % 7.4 % (1.7-12.7); Neutrophils % 85.8 % (38.7-73.9); Platelet Count 143 T/CUMM (130-400); Red Blood Count 3.48 MC/CUMM (3.8-5.5); Red Cell Distribution Width 19.8 % (9.3-17.3); White Blood Count 12.8 T/CUMM (4-12)
[2019-04-13 05:06] LABS: Albumin 2.5 G/DL (3.4-5.0); Bilirubin,Direct 0.54 MG/DL (0.0-0.20); Calcium 8.2 MG/DL (8.5-10.1); Osmolality,Calculated 279.5 MOS/KG (273-304); Total Protein 5.9 G/DL (6.4-8.3)
[2019-04-13] MEDS: POTASSIUM CHLORIDE RIDER 20 MEQ in PREMIX 1 EACH IV PRN ×6 (05:20→22:02)
[2019-04-13] MEDS ORDERED: KETOROLAC 30 MG/1 ML VIAL IV PRN (06:20)
[2019-04-13] MEDS: FUROSEMIDE 40 MG/4 ML VIAL IV PRN (06:29)
[2019-04-13] MEDS: SERTRALINE 100 MG TABLET PO SCH (06:31)
[2019-04-13] MEDS: ASPIRIN EC 81 MG TABLET PO SCH (06:31)
[2019-04-13] MEDS: EPLERENONE 25 MG TABLET PO SCH (06:31)
[2019-04-13] MEDS: PANTOPRAZOLE 20 MG TABLET PO SCH ×2 (06:31→18:03)
[2019-04-13] MEDS: carvediloL 12.5 MG TABLET PO SCH ×2 (06:31→18:04)
[2019-04-13] MEDS: THYROID 60 MG TABLET PO SCH (06:31)
[2019-04-13] MEDS: ISOSORBIDE MONONITRATE 60 MG TABLET PO SCH (06:31)
[2019-04-13] MEDS: CHOLECALCIFEROL 1,000 UNIT TABLET PO SCH ×2 (06:31→18:03)
[2019-04-13] MEDS: FUROSEMIDE 40 MG TABLET PO SCH (06:55)
[2019-04-13] MEDS: SODIUM CHLOR 0.45% KCL 20 MEQ 20 MEQ/1,000 ML BAG IV SCH (09:08)
[2019-04-13] MEDS: LOSARTAN 25 MG TABLET PO SCH (09:54)
[2019-04-13] MEDS: ASCORBIC ACID 500 MG TABLET PO SCH ×2 (09:55→20:14)
[2019-04-13] MEDS: CYANOCOBALAMIN 500 MCG TABLET PO SCH ×2 (09:56→20:20)
[2019-04-13] MEDS: MONTELUKAST 10 MG TABLET PO SCH (09:56)
[2019-04-13] MEDS: DOCUSATE SODIUM 100 MG CAPSULE PO SCH ×2 (09:57→20:17)
[2019-04-13] MEDS: methylPREDNISolone 4 MG TABLET PO SCH (09:57)
[2019-04-13] MEDS: COENZYME Q10 100 MG CAPSULE PO SCH ×2 (09:57→20:14)
[2019-04-13] MEDS: AMIODARONE 200 MG TABLET PO SCH ×2 (09:57→20:17)
[2019-04-13] MEDS: FOLIC ACID 0.4 MG TABLET PO SCH (09:59)
[2019-04-13] MEDS: CHLORHEXIDINE 0.12% ORAL RINSE 60 ML BOTTLE SWISH/SPIT SCH ×2 (10:00→20:18)
[2019-04-13] MEDS ORDERED: MORPHINE 4 MG/1 ML VIAL IV PRN (13:16)
[2019-04-13] MEDS: ATORVASTATIN 80 MG TABLET PO SCH (18:04)
[2019-04-13] MEDS: POTASSIUM CHLORIDE RIDER 10 MEQ in PREMIX 1 EACH IV PRN ×2 (18:55→22:36)
[2019-04-13] MEDS: PYRIDOXINE 100 MG TABLET PO SCH (20:14)
[2019-04-13] MEDS: MAGNESIUM OXIDE 400 MG TABLET PO SCH (20:14)
[2019-04-13] MEDS: GABAPENTIN 300 MG CAPSULE PO SCH (20:17)
[2019-04-13] MEDS: QUEtiapine 25 MG TABLET PO SCH (20:17)
[2019-04-13] MEDS: FERROUS SULFATE 325 MG TABLET PO SCH (20:17)
[2019-04-14 05:22] LABS: Basophils % 0.3 % (0.0-0.8); Eosinophils # 0.1 10*3/uL (0.0-0.87); Eosinophils % 0.5 % (0.00-10.9); Hematocrit 29.7 VOL% (42.0-52.0); Hemoglobin 9.6 GM/DL (14.0-18.0); Immature Granulocytes % 0.7 %; Immature Granulocytes Absolute 0.08 #; Lymphocytes # 0.9 10*3/uL (1.4-4.0); Lymphocytes % 7.9 % (21.2-54.2); Mean Corpuscular HGB Conc 32.3 GM/DL (32-36); Mean Corpuscular Volume 87.9 FL (87-102); Mean Platelet Volume 10.3 FL (9.6-12.0); Neutrophils % 82.6 % (38.7-73.9); Platelet Count 141 T/CUMM (130-400); Red Blood Count 3.38 MC/CUMM (3.8-5.5); Red Cell Distribution Width 19.5 % (9.3-17.3); White Blood Count 11.6 T/CUMM (4-12)
[2019-04-14 05:52] LABS: Albumin 2.3 G/DL (3.4-5.0); Bilirubin,Direct 0.56 MG/DL (0.0-0.20); Bilirubin,Total 1.3 MG/DL (0.2-1.0); Calcium 8.3 MG/DL (8.5-10.1); Osmolality,Calculated 278.5 MOS/KG (273-304); Total Protein 5.9 G/DL (6.4-8.3)
[2019-04-14] MEDS: INSULIN REGULAR 100 UNIT/ML SUBCUT SCH ×2 (06:13→07:37)
[2019-04-14] MEDS: ASPIRIN EC 81 MG TABLET PO SCH (06:14)
[2019-04-14] MEDS: carvediloL 12.5 MG TABLET PO SCH ×2 (06:14→18:14)
[2019-04-14] MEDS: ISOSORBIDE MONONITRATE 60 MG TABLET PO SCH (06:14)
[2019-04-14] MEDS: THYROID 60 MG TABLET PO SCH (06:14)
[2019-04-14] MEDS: PANTOPRAZOLE 20 MG TABLET PO SCH ×2 (06:14→20:50)
[2019-04-14] MEDS: CHOLECALCIFEROL 1,000 UNIT TABLET PO SCH (06:14)
[2019-04-14] MEDS: FUROSEMIDE 40 MG TABLET PO SCH (06:15)
[2019-04-14] MEDS: SERTRALINE 100 MG TABLET PO SCH (06:15)
[2019-04-14] MEDS: POTASSIUM CHLORIDE RIDER 20 MEQ in PREMIX 1 EACH IV PRN (06:19)
[2019-04-14] MEDS: EPLERENONE 25 MG TABLET PO SCH (06:19)
[2019-04-14 06:34] LABS: Calcium 8.4 MG/DL (8.5-10.1); Osmolality,Calculated 279.5 MOS/KG (273-304)
[2019-04-14] MEDS: CYANOCOBALAMIN 500 MCG TABLET PO SCH ×2 (09:30→20:43)
[2019-04-14] MEDS: methylPREDNISolone 4 MG TABLET PO SCH (09:30)
[2019-04-14] MEDS: ASCORBIC ACID 500 MG TABLET PO SCH ×2 (09:31→20:44)
[2019-04-14] MEDS: FOLIC ACID 0.4 MG TABLET PO SCH (09:31)
[2019-04-14] MEDS: AMIODARONE 200 MG TABLET PO SCH ×2 (09:32→20:43)
[2019-04-14] MEDS: APIXABAN 2.5 MG TABLET PO SCH ×2 (09:32→20:44)
[2019-04-14] MEDS: COENZYME Q10 100 MG CAPSULE PO SCH ×2 (09:32→20:43)
[2019-04-14] MEDS: MONTELUKAST 10 MG TABLET PO SCH (09:32)
[2019-04-14] MEDS: DOCUSATE SODIUM 100 MG CAPSULE PO SCH (09:32)
[2019-04-14] MEDS: LOSARTAN 25 MG TABLET PO SCH (09:33)
[2019-04-14] MEDS: CHLORHEXIDINE 0.12% ORAL RINSE 60 ML BOTTLE SWISH/SPIT SCH (09:33)
[2019-04-14] MEDS: SODIUM CHLOR 0.45% KCL 20 MEQ 20 MEQ/1,000 ML BAG IV SCH (09:36)
[2019-04-14] MEDS ORDERED: MAGNESIUM SULF RIDER 2 GM in PREMIX 1 EACH IV PRN (11:17)
[2019-04-14] MEDS ORDERED: MAGNESIUM HYDROXIDE SUSP 30 ML UDCUP PO PRN (11:17)
[2019-04-14] MEDS ORDERED: ONDANSETRON 4 MG/2 ML VIAL IV PRN (11:17)
[2019-04-14] MEDS ORDERED: SODIUM CHLOR 0.45% KCL 20 MEQ 20 MEQ/1,000 ML BAG IV SCH (11:17)
[2019-04-14] MEDS ORDERED: GLUCAGON 1 MG VIAL IM PRN (11:17)
[2019-04-14] MEDS ORDERED: DEXTROSE 10% 25 GM/250 ML BAG IV PRN (11:17)
[2019-04-14] MEDS ORDERED: ACETAMINOPHEN 325 MG TABLET PO PRN (11:17)
[2019-04-14] MEDS ORDERED: ALUMINUM/MAGNES/SIMETH MAX STR 30 ML UDCUP PO PRN (11:17)
[2019-04-14] MEDS ORDERED: MAGNESIUM SULF RIDER 4 GM in PREMIX 1 EACH IV PRN (11:17)
[2019-04-14] MEDS: oxyCODONE/ACETAMINOPHEN 5-325 MG TABLET PO PRN (17:05)
[2019-04-14] MEDS: RANOLAZINE 500 MG TABLET PO SCH (20:42)
[2019-04-14] MEDS: QUEtiapine 25 MG TABLET PO SCH (20:43)
[2019-04-14] MEDS: GABAPENTIN 300 MG CAPSULE PO SCH (20:44)
[2019-04-14] MEDS: FERROUS SULFATE 325 MG TABLET PO SCH (20:44)
[2019-04-14] MEDS: ZALEPLON 5 MG CAPSULE PO PRN (20:44)
[2019-04-14] MEDS: ATORVASTATIN 80 MG TABLET PO SCH (20:50)
[2019-04-15 05:39] LABS: Basophils % 0.2 % (0.0-0.8); Eosinophils # 0.2 10*3/uL (0.0-0.87); Eosinophils % 2.1 % (0.00-10.9); Hematocrit 30.2 VOL% (42.0-52.0); Hemoglobin 9.8 GM/DL (14.0-18.0); Immature Granulocytes % 0.7 %; Immature Granulocytes Absolute 0.07 #; Lymphocytes # 1.2 10*3/uL (1.4-4.0); Lymphocytes % 11.8 % (21.2-54.2); Mean Corpuscular HGB Conc 32.5 GM/DL (32-36); Mean Platelet Volume 10.4 FL (9.6-12.0); Monocytes % 9.5 % (1.7-12.7); Neutrophils % 75.7 % (38.7-73.9); Platelet Count 172 T/CUMM (130-400); Red Blood Count 3.43 MC/CUMM (3.8-5.5); Red Cell Distribution Width 19.3 % (9.3-17.3); White Blood Count 9.9 T/CUMM (4-12)
[2019-04-15] MEDS ORDERED: FUROSEMIDE 40 MG/4 ML VIAL IV ONE (06:00)
[2019-04-15 06:01] LABS: Alanine Aminotransferase 26 U/L (16-61); Albumin 2.4 G/DL (3.4-5.0); Alkaline Phosphatase 63 U/L (45-117); Aspartate Amino Transferase 26 U/L (0-37); Bilirubin,Indirect 0.7 MG/DL (0.0-1.0); Blood Urea Nitrogen 24 MG/DL (7-18); Calcium 8.6 MG/DL (8.5-10.1); Estimated Glom Filtration Rate 117 ML/MIN; Glucose 94 MG/DL (74-106); Total Protein 6.1 G/DL (6.4-8.3)
[2019-04-15] MEDS: POTASSIUM CHLORIDE 20 MEQ TABLET PO PRN ×3 (06:17→21:36)
[2019-04-15] MEDS: RANOLAZINE 500 MG TABLET PO SCH ×2 (06:33→21:38)
[2019-04-15] MEDS: ISOSORBIDE MONONITRATE 60 MG TABLET PO SCH (06:33)
[2019-04-15] MEDS: SERTRALINE 100 MG TABLET PO SCH (06:34)
[2019-04-15] MEDS: carvediloL 12.5 MG TABLET PO SCH (06:34)
[2019-04-15] MEDS: THYROID 60 MG TABLET PO SCH (06:34)
[2019-04-15] MEDS: PANTOPRAZOLE 20 MG TABLET PO SCH ×2 (06:35→21:37)
[2019-04-15] MEDS: FUROSEMIDE 40 MG TABLET PO SCH (06:35)
[2019-04-15] MEDS: ASPIRIN EC 81 MG TABLET PO SCH (06:35)
[2019-04-15] MEDS: DOCUSATE SODIUM 100 MG CAPSULE PO SCH (08:22)
[2019-04-15] MEDS: CYANOCOBALAMIN 500 MCG TABLET PO SCH ×2 (08:23→21:37)
[2019-04-15] MEDS: AMIODARONE 200 MG TABLET PO SCH ×2 (08:24→21:38)
[2019-04-15] MEDS: APIXABAN 2.5 MG TABLET PO SCH (08:24)
[2019-04-15] MEDS: FOLIC ACID 0.4 MG TABLET PO SCH (08:24)
[2019-04-15] MEDS: COENZYME Q10 100 MG CAPSULE PO SCH ×2 (08:24→21:37)
[2019-04-15] MEDS: ASCORBIC ACID 500 MG TABLET PO SCH ×2 (08:25→21:36)
[2019-04-15] MEDS: MONTELUKAST 10 MG TABLET PO SCH (08:30)
[2019-04-15] MEDS: methylPREDNISolone 4 MG TABLET PO SCH (08:30)
[2019-04-15] MEDS: LOSARTAN 25 MG TABLET PO SCH (10:00)
[2019-04-15] MEDS: oxyCODONE/ACETAMINOPHEN 5-325 MG TABLET PO PRN ×2 (11:24→21:38)
[2019-04-15] MEDS: ATORVASTATIN 80 MG TABLET PO SCH (21:37)
[2019-04-15] MEDS: QUEtiapine 25 MG TABLET PO SCH (21:37)
[2019-04-15] MEDS: GABAPENTIN 300 MG CAPSULE PO SCH (21:38)
[2019-04-15] MEDS: FERROUS SULFATE 325 MG TABLET PO SCH (21:38)
[2019-04-15] MEDS: ZALEPLON 5 MG CAPSULE PO PRN (21:38)
[2019-04-15] MEDS: APIXABAN 5 MG TABLET PO SCH (21:38)
[2019-04-16 05:56] LABS: Basophils # 0.1 10*3/uL (0.0-0.2); Basophils % 0.6 % (0.0-0.8); Eosinophils # 0.2 10*3/uL (0.0-0.87); Eosinophils % 2.5 % (0.00-10.9); Hematocrit 29.7 VOL% (42.0-52.0); Hemoglobin 9.4 GM/DL (14.0-18.0); Immature Granulocytes % 1.5 %; Immature Granulocytes Absolute 0.12 #; Lymphocytes % 11.6 % (21.2-54.2); Mean Corpuscular HGB Conc 31.6 GM/DL (32-36); Mean Corpuscular Volume 87.9 FL (87-102); Mean Platelet Volume 10.5 FL (9.6-12.0); Monocytes % 11.1 % (1.7-12.7); Neutrophils % 72.7 % (38.7-73.9); Platelet Count 181 T/CUMM (130-400); Red Blood Count 3.38 MC/CUMM (3.8-5.5); Red Cell Distribution Width 19.6 % (9.3-17.3); White Blood Count 8.3 T/CUMM (4-12)
[2019-04-16 05:57] LABS: Calcium 8.6 MG/DL (8.5-10.1)
[2019-04-16] MEDS: SERTRALINE 100 MG TABLET PO SCH (06:04)
[2019-04-16] MEDS: THYROID 60 MG TABLET PO SCH (06:04)
[2019-04-16] MEDS: FUROSEMIDE 40 MG TABLET PO SCH (06:04)
[2019-04-16] MEDS: RANOLAZINE 500 MG TABLET PO SCH ×2 (06:04→18:36)
[2019-04-16] MEDS: PANTOPRAZOLE 20 MG TABLET PO SCH ×2 (06:05→18:35)
[2019-04-16] MEDS: ISOSORBIDE MONONITRATE 60 MG TABLET PO SCH (06:05)
[2019-04-16] MEDS: ASPIRIN EC 81 MG TABLET PO SCH (06:05)
[2019-04-16] MEDS: carvediloL 12.5 MG TABLET PO SCH ×3 (06:06→18:35)
[2019-04-16 06:15] LABS: Alanine Aminotransferase 34 U/L (16-61); Albumin 2.4 G/DL (3.4-5.0); Alkaline Phosphatase 66 U/L (45-117); Aspartate Amino Transferase 33 U/L (0-37); Bilirubin,Indirect 1.1 MG/DL (0.0-1.0); Blood Urea Nitrogen 22 MG/DL (7-18); Calcium 8.7 MG/DL (8.5-10.1); Estimated Glom Filtration Rate 123 ML/MIN; Glucose 84 MG/DL (74-106); Osmolality,Calculated 274.8 MOS/KG (273-304); Total Protein 6.2 G/DL (6.4-8.3)
[2019-04-16] MEDS: COENZYME Q10 100 MG CAPSULE PO SCH ×2 (09:05→21:17)
[2019-04-16] MEDS: DOCUSATE SODIUM 100 MG CAPSULE PO SCH (09:05)
[2019-04-16] MEDS: AMIODARONE 200 MG TABLET PO SCH ×2 (09:06→21:17)
[2019-04-16] MEDS: APIXABAN 5 MG TABLET PO SCH ×2 (09:07→21:19)
[2019-04-16] MEDS: methylPREDNISolone 4 MG TABLET PO SCH (09:08)
[2019-04-16] MEDS: FOLIC ACID 0.4 MG TABLET PO SCH (09:09)
[2019-04-16] MEDS: MONTELUKAST 10 MG TABLET PO SCH (09:11)
[2019-04-16] MEDS: CYANOCOBALAMIN 500 MCG TABLET PO SCH ×2 (09:13→21:22)
[2019-04-16] MEDS: ASCORBIC ACID 500 MG TABLET PO SCH ×2 (09:14→21:22)
[2019-04-16] MEDS: POTASSIUM CHLORIDE 20 MEQ TABLET PO PRN ×4 (09:15→22:57)
[2019-04-16] MEDS: LOSARTAN 25 MG TABLET PO SCH (09:18)
[2019-04-16] MEDS: guaiFENesin/DM ER 600-30 MG TABLET PO SCH ×2 (10:20→21:20)
[2019-04-16] MEDS: oxyCODONE/ACETAMINOPHEN 5-325 MG TABLET PO PRN ×2 (10:48→14:45)
[2019-04-16] MEDS: EPLERENONE 25 MG TABLET PO SCH (12:02)
[2019-04-16] MEDS: ATORVASTATIN 80 MG TABLET PO SCH (18:35)
[2019-04-16] MEDS: FERROUS SULFATE 325 MG TABLET PO SCH (21:20)
[2019-04-16] MEDS: GABAPENTIN 300 MG CAPSULE PO SCH (21:20)
[2019-04-16] MEDS: QUEtiapine 25 MG TABLET PO SCH (21:21)
[2019-04-16] MEDS: ZALEPLON 5 MG CAPSULE PO PRN (21:22)
[2019-04-17] MEDS: oxyCODONE/ACETAMINOPHEN 5-325 MG TABLET PO PRN (02:42)
[2019-04-17 05:36] LABS: Basophils # 0.1 10*3/uL (0.0-0.2); Basophils % 0.6 % (0.0-0.8); Eosinophils # 0.3 10*3/uL (0.0-0.87); Eosinophils % 2.8 % (0.00-10.9); Hematocrit 30.2 VOL% (42.0-52.0); Hemoglobin 9.7 GM/DL (14.0-18.0); Immature Granulocytes % 1.8 %; Immature Granulocytes Absolute 0.17 #; Lymphocytes % 10.5 % (21.2-54.2); Mean Corpuscular HGB Conc 32.1 GM/DL (32-36); Mean Corpuscular Volume 88.3 FL (87-102); Mean Platelet Volume 10.4 FL (9.6-12.0); Monocytes % 10.6 % (1.7-12.7); NRBC # 0.02 10*3/uL; Neutrophils % 73.7 % (38.7-73.9); Platelet Count 200 T/CUMM (130-400); Red Blood Count 3.42 MC/CUMM (3.8-5.5); Red Cell Distribution Width 19.7 % (9.3-17.3); White Blood Count 9.4 T/CUMM (4-12)
[2019-04-17 06:03] LABS: Calcium 8.6 MG/DL (8.5-10.1); Osmolality,Calculated 270.2 MOS/KG (273-304)
[2019-04-17] MEDS: ASPIRIN EC 81 MG TABLET PO SCH (06:54)
[2019-04-17] MEDS: THYROID 60 MG TABLET PO SCH (06:54)
[2019-04-17] MEDS: ISOSORBIDE MONONITRATE 60 MG TABLET PO SCH (06:55)
[2019-04-17] MEDS: carvediloL 12.5 MG TABLET PO SCH ×2 (06:55→21:51)
[2019-04-17] MEDS: FUROSEMIDE 40 MG TABLET PO SCH (06:55)
[2019-04-17] MEDS: PANTOPRAZOLE 20 MG TABLET PO SCH ×2 (06:55→21:52)
[2019-04-17] MEDS: RANOLAZINE 500 MG TABLET PO SCH ×2 (06:56→21:50)
[2019-04-17] MEDS: SERTRALINE 100 MG TABLET PO SCH (06:56)
[2019-04-17] MEDS: EPLERENONE 25 MG TABLET PO SCH (09:26)
[2019-04-17] MEDS: guaiFENesin/DM ER 600-30 MG TABLET PO SCH ×2 (09:26→21:52)
[2019-04-17] MEDS: LOSARTAN 25 MG TABLET PO SCH (09:27)
[2019-04-17] MEDS: ASCORBIC ACID 500 MG TABLET PO SCH ×2 (09:27→21:51)
[2019-04-17] MEDS: FOLIC ACID 0.4 MG TABLET PO SCH (09:27)
[2019-04-17] MEDS: DOCUSATE SODIUM 100 MG CAPSULE PO SCH (09:28)
[2019-04-17] MEDS: CYANOCOBALAMIN 500 MCG TABLET PO SCH ×2 (09:28→21:50)
[2019-04-17] MEDS: AMIODARONE 200 MG TABLET PO SCH ×2 (09:28→21:52)
[2019-04-17] MEDS: COENZYME Q10 100 MG CAPSULE PO SCH ×2 (09:29→21:51)
[2019-04-17] MEDS: MONTELUKAST 10 MG TABLET PO SCH (09:29)
[2019-04-17] MEDS: methylPREDNISolone 4 MG TABLET PO SCH (09:29)
[2019-04-17] MEDS: APIXABAN 5 MG TABLET PO SCH ×2 (09:29→21:52)
[2019-04-17] MEDS ORDERED: MAGNESIUM SULF RIDER 2 GM in PREMIX 1 EACH IV ONE (09:37)
[2019-04-17] MEDS: IBUPROFEN 800 MG TABLET PO PRN ×2 (14:24→21:51)
[2019-04-17] MEDS: ZALEPLON 5 MG CAPSULE PO PRN ×2 (21:51→22:30)
[2019-04-17] MEDS: QUEtiapine 25 MG TABLET PO SCH (21:51)
[2019-04-17] MEDS: FERROUS SULFATE 325 MG TABLET PO SCH (21:52)
[2019-04-17] MEDS: GABAPENTIN 300 MG CAPSULE PO SCH (21:52)
[2019-04-17] MEDS: ATORVASTATIN 80 MG TABLET PO SCH (21:52)
[2019-04-18 06:03] LABS: Basophils % 0.4 % (0.0-0.8); Eosinophils # 0.3 10*3/uL (0.0-0.87); Eosinophils % 3.2 % (0.00-10.9); Hematocrit 28.5 VOL% (42.0-52.0); Hemoglobin 9.2 GM/DL (14.0-18.0); Immature Granulocytes % 1.9 %; Immature Granulocytes Absolute 0.18 #; Lymphocytes # 0.9 10*3/uL (1.4-4.0); Lymphocytes % 9.7 % (21.2-54.2); Mean Corpuscular HGB Conc 32.3 GM/DL (32-36); Mean Corpuscular Volume 89.3 FL (87-102); Mean Platelet Volume 10.2 FL (9.6-12.0); Monocytes % 9.4 % (1.7-12.7); Neutrophils % 75.4 % (38.7-73.9); Platelet Count 193 T/CUMM (130-400); Red Blood Count 3.19 MC/CUMM (3.8-5.5); White Blood Count 9.4 T/CUMM (4-12)
[2019-04-18 06:25] LABS: Alanine Aminotransferase 50 U/L (16-61); Albumin 2.2 G/DL (3.4-5.0); Alkaline Phosphatase 68 U/L (45-117); Aspartate Amino Transferase 38 U/L (0-37); Bilirubin,Indirect 0.5 MG/DL (0.0-1.0); Blood Urea Nitrogen 21 MG/DL (7-18); Calcium 8.5 MG/DL (8.5-10.1); Estimated Glom Filtration Rate 116 ML/MIN; Glucose 90 MG/DL (74-106); Osmolality,Calculated 277.7 MOS/KG (273-304); Total Protein 5.7 G/DL (6.4-8.3)
[2019-04-18 06:26] LABS: Troponin I 0.421 NG/ML (0.00-0.045)
[2019-04-18] MEDS: THYROID 60 MG TABLET PO SCH (06:35)
[2019-04-18] MEDS: guaiFENesin/DM ER 600-30 MG TABLET PO SCH ×2 (08:42→20:47)
[2019-04-18] MEDS: EPLERENONE 25 MG TABLET PO SCH (08:42)
[2019-04-18] MEDS: CYANOCOBALAMIN 500 MCG TABLET PO SCH ×2 (08:42→20:45)
[2019-04-18] MEDS: SERTRALINE 100 MG TABLET PO SCH (08:43)
[2019-04-18] MEDS: ASPIRIN EC 81 MG TABLET PO SCH (08:43)
[2019-04-18] MEDS: LOSARTAN 25 MG TABLET PO SCH (08:44)
[2019-04-18] MEDS: COENZYME Q10 100 MG CAPSULE PO SCH ×2 (08:44→20:46)
[2019-04-18] MEDS: methylPREDNISolone 4 MG TABLET PO SCH (08:44)
[2019-04-18] MEDS: ASCORBIC ACID 500 MG TABLET PO SCH ×2 (08:44→20:45)
[2019-04-18] MEDS: DOCUSATE SODIUM 100 MG CAPSULE PO SCH (08:44)
[2019-04-18] MEDS: RANOLAZINE 500 MG TABLET PO SCH ×2 (08:44→20:46)
[2019-04-18] MEDS: FOLIC ACID 0.4 MG TABLET PO SCH (08:45)
[2019-04-18] MEDS: carvediloL 12.5 MG TABLET PO SCH ×2 (08:45→20:46)
[2019-04-18] MEDS: FUROSEMIDE 40 MG TABLET PO SCH (08:45)
[2019-04-18] MEDS: AMIODARONE 200 MG TABLET PO SCH ×2 (08:45→20:46)
[2019-04-18] MEDS: PANTOPRAZOLE 20 MG TABLET PO SCH ×2 (08:45→20:45)
[2019-04-18] MEDS: APIXABAN 5 MG TABLET PO SCH ×2 (08:45→20:47)
[2019-04-18] MEDS: MONTELUKAST 10 MG TABLET PO SCH (08:45)
[2019-04-18] MEDS: ISOSORBIDE MONONITRATE 60 MG TABLET PO SCH (09:15)
[2019-04-18] MEDS: oxyCODONE/ACETAMINOPHEN 5-325 MG TABLET PO PRN ×2 (12:00→17:26)
[2019-04-18] MEDS: IBUPROFEN 800 MG TABLET PO PRN ×2 (14:06→20:47)
[2019-04-18] MEDS: QUEtiapine 25 MG TABLET PO SCH (20:45)
[2019-04-18] MEDS: GABAPENTIN 300 MG CAPSULE PO SCH (20:46)
[2019-04-18] MEDS: ATORVASTATIN 80 MG TABLET PO SCH (20:46)
[2019-04-18] MEDS: ZALEPLON 5 MG CAPSULE PO PRN (20:47)
[2019-04-18] MEDS: FERROUS SULFATE 325 MG TABLET PO SCH (20:47)
[2019-04-19 05:44] LABS: Basophils % 0.3 % (0.0-0.8); Eosinophils # 0.3 10*3/uL (0.0-0.87); Eosinophils % 3.2 % (0.00-10.9); Hematocrit 28.2 VOL% (42.0-52.0); Hemoglobin 8.9 GM/DL (14.0-18.0); Immature Granulocytes % 1.6 %; Immature Granulocytes Absolute 0.16 #; Lymphocytes # 1.1 10*3/uL (1.4-4.0); Lymphocytes % 10.6 % (21.2-54.2); Mean Corpuscular HGB Conc 31.6 GM/DL (32-36); Mean Corpuscular Volume 89.5 FL (87-102); Mean Platelet Volume 10.2 FL (9.6-12.0); Monocytes % 7.1 % (1.7-12.7); Neutrophils % 77.2 % (38.7-73.9); Platelet Count 215 T/CUMM (130-400); Red Blood Count 3.15 MC/CUMM (3.8-5.5); Red Cell Distribution Width 20.3 % (9.3-17.3); White Blood Count 9.9 T/CUMM (4-12)
[2019-04-19 06:00] LABS: Alanine Aminotransferase 51 U/L (16-61); Albumin 2.1 G/DL (3.4-5.0); Alkaline Phosphatase 72 U/L (45-117); Aspartate Amino Transferase 38 U/L (0-37); Bilirubin,Indirect 0.3 MG/DL (0.0-1.0); Blood Urea Nitrogen 26 MG/DL (7-18); Calcium 8.3 MG/DL (8.5-10.1); Estimated Glom Filtration Rate 113 ML/MIN; Glucose 87 MG/DL (74-106); Osmolality,Calculated 276.8 MOS/KG (273-304); Total Protein 5.7 G/DL (6.4-8.3)
[2019-04-19 06:03] LABS: Troponin I 0.317 NG/ML (0.00-0.045)
[2019-04-19] MEDS: THYROID 60 MG TABLET PO SCH (06:15)
[2019-04-19] MEDS: AMIODARONE 200 MG TABLET PO SCH ×2 (09:15→22:19)
[2019-04-19] MEDS: ASCORBIC ACID 500 MG TABLET PO SCH ×2 (09:15→22:19)
[2019-04-19] MEDS: EPLERENONE 25 MG TABLET PO SCH (09:16)
[2019-04-19] MEDS: CYANOCOBALAMIN 500 MCG TABLET PO SCH ×2 (09:16→22:19)
[2019-04-19] MEDS: DOCUSATE SODIUM 100 MG CAPSULE PO SCH (09:16)
[2019-04-19] MEDS: guaiFENesin/DM ER 600-30 MG TABLET PO SCH ×2 (09:16→22:21)
[2019-04-19] MEDS: ISOSORBIDE MONONITRATE 60 MG TABLET PO SCH (09:16)
[2019-04-19] MEDS: APIXABAN 5 MG TABLET PO SCH ×2 (09:16→22:21)
[2019-04-19] MEDS: FOLIC ACID 0.4 MG TABLET PO SCH (09:16)
[2019-04-19] MEDS: methylPREDNISolone 4 MG TABLET PO SCH (09:17)
[2019-04-19] MEDS: MONTELUKAST 10 MG TABLET PO SCH (09:17)
[2019-04-19] MEDS: SERTRALINE 100 MG TABLET PO SCH (09:17)
[2019-04-19] MEDS: LOSARTAN 25 MG TABLET PO SCH (09:17)
[2019-04-19] MEDS: ASPIRIN EC 81 MG TABLET PO SCH (09:17)
[2019-04-19] MEDS: FUROSEMIDE 40 MG TABLET PO SCH (09:17)
[2019-04-19] MEDS: IBUPROFEN 800 MG TABLET PO PRN ×3 (09:17→22:20)
[2019-04-19] MEDS: carvediloL 12.5 MG TABLET PO SCH ×2 (09:17→22:20)
[2019-04-19] MEDS: RANOLAZINE 500 MG TABLET PO SCH ×2 (09:17→22:18)
[2019-04-19] MEDS: COENZYME Q10 100 MG CAPSULE PO SCH ×2 (09:19→22:20)
[2019-04-19] MEDS: PANTOPRAZOLE 20 MG TABLET PO SCH ×2 (09:19→22:21)
[2019-04-19] MEDS ORDERED: POTASSIUM CHLORIDE 20 MEQ TABLET PO ONE (12:37)
[2019-04-19] MEDS ORDERED: CETIRIZINE 10 MG TABLET PO PRN (13:29)
[2019-04-19] MEDS: ALBUTEROL/IPRATROPIUM 3 ML NEB RESP TX SCH ×2 (13:54→19:53)
[2019-04-19] MEDS: ZALEPLON 5 MG CAPSULE PO PRN (22:19)
[2019-04-19] MEDS: ATORVASTATIN 80 MG TABLET PO SCH (22:19)
[2019-04-19] MEDS: QUEtiapine 25 MG TABLET PO SCH (22:20)
[2019-04-19] MEDS: GABAPENTIN 300 MG CAPSULE PO SCH (22:20)
[2019-04-19] MEDS: FERROUS SULFATE 325 MG TABLET PO SCH (22:21)
[2019-04-20] MEDS: ALBUTEROL/IPRATROPIUM 3 ML NEB RESP TX SCH ×4 (00:50→19:35)
[2019-04-20] MEDS: THYROID 60 MG TABLET PO SCH (05:32)
[2019-04-20 05:48] LABS: Basophils % 0.3 % (0.0-0.8); Eosinophils # 0.3 10*3/uL (0.0-0.87); Eosinophils % 3.3 % (0.00-10.9); Hematocrit 29.1 VOL% (42.0-52.0); Hemoglobin 9.4 GM/DL (14.0-18.0); Immature Granulocytes % 1.3 %; Immature Granulocytes Absolute 0.11 #; Lymphocytes # 1.1 10*3/uL (1.4-4.0); Lymphocytes % 12.4 % (21.2-54.2); Mean Corpuscular HGB Conc 32.3 GM/DL (32-36); Mean Corpuscular Volume 87.7 FL (87-102); Mean Platelet Volume 10.3 FL (9.6-12.0); Monocytes % 8.3 % (1.7-12.7); Neutrophils % 74.4 % (38.7-73.9); Platelet Count 255 T/CUMM (130-400); Red Blood Count 3.32 MC/CUMM (3.8-5.5); Red Cell Distribution Width 20.1 % (9.3-17.3); White Blood Count 8.6 T/CUMM (4-12)
[2019-04-20 06:02] LABS: Calcium 8.6 MG/DL (8.5-10.1); Osmolality,Calculated 273.1 MOS/KG (273-304)
[2019-04-20] MEDS: FOLIC ACID 0.4 MG TABLET PO SCH (10:07)
[2019-04-20] MEDS: RANOLAZINE 500 MG TABLET PO SCH ×2 (10:07→20:27)
[2019-04-20] MEDS: MONTELUKAST 10 MG TABLET PO SCH (10:07)
[2019-04-20] MEDS: CYANOCOBALAMIN 500 MCG TABLET PO SCH ×2 (10:08→20:27)
[2019-04-20] MEDS: PANTOPRAZOLE 20 MG TABLET PO SCH ×2 (10:09→20:26)
[2019-04-20] MEDS: methylPREDNISolone 4 MG TABLET PO SCH (10:09)
[2019-04-20] MEDS: EPLERENONE 25 MG TABLET PO SCH (10:09)
[2019-04-20] MEDS: ASPIRIN EC 81 MG TABLET PO SCH (10:09)
[2019-04-20] MEDS: SERTRALINE 100 MG TABLET PO SCH (10:10)
[2019-04-20] MEDS: ASCORBIC ACID 500 MG TABLET PO SCH ×2 (10:10→20:29)
[2019-04-20] MEDS: APIXABAN 5 MG TABLET PO SCH ×2 (10:11→20:26)
[2019-04-20] MEDS: FUROSEMIDE 40 MG TABLET PO SCH (10:11)
[2019-04-20] MEDS: LOSARTAN 25 MG TABLET PO SCH (10:11)
[2019-04-20] MEDS: carvediloL 12.5 MG TABLET PO SCH ×2 (10:11→20:28)
[2019-04-20] MEDS: AMIODARONE 200 MG TABLET PO SCH ×2 (10:11→20:28)
[2019-04-20] MEDS: DOCUSATE SODIUM 100 MG CAPSULE PO SCH (10:11)
[2019-04-20] MEDS: COENZYME Q10 100 MG CAPSULE PO SCH ×2 (10:12→20:28)
[2019-04-20] MEDS: guaiFENesin/DM ER 600-30 MG TABLET PO SCH ×2 (10:12→20:27)
[2019-04-20] MEDS: POLYETHYLENE GLYCOL POWDER 17 GM PACK PO SCH (10:25)
[2019-04-20] MEDS: IBUPROFEN 800 MG TABLET PO PRN ×2 (10:27→20:28)
[2019-04-20] MEDS: POTASSIUM CHLORIDE 20 MEQ TABLET PO PRN (10:28)
[2019-04-20] MEDS ORDERED: POTASSIUM CHLORIDE 20 MEQ TABLET PO ONE (10:55)
[2019-04-20] MEDS: oxyCODONE/ACETAMINOPHEN 5-325 MG TABLET PO PRN (16:55)
[2019-04-20] MEDS: GABAPENTIN 300 MG CAPSULE PO SCH (20:26)
[2019-04-20] MEDS: ATORVASTATIN 80 MG TABLET PO SCH (20:28)
[2019-04-20] MEDS: FERROUS SULFATE 325 MG TABLET PO SCH (20:28)
[2019-04-20] MEDS: ZALEPLON 5 MG CAPSULE PO PRN (20:28)
[2019-04-20] MEDS: QUEtiapine 25 MG TABLET PO SCH (20:46)
[2019-04-21] MEDS: ALBUTEROL/IPRATROPIUM 3 ML NEB RESP TX SCH ×2 (00:01→07:12)
[2019-04-21] MEDS: THYROID 60 MG TABLET PO SCH (06:36)
[2019-04-21 06:47] LABS: Basophils % 0.3 % (0.0-0.8); Eosinophils # 0.2 10*3/uL (0.0-0.87); Eosinophils % 2.9 % (0.00-10.9); Hematocrit 29.7 VOL% (42.0-52.0); Hemoglobin 9.5 GM/DL (14.0-18.0); Immature Granulocytes Absolute 0.08 #; Mean Corpuscular Volume 87.9 FL (87-102); Mean Platelet Volume 9.7 FL (9.6-12.0); Monocytes % 8.1 % (1.7-12.7); Neutrophils % 75.7 % (38.7-73.9); Platelet Count 260 T/CUMM (130-400); Red Blood Count 3.38 MC/CUMM (3.8-5.5); Red Cell Distribution Width 19.9 % (9.3-17.3)
[2019-04-21 07:02] LABS: Calcium 8.3 MG/DL (8.5-10.1); Osmolality,Calculated 274.8 MOS/KG (273-304)
[2019-04-21] MEDS: oxyCODONE/ACETAMINOPHEN 5-325 MG TABLET PO PRN ×2 (07:26→13:24)
[2019-04-21 09:16] VITALS: BP 136/72
[2019-04-21] MEDS: DOCUSATE SODIUM 100 MG CAPSULE PO SCH (09:59)
[2019-04-21] MEDS: COENZYME Q10 100 MG CAPSULE PO SCH (09:59)
[2019-04-21] MEDS: AMIODARONE 200 MG TABLET PO SCH (10:00)
[2019-04-21] MEDS: FOLIC ACID 0.4 MG TABLET PO SCH (10:01)
[2019-04-21] MEDS: FUROSEMIDE 40 MG TABLET PO SCH (10:04)
[2019-04-21] MEDS: guaiFENesin/DM ER 600-30 MG TABLET PO SCH (10:05)
[2019-04-21] MEDS: PANTOPRAZOLE 20 MG TABLET PO SCH (10:06)
[2019-04-21] MEDS: EPLERENONE 25 MG TABLET PO SCH (10:06)
[2019-04-21] MEDS: CYANOCOBALAMIN 500 MCG TABLET PO SCH (10:06)
[2019-04-21] MEDS: RANOLAZINE 500 MG TABLET PO SCH (10:07)
[2019-04-21] MEDS: MONTELUKAST 10 MG TABLET PO SCH (10:07)
[2019-04-21] MEDS: LOSARTAN 25 MG TABLET PO SCH (10:08)
[2019-04-21] MEDS: APIXABAN 5 MG TABLET PO SCH (10:09)
[2019-04-21] MEDS: POTASSIUM CHLORIDE 20 MEQ TABLET PO PRN (10:10)
[2019-04-21] MEDS: ASCORBIC ACID 500 MG TABLET PO SCH (10:10)
[2019-04-21] MEDS: carvediloL 12.5 MG TABLET PO SCH (10:11)
[2019-04-21] MEDS: SERTRALINE 100 MG TABLET PO SCH (10:11)
[2019-04-21] MEDS: methylPREDNISolone 4 MG TABLET PO SCH (10:12)
[2019-04-21] MEDS: POLYETHYLENE GLYCOL POWDER 17 GM PACK PO SCH (10:12)
[2019-04-21] MEDS: ASPIRIN EC 81 MG TABLET PO SCH (10:12)
== END 2019-04-21 16:06 | disposition home health service (06) | DRG 236 ==
LOC: N.4E 08:34 → N.CVR 04-11 12:07 → N.ICU 04-12 07:28 → N.TELES 04-14 11:10

== ENCOUNTER 2019-04-28 10:07 | Inpatient (IN) ==
[2019-04-28] MEDS ORDERED: FUROSEMIDE 40 MG/4 ML VIAL IV STA (10:36)
[2019-04-28 10:46] LABS: Basophils # 0.1 10*3/uL (0.0-0.2); Basophils % 0.3 % (0.0-0.8); Eosinophils # 0.1 10*3/uL (0.0-0.87); Eosinophils % 0.7 % (0.00-10.9); Hematocrit 36.4 VOL% (42.0-52.0); Hemoglobin 11.9 GM/DL (14.0-18.0); Immature Granulocytes % 0.9 %; Immature Granulocytes Absolute 0.13 #; Lymphocytes # 0.6 10*3/uL (1.4-4.0); Mean Corpuscular HGB Conc 32.7 GM/DL (32-36); Mean Corpuscular Volume 85.4 FL (87-102); Mean Platelet Volume 8.8 FL (9.6-12.0); Neutrophils % 88.1 % (38.7-73.9); Platelet Count 490 T/CUMM (130-400); Red Blood Count 4.26 MC/CUMM (3.8-5.5); Red Cell Distribution Width 19.4 % (9.3-17.3); White Blood Count 14.6 T/CUMM (4-12)
[2019-04-28 11:02] LABS: Albumin 2.6 G/DL (3.4-5.0); Bilirubin,Total 0.9 MG/DL (0.2-1.0); Calcium 9.6 MG/DL (8.5-10.1); Osmolality,Calculated 251.8 MOS/KG (273-304); Total Protein 7.8 G/DL (6.4-8.3)
[2019-04-28 11:06] LABS: INR 1.3; PT Patient Result 13.7 SECS (9.6-12.2); Partial Thromboplastin Time 33.4 SECS (20.8-36.0)
[2019-04-28 11:14] LABS: Anisocytosis 1+; Band Neutrophils 3 % (0-10); Burr Cells 1+; Eosinophils 1 % (0-10); Lymphocytes 3 % (20-55); Platelet Estimate Normal; Poikilocytosis 1+; Segmented Neutrophils 87 % (50-85); Total Cells Counted 100
[2019-04-28] MEDS ORDERED: DOCUSATE SODIUM 100 MG CAPSULE PO PRN (11:24)
[2019-04-28] MEDS ORDERED: MAGNESIUM SULF RIDER 2 GM in PREMIX 1 EACH IV PRN (11:24)
[2019-04-28] MEDS ORDERED: ONDANSETRON 4 MG/2 ML VIAL IV PRN (11:24)
[2019-04-28] MEDS ORDERED: MAGNESIUM SULF RIDER 4 GM in PREMIX 1 EACH IV PRN (11:24)
[2019-04-28] MEDS ORDERED: ACETAMINOPHEN 325 MG TABLET PO PRN (11:24)
[2019-04-28 11:57] LABS: ABG Base Excess 3.2 MMOL/L (-2.5-2.5); ABG HCO3 27.2 MMOL/L (20-26); ABG Oxygen Saturation 93.1 % (95-100); ABG PCO2 33.8 MM HG (35-48); ABG PH 7.497 (7.35-7.45); ABG PO2 66.8 MM HG (80-95); ABG TCO2 23.3 MMOL/L (23-27); Allen Test Positive
[2019-04-28] MEDS ORDERED: ENOXAPARIN 40 MG/0.4 ML SYRINGE SUBCUT SCH (12:00)
[2019-04-28] MEDS ORDERED: NITROGLYCERIN SL 0.4 MG TABLET SL PRN (13:17)
[2019-04-28] MEDS ORDERED: metOLazone 2.5 MG TABLET PO PRN (13:17)
[2019-04-28 13:47] LABS: Troponin I 0.075 NG/ML (0.00-0.045)
[2019-04-28] MEDS: MORPHINE 4 MG/1 ML VIAL IV PRN (13:58)
[2019-04-28] MEDS: CLINDAMYCIN INJ 600 MG in PREMIX 1 EACH IV SCH ×2 (14:02→22:12)
[2019-04-28] MEDS: LEVOFLOXACIN INJ 500 MG in PREMIX 1 EACH IV SCH (14:31)
[2019-04-28] MEDS: FUROSEMIDE 40 MG/4 ML VIAL IV SCH (15:28)
[2019-04-28] MEDS: POTASSIUM CHLORIDE RIDER 10 MEQ in PREMIX 1 EACH IV PRN ×2 (16:57→17:57)
[2019-04-28] MEDS: carvediloL 12.5 MG TABLET PO SCH (16:58)
[2019-04-28] MEDS: PANTOPRAZOLE 40 MG TABLET PO SCH (18:00)
[2019-04-28] MEDS: oxyCODONE/ACETAMINOPHEN 5-325 MG TABLET PO PRN ×2 (18:01→23:39)
[2019-04-28 20:04] LABS: Troponin I 0.078 NG/ML (0.00-0.045)
[2019-04-28] MEDS: MAGNESIUM OXIDE 400 MG TABLET PO SCH (21:46)
[2019-04-28] MEDS: RANOLAZINE 500 MG TABLET PO SCH (21:46)
[2019-04-28] MEDS: COENZYME Q10 100 MG CAPSULE PO SCH (21:47)
[2019-04-28] MEDS: ATORVASTATIN 80 MG TABLET PO SCH (21:47)
[2019-04-28] MEDS: FERROUS SULFATE 325 MG TABLET PO SCH (21:47)
[2019-04-28] MEDS: ASCORBIC ACID 500 MG TABLET PO SCH (21:47)
[2019-04-28] MEDS: CHOLECALCIFEROL 1,000 UNIT TABLET PO SCH (21:48)
[2019-04-28] MEDS: PYRIDOXINE 100 MG TABLET PO SCH (21:48)
[2019-04-28] MEDS: APIXABAN 5 MG TABLET PO SCH (21:48)
[2019-04-28] MEDS: GABAPENTIN 300 MG CAPSULE PO SCH (21:48)
[2019-04-28] MEDS: CYANOCOBALAMIN 500 MCG TABLET PO SCH (21:48)
[2019-04-28] MEDS: AMIODARONE 200 MG TABLET PO SCH (21:49)
[2019-04-28] MEDS: POTASSIUM CHLORIDE 20 MEQ TABLET PO SCH (21:49)
[2019-04-28] MEDS: DOCUSATE SODIUM 100 MG CAPSULE PO SCH (22:12)
[2019-04-29] MEDS: CLINDAMYCIN INJ 600 MG in PREMIX 1 EACH IV SCH ×4 (02:37→21:18)
[2019-04-29 05:48] LABS: Basophils # 0.1 10*3/uL (0.0-0.2); Basophils % 0.5 % (0.0-0.8); Eosinophils # 0.2 10*3/uL (0.0-0.87); Eosinophils % 1.5 % (0.00-10.9); Hematocrit 31.7 VOL% (42.0-52.0); Hemoglobin 10.4 GM/DL (14.0-18.0); Immature Granulocytes % 0.9 %; Immature Granulocytes Absolute 0.11 #; Lymphocytes # 0.8 10*3/uL (1.4-4.0); Lymphocytes % 6.5 % (21.2-54.2); Mean Corpuscular HGB Conc 32.8 GM/DL (32-36); Mean Corpuscular Volume 85.2 FL (87-102); Monocytes % 8.4 % (1.7-12.7); Neutrophils % 82.2 % (38.7-73.9); Platelet Count 392 T/CUMM (130-400); Red Blood Count 3.72 MC/CUMM (3.8-5.5); Red Cell Distribution Width 19.7 % (9.3-17.3); White Blood Count 11.6 T/CUMM (4-12)
[2019-04-29 06:06] LABS: Troponin I 0.064 NG/ML (0.00-0.045)
[2019-04-29 06:06] LABS: Albumin 2.1 G/DL (3.4-5.0); Bilirubin,Total 1.4 MG/DL (0.2-1.0); Calcium 8.8 MG/DL (8.5-10.1); Osmolality,Calculated 253.5 MOS/KG (273-304); Total Protein 6.6 G/DL (6.4-8.3)
[2019-04-29] MEDS: ASPIRIN EC 81 MG TABLET PO SCH (06:08)
[2019-04-29] MEDS: PANTOPRAZOLE 40 MG TABLET PO SCH ×3 (06:08→21:17)
[2019-04-29] MEDS: THYROID 60 MG TABLET PO SCH (06:08)
[2019-04-29] MEDS: POTASSIUM CHLORIDE RIDER 10 MEQ in PREMIX 1 EACH IV PRN (06:27)
[2019-04-29] MEDS: FUROSEMIDE 40 MG/4 ML VIAL IV SCH ×2 (07:26→16:06)
[2019-04-29] MEDS: carvediloL 12.5 MG TABLET PO SCH ×2 (07:34→16:04)
[2019-04-29] MEDS: POLYETHYLENE GLYCOL POWDER 17 GM PACK PO SCH ×2 (08:39→21:19)
[2019-04-29] MEDS: COENZYME Q10 100 MG CAPSULE PO SCH ×2 (08:40→21:39)
[2019-04-29] MEDS: EPLERENONE 25 MG TABLET PO SCH (08:40)
[2019-04-29] MEDS: AMIODARONE 200 MG TABLET PO SCH ×2 (08:40→21:15)
[2019-04-29] MEDS: FOLIC ACID 0.4 MG TABLET PO SCH (08:40)
[2019-04-29] MEDS: methylPREDNISolone 4 MG TABLET PO SCH (08:40)
[2019-04-29] MEDS: RANOLAZINE 500 MG TABLET PO SCH ×2 (08:41→21:15)
[2019-04-29] MEDS: SERTRALINE 100 MG TABLET PO SCH (08:41)
[2019-04-29] MEDS: POTASSIUM CHLORIDE 20 MEQ TABLET PO SCH ×2 (08:41→21:38)
[2019-04-29] MEDS: APIXABAN 5 MG TABLET PO SCH ×2 (08:42→21:16)
[2019-04-29] MEDS: CYANOCOBALAMIN 500 MCG TABLET PO SCH ×2 (08:42→21:39)
[2019-04-29] MEDS: ASCORBIC ACID 500 MG TABLET PO SCH ×2 (08:43→21:17)
[2019-04-29] MEDS: DOCUSATE SODIUM 100 MG CAPSULE PO SCH ×2 (08:43→21:19)
[2019-04-29] MEDS: CHOLECALCIFEROL 1,000 UNIT TABLET PO SCH ×2 (08:43→21:16)
[2019-04-29] MEDS: MONTELUKAST 10 MG TABLET PO SCH (08:43)
[2019-04-29] MEDS ORDERED: LOSARTAN 25 MG TABLET PO SCH (09:00)
[2019-04-29 09:44] LABS: Albumin 2.2 G/DL (3.4-5.0); Bilirubin,Total 1.1 MG/DL (0.2-1.0); Calcium 8.9 MG/DL (8.5-10.1); Osmolality,Calculated 255.5 MOS/KG (273-304); Total Protein 6.7 G/DL (6.4-8.3)
[2019-04-29] MEDS ORDERED: POTASSIUM CHLORIDE 20 MEQ TABLET PO ONE (11:22)
[2019-04-29] MEDS: LEVOFLOXACIN INJ 500 MG in PREMIX 1 EACH IV SCH (12:34)
[2019-04-29] MEDS: oxyCODONE/ACETAMINOPHEN 5-325 MG TABLET PO PRN (17:20)
[2019-04-29] MEDS ORDERED: ZOLPIDEM 5 MG TABLET PO SCH (21:00)
[2019-04-29] MEDS: MAGNESIUM OXIDE 400 MG TABLET PO SCH (21:15)
[2019-04-29] MEDS: PYRIDOXINE 100 MG TABLET PO SCH (21:15)
[2019-04-29] MEDS: FERROUS SULFATE 325 MG TABLET PO SCH (21:16)
[2019-04-29] MEDS: GABAPENTIN 300 MG CAPSULE PO SCH (21:17)
[2019-04-29] MEDS: ATORVASTATIN 80 MG TABLET PO SCH (21:39)
[2019-04-30] MEDS: oxyCODONE/ACETAMINOPHEN 5-325 MG TABLET PO PRN ×2 (00:52→18:09)
[2019-04-30] MEDS: CLINDAMYCIN INJ 600 MG in PREMIX 1 EACH IV SCH ×4 (01:31→20:48)
[2019-04-30] MEDS: MORPHINE 4 MG/1 ML VIAL IV PRN (04:53)
[2019-04-30 05:44] LABS: Basophils % 0.2 % (0.0-0.8); Eosinophils # 0.1 10*3/uL (0.0-0.87); Hematocrit 30.5 VOL% (42.0-52.0); Hemoglobin 10.2 GM/DL (14.0-18.0); Immature Granulocytes % 1.4 %; Immature Granulocytes Absolute 0.17 #; Lymphocytes # 0.9 10*3/uL (1.4-4.0); Lymphocytes % 7.1 % (21.2-54.2); Mean Corpuscular HGB Conc 33.4 GM/DL (32-36); Mean Corpuscular Volume 84.3 FL (87-102); Mean Platelet Volume 8.9 FL (9.6-12.0); Monocytes % 8.6 % (1.7-12.7); Neutrophils % 81.7 % (38.7-73.9); Platelet Count 413 T/CUMM (130-400); Red Blood Count 3.62 MC/CUMM (3.8-5.5); Red Cell Distribution Width 19.9 % (9.3-17.3); White Blood Count 12.3 T/CUMM (4-12)
[2019-04-30] MEDS ORDERED: FUROSEMIDE 80 MG TABLET PO SCH (09:00)
[2019-04-30] MEDS: RANOLAZINE 500 MG TABLET PO SCH ×2 (09:01→20:51)
[2019-04-30] MEDS: ASPIRIN EC 81 MG TABLET PO SCH (09:01)
[2019-04-30] MEDS: EPLERENONE 25 MG TABLET PO SCH (09:01)
[2019-04-30] MEDS: FOLIC ACID 0.4 MG TABLET PO SCH (09:01)
[2019-04-30] MEDS: SERTRALINE 100 MG TABLET PO SCH (09:02)
[2019-04-30] MEDS: THYROID 60 MG TABLET PO SCH (09:02)
[2019-04-30] MEDS: AMIODARONE 200 MG TABLET PO SCH ×2 (09:03→20:53)
[2019-04-30] MEDS: CHOLECALCIFEROL 1,000 UNIT TABLET PO SCH ×2 (09:03→20:54)
[2019-04-30] MEDS: POTASSIUM CHLORIDE 20 MEQ TABLET PO SCH ×2 (09:03→20:49)
[2019-04-30] MEDS: methylPREDNISolone 4 MG TABLET PO SCH (09:04)
[2019-04-30] MEDS: MONTELUKAST 10 MG TABLET PO SCH (09:04)
[2019-04-30] MEDS: carvediloL 12.5 MG TABLET PO SCH ×2 (09:04→16:04)
[2019-04-30] MEDS: DOCUSATE SODIUM 100 MG CAPSULE PO SCH ×2 (09:04→20:51)
[2019-04-30] MEDS: CYANOCOBALAMIN 500 MCG TABLET PO SCH ×2 (09:04→20:57)
[2019-04-30] MEDS: ASCORBIC ACID 500 MG TABLET PO SCH ×2 (09:04→20:50)
[2019-04-30] MEDS: APIXABAN 5 MG TABLET PO SCH ×2 (09:05→20:52)
[2019-04-30] MEDS: POLYETHYLENE GLYCOL POWDER 17 GM PACK PO SCH (09:05)
[2019-04-30] MEDS: PANTOPRAZOLE 40 MG TABLET PO SCH ×3 (09:06→20:52)
[2019-04-30] MEDS: COENZYME Q10 100 MG CAPSULE PO SCH ×2 (09:06→20:57)
[2019-04-30] MEDS ORDERED: BISACODYL 10 MG SUPP RECTAL ONE (10:28)
[2019-04-30] MEDS: metOLazone 2.5 MG TABLET PO SCH (10:47)
[2019-04-30] MEDS ORDERED: ALBUTEROL/IPRATROPIUM 3 ML NEB RESP TX ONE (11:40)
[2019-04-30] MEDS ORDERED: methylPREDNISolone SOD SUC 125 MG/2 ML VIAL IV ONE (11:50)
[2019-04-30] MEDS: LEVOFLOXACIN INJ 500 MG in PREMIX 1 EACH IV SCH (13:23)
[2019-04-30] MEDS: ALBUTEROL/IPRATROPIUM 3 ML NEB RESP TX SCH ×2 (13:38→19:30)
[2019-04-30] MEDS ORDERED: TUBERCULIN SKIN TEST 0.1 ML SYRINGE INTRADERM ONE (14:59)
[2019-04-30] MEDS: FERROUS SULFATE 325 MG TABLET PO SCH (20:50)
[2019-04-30] MEDS: ATORVASTATIN 80 MG TABLET PO SCH (20:53)
[2019-04-30] MEDS: PYRIDOXINE 100 MG TABLET PO SCH (20:53)
[2019-04-30] MEDS: GABAPENTIN 300 MG CAPSULE PO SCH (20:54)
[2019-04-30] MEDS: MAGNESIUM OXIDE 400 MG TABLET PO SCH (20:54)
[2019-04-30] MEDS: ZOLPIDEM 5 MG TABLET PO PRN (20:55)
[2019-05-01] MEDS: ALBUTEROL/IPRATROPIUM 3 ML NEB RESP TX SCH ×4 (00:12→19:44)
[2019-05-01] MEDS: CLINDAMYCIN INJ 600 MG in PREMIX 1 EACH IV SCH ×4 (02:41→20:28)
[2019-05-01 05:07] LABS: Basophils % 0.1 % (0.0-0.8); Hematocrit 29.8 VOL% (42.0-52.0); Immature Granulocytes % 0.8 %; Immature Granulocytes Absolute 0.09 #; Lymphocytes # 0.8 10*3/uL (1.4-4.0); Lymphocytes % 6.9 % (21.2-54.2); Mean Corpuscular HGB Conc 33.6 GM/DL (32-36); Mean Corpuscular Volume 83.2 FL (87-102); Mean Platelet Volume 9.2 FL (9.6-12.0); Neutrophils % 86.2 % (38.7-73.9); Platelet Count 380 T/CUMM (130-400); Red Blood Count 3.58 MC/CUMM (3.8-5.5); Red Cell Distribution Width 19.6 % (9.3-17.3); White Blood Count 11.7 T/CUMM (4-12)
[2019-05-01 05:43] LABS: Calcium 8.7 MG/DL (8.5-10.1); Osmolality,Calculated 251.1 MOS/KG (273-304)
[2019-05-01 05:47] LABS: Albumin 2.2 G/DL (3.4-5.0); Bilirubin,Total 1.5 MG/DL (0.2-1.0); Calcium 8.4 MG/DL (8.5-10.1); Osmolality,Calculated 253.8 MOS/KG (273-304); Total Protein 5.8 G/DL (6.4-8.3)
[2019-05-01] MEDS ORDERED: FUROSEMIDE 80 MG TABLET PO SCH (09:00)
[2019-05-01] MEDS: THYROID 60 MG TABLET PO SCH (09:49)
[2019-05-01] MEDS: EPLERENONE 25 MG TABLET PO SCH (09:49)
[2019-05-01] MEDS: RANOLAZINE 500 MG TABLET PO SCH ×2 (09:50→21:55)
[2019-05-01] MEDS: methylPREDNISolone 4 MG TABLET PO SCH (09:50)
[2019-05-01] MEDS: ASPIRIN EC 81 MG TABLET PO SCH (09:50)
[2019-05-01] MEDS: MONTELUKAST 10 MG TABLET PO SCH (09:51)
[2019-05-01] MEDS: PANTOPRAZOLE 40 MG TABLET PO SCH ×3 (09:51→20:28)
[2019-05-01] MEDS: COENZYME Q10 100 MG CAPSULE PO SCH ×2 (09:51→21:49)
[2019-05-01] MEDS: POLYETHYLENE GLYCOL POWDER 17 GM PACK PO SCH (09:51)
[2019-05-01] MEDS: CYANOCOBALAMIN 500 MCG TABLET PO SCH ×2 (09:51→21:56)
[2019-05-01] MEDS: SERTRALINE 100 MG TABLET PO SCH (09:52)
[2019-05-01] MEDS: FOLIC ACID 0.4 MG TABLET PO SCH (09:52)
[2019-05-01] MEDS: carvediloL 12.5 MG TABLET PO SCH ×2 (09:57→16:02)
[2019-05-01] MEDS: ASCORBIC ACID 500 MG TABLET PO SCH ×2 (09:57→21:57)
[2019-05-01] MEDS: DOCUSATE SODIUM 100 MG CAPSULE PO SCH ×2 (09:58→21:50)
[2019-05-01] MEDS: CHOLECALCIFEROL 1,000 UNIT TABLET PO SCH ×2 (09:58→21:57)
[2019-05-01] MEDS: oxyCODONE/ACETAMINOPHEN 5-325 MG TABLET PO PRN (09:59)
[2019-05-01] MEDS: POTASSIUM CHLORIDE 20 MEQ TABLET PO SCH ×2 (10:01→21:51)
[2019-05-01] MEDS: metOLazone 2.5 MG TABLET PO SCH (10:01)
[2019-05-01] MEDS: APIXABAN 5 MG TABLET PO SCH ×2 (10:04→21:50)
[2019-05-01] MEDS: LEVOFLOXACIN INJ 500 MG in PREMIX 1 EACH IV SCH (14:01)
[2019-05-01] MEDS: traMADol 50 MG TABLET PO PRN (14:31)
[2019-05-01] MEDS: DIGOXIN 0.125 MG TABLET PO SCH (16:01)
[2019-05-01] MEDS: FUROSEMIDE 40 MG/4 ML VIAL IV SCH (16:02)
[2019-05-01] MEDS: FERROUS SULFATE 325 MG TABLET PO SCH (21:51)
[2019-05-01] MEDS: MAGNESIUM OXIDE 400 MG TABLET PO SCH (21:54)
[2019-05-01] MEDS: ATORVASTATIN 80 MG TABLET PO SCH (21:54)
[2019-05-01] MEDS: GABAPENTIN 300 MG CAPSULE PO SCH (21:55)
[2019-05-01] MEDS: PYRIDOXINE 100 MG TABLET PO SCH (21:56)
[2019-05-01] MEDS: ZOLPIDEM 5 MG TABLET PO PRN (21:58)
[2019-05-02] MEDS: ALBUTEROL/IPRATROPIUM 3 ML NEB RESP TX SCH ×4 (00:15→19:55)
[2019-05-02] MEDS: CLINDAMYCIN INJ 600 MG in PREMIX 1 EACH IV SCH ×4 (00:38→19:58)
[2019-05-02 05:42] LABS: Basophils % 0.1 % (0.0-0.8); Eosinophils # 0.1 10*3/uL (0.0-0.87); Eosinophils % 0.5 % (0.00-10.9); Hematocrit 29.9 VOL% (42.0-52.0); Hemoglobin 10.1 GM/DL (14.0-18.0); Immature Granulocytes % 1.2 %; Immature Granulocytes Absolute 0.14 #; Lymphocytes # 0.8 10*3/uL (1.4-4.0); Lymphocytes % 6.7 % (21.2-54.2); Mean Corpuscular HGB Conc 33.8 GM/DL (32-36); Mean Corpuscular Volume 83.8 FL (87-102); Mean Platelet Volume 8.6 FL (9.6-12.0); Monocytes % 6.7 % (1.7-12.7); Neutrophils % 84.8 % (38.7-73.9); Platelet Count 327 T/CUMM (130-400); Red Blood Count 3.57 MC/CUMM (3.8-5.5); Red Cell Distribution Width 19.7 % (9.3-17.3); White Blood Count 11.7 T/CUMM (4-12)
[2019-05-02 06:02] LABS: Calcium 8.6 MG/DL (8.5-10.1); Osmolality,Calculated 254.8 MOS/KG (273-304)
[2019-05-02] MEDS: THYROID 60 MG TABLET PO SCH (06:03)
[2019-05-02] MEDS: ASPIRIN EC 81 MG TABLET PO SCH (06:03)
[2019-05-02 06:04] LABS: % Iron Saturation 11.6 % (18-50)
[2019-05-02] MEDS: PANTOPRAZOLE 40 MG TABLET PO SCH ×3 (06:04→18:17)
[2019-05-02 06:05] LABS: Bilirubin,Total 1.5 MG/DL (0.2-1.0); Calcium 8.8 MG/DL (8.5-10.1); Osmolality,Calculated 251.1 MOS/KG (273-304); Total Protein 6.2 G/DL (6.4-8.3)
[2019-05-02 06:44] LABS: Folate 23.5 NG/ML (5.4-24.0); Vitamin B12 > 2000 PG/ML (211-911)
[2019-05-02] MEDS: EPLERENONE 25 MG TABLET PO SCH (08:39)
[2019-05-02] MEDS: RANOLAZINE 500 MG TABLET PO SCH ×2 (08:39→21:16)
[2019-05-02] MEDS: FOLIC ACID 0.4 MG TABLET PO SCH (08:39)
[2019-05-02] MEDS: metOLazone 2.5 MG TABLET PO SCH (08:40)
[2019-05-02] MEDS: methylPREDNISolone 4 MG TABLET PO SCH (08:40)
[2019-05-02] MEDS: COENZYME Q10 100 MG CAPSULE PO SCH ×2 (08:40→21:16)
[2019-05-02] MEDS: POTASSIUM CHLORIDE 20 MEQ TABLET PO SCH ×2 (08:41→21:20)
[2019-05-02] MEDS: CHOLECALCIFEROL 1,000 UNIT TABLET PO SCH ×2 (08:41→21:19)
[2019-05-02] MEDS: CYANOCOBALAMIN 500 MCG TABLET PO SCH ×2 (08:42→21:18)
[2019-05-02] MEDS: ASCORBIC ACID 500 MG TABLET PO SCH ×2 (08:42→21:19)
[2019-05-02] MEDS: SERTRALINE 100 MG TABLET PO SCH (08:44)
[2019-05-02] MEDS: POLYETHYLENE GLYCOL POWDER 17 GM PACK PO SCH (08:44)
[2019-05-02] MEDS: APIXABAN 5 MG TABLET PO SCH ×2 (08:44→21:17)
[2019-05-02] MEDS: MONTELUKAST 10 MG TABLET PO SCH (08:44)
[2019-05-02] MEDS: carvediloL 12.5 MG TABLET PO SCH ×2 (08:44→17:13)
[2019-05-02] MEDS: FUROSEMIDE 40 MG/4 ML VIAL IV SCH ×2 (09:11→15:59)
[2019-05-02] MEDS: DOCUSATE SODIUM 100 MG CAPSULE PO SCH (09:15)
[2019-05-02] MEDS: traMADol 50 MG TABLET PO PRN (09:15)
[2019-05-02] MEDS ORDERED: POLYETHYLENE GLYCOL POWDER 17 GM PACK PO PRN (11:39)
[2019-05-02] MEDS ORDERED: POTASSIUM CHLORIDE 20 MEQ TABLET PO ONE (11:42)
[2019-05-02] MEDS: DIGOXIN 0.125 MG TABLET PO SCH (14:22)
[2019-05-02] MEDS: LEVOFLOXACIN INJ 500 MG in PREMIX 1 EACH IV SCH (15:05)
[2019-05-02] MEDS: PYRIDOXINE 100 MG TABLET PO SCH (21:16)
[2019-05-02] MEDS: MAGNESIUM OXIDE 400 MG TABLET PO SCH (21:18)
[2019-05-02] MEDS: ATORVASTATIN 80 MG TABLET PO SCH (21:21)
[2019-05-02] MEDS: GABAPENTIN 300 MG CAPSULE PO SCH (21:21)
[2019-05-02] MEDS: FERROUS SULFATE 325 MG TABLET PO SCH (21:21)
[2019-05-02] MEDS: ZOLPIDEM 5 MG TABLET PO PRN (21:22)
[2019-05-03] MEDS: ALBUTEROL/IPRATROPIUM 3 ML NEB RESP TX SCH ×4 (00:21→19:29)
[2019-05-03] MEDS: CLINDAMYCIN INJ 600 MG in PREMIX 1 EACH IV SCH ×3 (01:40→14:43)
[2019-05-03 04:44] LABS: Basophils % 0.2 % (0.0-0.8); Eosinophils # 0.1 10*3/uL (0.0-0.87); Eosinophils % 0.9 % (0.00-10.9); Hematocrit 31.2 VOL% (42.0-52.0); Hemoglobin 10.2 GM/DL (14.0-18.0); Immature Granulocytes % 1.1 %; Immature Granulocytes Absolute 0.11 #; Lymphocytes # 0.6 10*3/uL (1.4-4.0); Lymphocytes % 5.5 % (21.2-54.2); Mean Corpuscular HGB Conc 32.7 GM/DL (32-36); Mean Corpuscular Volume 85.5 FL (87-102); Mean Platelet Volume 9.1 FL (9.6-12.0); Monocytes % 8.5 % (1.7-12.7); Neutrophils % 83.8 % (38.7-73.9); Platelet Count 301 T/CUMM (130-400); Red Blood Count 3.65 MC/CUMM (3.8-5.5); Red Cell Distribution Width 19.7 % (9.3-17.3); White Blood Count 10.3 T/CUMM (4-12)
[2019-05-03 05:19] LABS: Bilirubin,Total 1.7 MG/DL (0.2-1.0); Calcium 8.6 MG/DL (8.5-10.1); Osmolality,Calculated 259.4 MOS/KG (273-304); Total Protein 6.1 G/DL (6.4-8.3)
[2019-05-03] MEDS ORDERED: COSYNTROPIN 0.25 MG VIAL IM ONE (06:00)
[2019-05-03] MEDS: THYROID 60 MG TABLET PO SCH (06:25)
[2019-05-03] MEDS: PANTOPRAZOLE 40 MG TABLET PO SCH ×3 (06:26→21:33)
[2019-05-03] MEDS: ASPIRIN EC 81 MG TABLET PO SCH (06:30)
[2019-05-03] MEDS: carvediloL 12.5 MG TABLET PO SCH ×2 (07:55→17:19)
[2019-05-03] MEDS: FUROSEMIDE 40 MG/4 ML VIAL IV SCH ×2 (07:56→17:19)
[2019-05-03] MEDS ORDERED: POTASSIUM CHLORIDE 20 MEQ TABLET PO PRN (08:47)
[2019-05-03] MEDS ORDERED: POTASSIUM CHLORIDE 20 MEQ TABLET PO ONE ×2 (08:47→12:04)
[2019-05-03] MEDS: traMADol 50 MG TABLET PO PRN (10:19)
[2019-05-03] MEDS: CYANOCOBALAMIN 500 MCG TABLET PO SCH ×2 (10:21→21:30)
[2019-05-03] MEDS: FOLIC ACID 0.4 MG TABLET PO SCH (10:21)
[2019-05-03] MEDS: ASCORBIC ACID 500 MG TABLET PO SCH ×2 (10:23→21:29)
[2019-05-03] MEDS: MONTELUKAST 10 MG TABLET PO SCH (10:23)
[2019-05-03] MEDS: SERTRALINE 100 MG TABLET PO SCH (10:23)
[2019-05-03] MEDS: APIXABAN 5 MG TABLET PO SCH ×2 (10:23→21:32)
[2019-05-03] MEDS: CHOLECALCIFEROL 1,000 UNIT TABLET PO SCH ×2 (10:23→21:31)
[2019-05-03] MEDS: EPLERENONE 25 MG TABLET PO SCH (10:24)
[2019-05-03] MEDS: methylPREDNISolone 4 MG TABLET PO SCH (10:24)
[2019-05-03] MEDS: COENZYME Q10 100 MG CAPSULE PO SCH ×2 (10:24→21:30)
[2019-05-03] MEDS: metOLazone 2.5 MG TABLET PO SCH (10:25)
[2019-05-03] MEDS: RANOLAZINE 500 MG TABLET PO SCH ×2 (10:25→21:29)
[2019-05-03] MEDS: POTASSIUM CHLORIDE 20 MEQ TABLET PO SCH ×2 (11:45→21:33)
[2019-05-03] MEDS: DIGOXIN 0.125 MG TABLET PO SCH (14:41)
[2019-05-03] MEDS: valACYclovir 500 MG TABLET PO SCH ×2 (14:42→21:31)
[2019-05-03] MEDS: LEVOFLOXACIN INJ 500 MG in PREMIX 1 EACH IV SCH (14:43)
[2019-05-03] MEDS: MAGNESIUM OXIDE 400 MG TABLET PO SCH (21:30)
[2019-05-03] MEDS: PYRIDOXINE 100 MG TABLET PO SCH (21:30)
[2019-05-03] MEDS: GABAPENTIN 300 MG CAPSULE PO SCH (21:30)
[2019-05-03] MEDS: FERROUS SULFATE 325 MG TABLET PO SCH (21:31)
[2019-05-03] MEDS: LOSARTAN 25 MG TABLET PO SCH (21:32)
[2019-05-03] MEDS: ZOLPIDEM 5 MG TABLET PO PRN (21:34)
[2019-05-04] MEDS: ALBUTEROL/IPRATROPIUM 3 ML NEB RESP TX SCH ×4 (00:13→20:05)
[2019-05-04] MEDS: THYROID 60 MG TABLET PO SCH (06:16)
[2019-05-04] MEDS: ASPIRIN EC 81 MG TABLET PO SCH (06:16)
[2019-05-04] MEDS: PANTOPRAZOLE 40 MG TABLET PO SCH ×3 (06:17→21:56)
[2019-05-04 06:31] LABS: Basophils % 0.2 % (0.0-0.8); Eosinophils # 0.3 10*3/uL (0.0-0.87); Eosinophils % 2.9 % (0.00-10.9); Hematocrit 30.3 VOL% (42.0-52.0); Hemoglobin 10.2 GM/DL (14.0-18.0); Immature Granulocytes % 0.7 %; Immature Granulocytes Absolute 0.07 #; Lymphocytes # 0.5 10*3/uL (1.4-4.0); Lymphocytes % 5.6 % (21.2-54.2); Mean Corpuscular HGB Conc 33.7 GM/DL (32-36); Mean Corpuscular Volume 84.4 FL (87-102); Mean Platelet Volume 8.7 FL (9.6-12.0); Monocytes % 8.8 % (1.7-12.7); Neutrophils % 81.8 % (38.7-73.9); Platelet Count 283 T/CUMM (130-400); Red Blood Count 3.59 MC/CUMM (3.8-5.5); Red Cell Distribution Width 19.6 % (9.3-17.3); White Blood Count 9.5 T/CUMM (4-12)
[2019-05-04 06:55] LABS: Albumin 1.8 G/DL (3.4-5.0); Calcium 8.7 MG/DL (8.5-10.1); Osmolality,Calculated 261.9 MOS/KG (273-304)
[2019-05-04] MEDS ORDERED: POTASSIUM CHLORIDE 20 MEQ TABLET PO ONE ×3 (08:13→11:54)
[2019-05-04] MEDS: valACYclovir 500 MG TABLET PO SCH ×3 (10:01→21:55)
[2019-05-04] MEDS: CYANOCOBALAMIN 500 MCG TABLET PO SCH ×2 (10:01→21:55)
[2019-05-04] MEDS: EPLERENONE 25 MG TABLET PO SCH (10:02)
[2019-05-04] MEDS: ASCORBIC ACID 500 MG TABLET PO SCH ×2 (10:02→21:55)
[2019-05-04] MEDS: CHOLECALCIFEROL 1,000 UNIT TABLET PO SCH ×2 (10:02→21:55)
[2019-05-04] MEDS: APIXABAN 5 MG TABLET PO SCH ×2 (10:03→21:55)
[2019-05-04] MEDS: carvediloL 12.5 MG TABLET PO SCH ×2 (10:03→17:09)
[2019-05-04] MEDS: LOSARTAN 25 MG TABLET PO SCH (10:03)
[2019-05-04] MEDS: FOLIC ACID 0.4 MG TABLET PO SCH (10:04)
[2019-05-04] MEDS: SERTRALINE 100 MG TABLET PO SCH (10:04)
[2019-05-04] MEDS: methylPREDNISolone 4 MG TABLET PO SCH (10:05)
[2019-05-04] MEDS: RANOLAZINE 500 MG TABLET PO SCH ×2 (10:05→21:55)
[2019-05-04] MEDS: COENZYME Q10 100 MG CAPSULE PO SCH ×2 (10:06→21:55)
[2019-05-04] MEDS: FUROSEMIDE 40 MG/4 ML VIAL IV SCH ×2 (10:06→19:06)
[2019-05-04] MEDS: metOLazone 2.5 MG TABLET PO SCH (10:07)
[2019-05-04] MEDS: MONTELUKAST 10 MG TABLET PO SCH (10:07)
[2019-05-04] MEDS: POTASSIUM CHLORIDE 20 MEQ TABLET PO SCH ×2 (10:37→21:56)
[2019-05-04] MEDS: DIGOXIN 0.125 MG TABLET PO SCH (13:57)
[2019-05-04] MEDS: PYRIDOXINE 100 MG TABLET PO SCH (21:54)
[2019-05-04] MEDS: MAGNESIUM OXIDE 400 MG TABLET PO SCH (21:55)
[2019-05-04] MEDS: FERROUS SULFATE 325 MG TABLET PO SCH (21:55)
[2019-05-04] MEDS: GABAPENTIN 300 MG CAPSULE PO SCH (21:56)
[2019-05-04] MEDS: ZOLPIDEM 5 MG TABLET PO PRN (21:56)
[2019-05-05] MEDS: ALBUTEROL/IPRATROPIUM 3 ML NEB RESP TX SCH ×4 (00:58→19:55)
[2019-05-05] MEDS: THYROID 60 MG TABLET PO SCH (06:19)
[2019-05-05] MEDS: ASPIRIN EC 81 MG TABLET PO SCH (06:19)
[2019-05-05] MEDS: PANTOPRAZOLE 40 MG TABLET PO SCH ×2 (06:19→18:25)
[2019-05-05 07:02] LABS: Basophils % 0.3 % (0.0-0.8); Eosinophils # 0.3 10*3/uL (0.0-0.87); Eosinophils % 2.9 % (0.00-10.9); Hematocrit 30.2 VOL% (42.0-52.0); Immature Granulocytes % 0.6 %; Immature Granulocytes Absolute 0.05 #; Lymphocytes # 0.6 10*3/uL (1.4-4.0); Lymphocytes % 7.3 % (21.2-54.2); Mean Corpuscular HGB Conc 33.1 GM/DL (32-36); Mean Corpuscular Volume 84.8 FL (87-102); Mean Platelet Volume 8.9 FL (9.6-12.0); Monocytes % 9.2 % (1.7-12.7); Neutrophils % 79.7 % (38.7-73.9); Platelet Count 296 T/CUMM (130-400); Red Blood Count 3.56 MC/CUMM (3.8-5.5); Red Cell Distribution Width 19.7 % (9.3-17.3); White Blood Count 8.6 T/CUMM (4-12)
[2019-05-05 07:48] LABS: Albumin 1.8 G/DL (3.4-5.0); Calcium 8.6 MG/DL (8.5-10.1); Osmolality,Calculated 266.7 MOS/KG (273-304); Total Protein 5.7 G/DL (6.4-8.3)
[2019-05-05] MEDS ORDERED: MAGNESIUM OXIDE 400 MG TABLET PO SCH (09:30)
[2019-05-05] MEDS ORDERED: POTASSIUM CHLORIDE 20 MEQ/15 ML UDCUP PO ONE ×2 (09:51→12:00)
[2019-05-05] MEDS ORDERED: MAGNESIUM SULF RIDER 2 GM in PREMIX 1 EACH IV ONE (09:52)
[2019-05-05] MEDS ORDERED: PHENOL 1.4% THROAT SPRAY 177 ML BOTTLE PO PRN (09:55)
[2019-05-05] MEDS: FOLIC ACID 0.4 MG TABLET PO SCH (10:12)
[2019-05-05] MEDS: carvediloL 12.5 MG TABLET PO SCH ×2 (10:13→18:25)
[2019-05-05] MEDS: COENZYME Q10 100 MG CAPSULE PO SCH ×2 (10:13→21:34)
[2019-05-05] MEDS: SERTRALINE 100 MG TABLET PO SCH (10:14)
[2019-05-05] MEDS: EPLERENONE 25 MG TABLET PO SCH (10:15)
[2019-05-05] MEDS: CHOLECALCIFEROL 1,000 UNIT TABLET PO SCH ×2 (10:15→21:33)
[2019-05-05] MEDS: metOLazone 2.5 MG TABLET PO SCH (10:16)
[2019-05-05] MEDS: RANOLAZINE 500 MG TABLET PO SCH ×2 (10:16→21:33)
[2019-05-05] MEDS: CYANOCOBALAMIN 500 MCG TABLET PO SCH ×2 (10:17→18:25)
[2019-05-05] MEDS: methylPREDNISolone 4 MG TABLET PO SCH (10:17)
[2019-05-05] MEDS: valACYclovir 500 MG TABLET PO SCH ×3 (10:17→21:33)
[2019-05-05] MEDS: APIXABAN 5 MG TABLET PO SCH ×2 (10:17→21:33)
[2019-05-05] MEDS: MONTELUKAST 10 MG TABLET PO SCH (10:17)
[2019-05-05] MEDS: LOSARTAN 25 MG TABLET PO SCH (10:20)
[2019-05-05] MEDS: ASCORBIC ACID 500 MG TABLET PO SCH ×2 (10:20→21:32)
[2019-05-05] MEDS: POTASSIUM CHLORIDE 20 MEQ/15 ML UDCUP PO SCH ×2 (10:22→21:32)
[2019-05-05] MEDS: FUROSEMIDE 40 MG/4 ML VIAL IV SCH (10:28)
[2019-05-05] MEDS: POTASSIUM CHLORIDE 20 MEQ TABLET PO SCH (10:31)
[2019-05-05] MEDS ORDERED: POTASSIUM CHLORIDE 20 MEQ TABLET PO ONE (12:00)
[2019-05-05] MEDS: CHOLESTYRAMINE 4 GM PACK PO SCH (14:52)
[2019-05-05] MEDS: DIGOXIN 0.125 MG TABLET PO SCH (14:52)
[2019-05-05] MEDS ORDERED: POTASSIUM CHLORIDE 20 MEQ TABLET PO SCH (15:00)
[2019-05-05] MEDS: FUROSEMIDE 40 MG TABLET PO SCH (16:06)
[2019-05-05] MEDS: PYRIDOXINE 100 MG TABLET PO SCH (21:32)
[2019-05-05] MEDS: ZOLPIDEM 5 MG TABLET PO PRN (21:33)
[2019-05-05] MEDS: FERROUS SULFATE 325 MG TABLET PO SCH (21:33)
[2019-05-05] MEDS: GABAPENTIN 300 MG CAPSULE PO SCH (21:33)
[2019-05-06] MEDS: ALBUTEROL/IPRATROPIUM 3 ML NEB RESP TX SCH ×4 (01:40→19:20)
[2019-05-06] MEDS: THYROID 60 MG TABLET PO SCH (06:20)
[2019-05-06] MEDS: PANTOPRAZOLE 40 MG TABLET PO SCH ×2 (06:20→18:22)
[2019-05-06] MEDS: ASPIRIN EC 81 MG TABLET PO SCH (06:20)
[2019-05-06 06:42] LABS: Basophils % 0.4 % (0.0-0.8); Eosinophils # 0.4 10*3/uL (0.0-0.87); Eosinophils % 4.8 % (0.00-10.9); Hematocrit 33.4 VOL% (42.0-52.0); Hemoglobin 10.6 GM/DL (14.0-18.0); Immature Granulocytes % 0.6 %; Immature Granulocytes Absolute 0.05 #; Lymphocytes # 0.8 10*3/uL (1.4-4.0); Lymphocytes % 9.6 % (21.2-54.2); Mean Corpuscular HGB Conc 31.7 GM/DL (32-36); Mean Corpuscular Volume 87.9 FL (87-102); Mean Platelet Volume 8.7 FL (9.6-12.0); Monocytes % 10.3 % (1.7-12.7); Neutrophils % 74.3 % (38.7-73.9); Platelet Count 283 T/CUMM (130-400); Red Cell Distribution Width 19.5 % (9.3-17.3); White Blood Count 8.2 T/CUMM (4-12)
[2019-05-06 06:42] LABS: Calcium 8.7 MG/DL (8.5-10.1); Osmolality,Calculated 266.5 MOS/KG (273-304)
[2019-05-06] MEDS ORDERED: POTASSIUM CHLORIDE 20 MEQ/15 ML UDCUP PO ONE ×2 (07:24→11:00)
[2019-05-06 07:41] LABS: Free T4 (Free Thyroxine) 0.82 NG/DL (0.76-1.46); Thyroid Stimulating Hormone 1.35 uIU/ml (0.358-3.74)
[2019-05-06] MEDS: CHOLESTYRAMINE 4 GM PACK PO SCH (09:19)
[2019-05-06] MEDS: LOSARTAN 25 MG TABLET PO SCH (09:22)
[2019-05-06] MEDS: FUROSEMIDE 40 MG TABLET PO SCH ×2 (09:22→15:40)
[2019-05-06] MEDS: CHOLECALCIFEROL 1,000 UNIT TABLET PO SCH ×2 (09:22→20:50)
[2019-05-06] MEDS: carvediloL 12.5 MG TABLET PO SCH ×2 (09:22→18:21)
[2019-05-06] MEDS: FOLIC ACID 0.4 MG TABLET PO SCH (09:23)
[2019-05-06] MEDS: RANOLAZINE 500 MG TABLET PO SCH ×2 (09:23→20:50)
[2019-05-06] MEDS: ASCORBIC ACID 500 MG TABLET PO SCH ×2 (09:23→20:50)
[2019-05-06] MEDS: CYANOCOBALAMIN 500 MCG TABLET PO SCH ×2 (09:24→18:21)
[2019-05-06] MEDS: APIXABAN 5 MG TABLET PO SCH ×2 (09:24→20:50)
[2019-05-06] MEDS: metOLazone 2.5 MG TABLET PO SCH (09:25)
[2019-05-06] MEDS: SERTRALINE 100 MG TABLET PO SCH (09:25)
[2019-05-06] MEDS: MONTELUKAST 10 MG TABLET PO SCH (09:25)
[2019-05-06] MEDS: valACYclovir 500 MG TABLET PO SCH ×3 (09:25→20:51)
[2019-05-06] MEDS: methylPREDNISolone 4 MG TABLET PO SCH (09:25)
[2019-05-06] MEDS: EPLERENONE 25 MG TABLET PO SCH (09:25)
[2019-05-06] MEDS: COENZYME Q10 100 MG CAPSULE PO SCH ×2 (09:26→20:50)
[2019-05-06] MEDS: POTASSIUM CHLORIDE 20 MEQ/15 ML UDCUP PO SCH ×3 (09:27→20:50)
[2019-05-06] MEDS: DIGOXIN 0.125 MG TABLET PO SCH (15:40)
[2019-05-06] MEDS: FERROUS SULFATE 325 MG TABLET PO SCH (20:50)
[2019-05-06] MEDS: PYRIDOXINE 100 MG TABLET PO SCH (20:50)
[2019-05-06] MEDS: ZOLPIDEM 5 MG TABLET PO PRN (20:50)
[2019-05-06] MEDS: GABAPENTIN 300 MG CAPSULE PO SCH (20:51)
[2019-05-07] MEDS: ALBUTEROL/IPRATROPIUM 3 ML NEB RESP TX SCH ×3 (01:05→13:18)
[2019-05-07 06:27] LABS: Basophils % 0.5 % (0.0-0.8); Eosinophils # 0.5 10*3/uL (0.0-0.87); Hematocrit 32.2 VOL% (42.0-52.0); Hemoglobin 10.3 GM/DL (14.0-18.0); Immature Granulocytes % 0.6 %; Immature Granulocytes Absolute 0.05 #; Lymphocytes % 11.4 % (21.2-54.2); Mean Corpuscular Volume 87.5 FL (87-102); Mean Platelet Volume 8.8 FL (9.6-12.0); Monocytes % 9.7 % (1.7-12.7); Neutrophils % 71.8 % (38.7-73.9); Platelet Count 266 T/CUMM (130-400); Red Blood Count 3.68 MC/CUMM (3.8-5.5); Red Cell Distribution Width 19.3 % (9.3-17.3); White Blood Count 8.8 T/CUMM (4-12)
[2019-05-07] MEDS: PANTOPRAZOLE 40 MG TABLET PO SCH (06:41)
[2019-05-07] MEDS: THYROID 60 MG TABLET PO SCH (06:41)
[2019-05-07] MEDS: ASPIRIN EC 81 MG TABLET PO SCH (06:41)
[2019-05-07 06:54] LABS: Osmolality,Calculated 267.2 MOS/KG (273-304)
[2019-05-07] MEDS: FOLIC ACID 0.4 MG TABLET PO SCH (09:32)
[2019-05-07] MEDS: RANOLAZINE 500 MG TABLET PO SCH (09:33)
[2019-05-07] MEDS: metOLazone 2.5 MG TABLET PO SCH (09:33)
[2019-05-07] MEDS: COENZYME Q10 100 MG CAPSULE PO SCH (09:34)
[2019-05-07] MEDS: valACYclovir 500 MG TABLET PO SCH (09:34)
[2019-05-07] MEDS: methylPREDNISolone 4 MG TABLET PO SCH (09:34)
[2019-05-07] MEDS: CHOLECALCIFEROL 1,000 UNIT TABLET PO SCH (09:34)
[2019-05-07] MEDS: CYANOCOBALAMIN 500 MCG TABLET PO SCH (09:34)
[2019-05-07] MEDS: carvediloL 12.5 MG TABLET PO SCH (09:35)
[2019-05-07] MEDS: ASCORBIC ACID 500 MG TABLET PO SCH (09:35)
[2019-05-07] MEDS: SERTRALINE 100 MG TABLET PO SCH (09:35)
[2019-05-07] MEDS: LOSARTAN 25 MG TABLET PO SCH (09:35)
[2019-05-07] MEDS: MONTELUKAST 10 MG TABLET PO SCH (09:35)
[2019-05-07] MEDS: EPLERENONE 25 MG TABLET PO SCH (09:35)
[2019-05-07] MEDS: APIXABAN 5 MG TABLET PO SCH (09:36)
[2019-05-07] MEDS: CHOLESTYRAMINE 4 GM PACK PO SCH (09:37)
[2019-05-07] MEDS: FUROSEMIDE 40 MG TABLET PO SCH (09:37)
[2019-05-07] MEDS: POTASSIUM CHLORIDE 20 MEQ/15 ML UDCUP PO SCH (09:37)
[2019-05-07] MEDS ORDERED: FUROSEMIDE 40 MG/4 ML VIAL IV SCH (09:57)
[2019-05-07] MEDS ORDERED: FERROUS SULFATE 325 MG TABLET PO SCH (10:00)
[2019-05-07] MEDS ORDERED: POTASSIUM CHLORIDE 20 MEQ TABLET PO ONE (12:33)
[2019-05-07 12:49] VITALS: BP 124/77
[2019-05-07] MEDS: DIGOXIN 0.125 MG TABLET PO SCH (14:02)
== END 2019-05-07 15:37 | disposition swing bed (61) | DRG 292 ==
LOC: N.ED 10:07 → N.EDINP 11:24 → N.TELEN 13:11